=== PATIENT | male | born 1965 | race Caucasian/White ===

== ENCOUNTER 2024-03-17 06:05 | Inpatient (IN) | payer OTHER, SELFPAY ==
[2024-03-17] VITALS (24 sets, daily range): BP systolic 89–185; BP diastolic 49–150; BMI 44.8; BMI 43.5
[2024-03-17 02:48] LABS: % Basophils 0.4 % (0-2); % Eosinophils 0.8 % (0-6); % Immature Granulocytes 0.3 % (0-0.5); % Lymphocytes 10.6 % (20.5-51.1); % Monocytes 5.9 % (1.7-9.3); Absolute Basophils 0.1 10^3/uL (0-0.2); Absolute Eosinophils 0.1 10^3/uL (0-0.7); Absolute Lymphocytes 1.3 10^3/uL (1.2-3.4); Absolute Monocytes 0.7 10^3/uL (0.1-0.6); Absolute Neutrophils 10.3 10^3/uL (1.4-6.5); Hematocrit 42.1 % (39.0-52.0); Hemoglobin 14.1 g/dL (13.0-18.0); Mean Corp Hgb Conc. 33.5 g/dL (33.0-37.0); Mean Corpuscular Hgb 27.9 pg (27.0-31.0); Mean Corpuscular Volume 83.4 fL (80.0-94.0); Mean Platelet Volume 8.7 fL (7.4-10.4); Nucleated Red Blood Cells % 0 % (-); Platelet Count 322 10^3/uL (130-400); Red Blood Cell Count 5.05 10^6/uL (4.70-6.10); Red Cell Dist. Width 13.7 % (11.5-14.5); White Blood Cell Count 12.6 10^3/uL (4.8-10.8)
--- NOTE | 2024-03-17 02:48 | ED.GENMED ---
History of Present Illness
General
Chief Complaint: Breathing Problem
Source: patient and previous hospital records (Previous hospitalization July 2023 as well as March 2022 for very similar presentations. Treated for hypertensive urgency, CHF, rapid A-fib.)
Exam Limitations: none
Time Seen by Provider: 03/17/24 02:37
Nursing documentation reviewed up to this point in time: agreed with
Travel History
Have you had any contact with someone who has COVID-19?: No
Do you have any symptoms of coronavirus? Fever > 100 degrees, chills, cough, shortness of breath, sore throat, loss of taste or smell, muscle aches, or headache?: No
History of Present Illness
History of Present Illness:
This is a 59-year-old gentleman who has history of paroxysmal atrial fibrillation, CHF, hypertension, nonischemic cardiomyopathy previously hospitalized March 2022 and then again July 2023 for very similar presentations of progressive shortness
of breath over the past week with paroxysmal nocturnal dyspnea over the past 2-3 nights, progressive in nature and intermittent palpitations.
He admits to running out of his medications a few months ago as his insurance lapsed and he has been unable to afford them.
Similar medication noncompliance and financial constraints noted on previous hospitalizations.
He denies cough, denies fever nor chills. He does admit to some chest pressure, heaviness that began yesterday morning, persistent throughout the day, worse tonight.
He denies lower extremity edema nor pain.
Past History
Past History
ED Past Medical History: Arrthythmia (A-fib), CHF, HTN and Psychiatric (Anxiety, Depression, prior history of substance abuse)
Social History
Tobacco: Non-smoker
Alcohol: None
Drug: Former user
Personal: Single
Living: alone
Employment: Employed
Family History
Family History: Other (Noncontributory)
Phy Exam
Physical Exam
Physical Exam:
GENERAL: 59-year-old obese gentleman appears older than stated age. Awake and alert, appears in mild to moderate distress, mild to moderate tachypnea but able to speak in full sentences.
EYE: pupils equal and reactive
NECK: Supple, no significant adenopathy. Mild JVD.
ENT: o/p clr, mmm.
CARDIAC: Irregularly irregular, tachycardic
LUNGS: Mild to moderate acute respiratory distress, bilateral rales one third of the way up.
ABDOMEN: Obese, soft, without focal tenderness, no r/g, no cvat
NEUROLOGICAL: Alert and oriented, no focal neuro deficits
SKIN: Warm and dry, normal color, skin intact.
MUSCULOSKELETAL: Trace pretibial edema bilateral lower extremities, well perfused. Nontender.
PSYCH: Normal and appropriate interaction.
Scores
Heart Failure Risk
Heart Failure Risk Score: Yes
History of Stroke or TIA: No
History of intubation for respiratory distress: No
Heart rate on ED arrival >/= 110: Yes
SaO2 <90% on arrival on room air: No
HR >/=110 during 3min walk test (or too ill to perform test): Yes
ECG has acute ischemic changes: No
Urea >/=12mmol/L (BUN 33.6mg/dL): No
Serum CO2>/=35mmol/L: No
Troponin I or T elevated to OK Level (0.4mg/dL): No
NT-proBNP >/=5,000ng/L (5,000pg/ml): No
HF Risk Score: 2
Admission Status: MEDIUM RISK 9.2% Consider observation or discharge to home with homecare & f/u visit to PCP/[facility] Beveler, or SNF for treatment
Course
Orders/Labs/Results
Orders:
Orders
03/17/24 02:29
Electrocardiogram (*1) Urgent
Reason for Study: Shortness of Breath
03/17/24 02:30
EKG- Treatment ONCE
03/17/24 02:37
Complete Blood Count/With Diff Urgent
Comprehensive Metabolic Panel Urgent
NT-proBNP Urgent
Troponin I Urgent
03/17/24 02:45
Diltiazem 125 mg/125 ml Nss [Cardizem] 125 mg in 125 ml .ROUTE .STK-MED
Diltiazem HCl [Cardizem] 25 mg .ROUTE .STK-MED ONE
03/17/24 02:47
Diltiazem 125 mg/125 ml Nss [Cardizem] 125 mg in 125 ml IV NOW
Initial dose in mg/hr, then titrate:: 5
Titrate to keep:: Heart rate 80-100 bpm
Titrate by mg/hr:: 5 mg/hr
Frequency of titrations (minutes):: 15
Maximum dose in mg/hr:: 15
Diltiazem HCl [Cardizem] 25 mg IV NOW STA
Furosemide [Lasix] 80 mg IV NOW STA
CR Chest Portable - 1 View Urgent
Comment:
Reason For Exam: SOB
Reason Study Needs to be Portable: Patient Unstable
03/17/24 02:48
Furosemide [Lasix] 80 mg .ROUTE .STK-MED ONE
Abnormal Lab Results
03/17/24
02:37
WBC 12.6 H 10^3/uL
(4.8-10.8)
Absolute Neuts (auto) 10.3 H 10^3/uL
(1.4-6.5)
Absolute Monos (auto) 0.7 H 10^3/uL
(0.1-0.6)
Neutrophils % 82.0 H %
(42.2-75.2)
Lymphocytes % 10.6 L %
(20.5-51.1)
Sodium 134 L mmol/L
(135-145)
Glucose 123 H mg/dl
(70-99)
ALT 76 H U/L
(0-50)
Alkaline Phosphatase 155 H U/L
(38-126)
Troponin I 0.056 H* ng/ml
03/17/24 02:37
03/17/24 02:37
Vital Signs
Initial and Last Documented VS:
Initial Vital Signs
Temp Pulse Resp Pulse Ox
98.3 F 150 28 94
03/17/24 02:19 03/17/24 02:19 03/17/24 02:19 03/17/24 02:19
Last Documented Vital Signs
Temp Pulse Resp BP Pulse Ox
98.3 F 102 18 151/105 96
03/17/24 02:19 03/17/24 04:15 03/17/24 04:15 03/17/24 04:00 03/17/24 03:01
MDM/Problems Addressed
Differential Diagnosis Includes:
Patient presents with rapid A-fib, tachypnea quite concerning for acute CHF.
Chest pain concerning for ACS.
Similar presentations in July 2023 as well as March 2022.
He is noted to be significantly hypertensive with similar markedly elevated blood pressure readings noted upon initial presentation on previous occasions.
Labs are pending including BNP, troponin.
Will initiate IV Cardizem bolus and drip to assist with rate control and hopefully improve blood pressure. Will give an IV dose of Lasix.
Will consider IV nitroglycerin if blood pressure remains elevated.
Will check portable chest x-ray.
Pulse ox 92 to 93% on room air but moderate tachypnea/increased work of breathing which has improved with supplemental nasal cannula oxygen.
Unfortunately, patient continues to struggle with financial constraints, lack of healthcare coverage with again, inadvertent lapse in medications and follow-up with specialist.
Will plan to admit to hospitalist service.
Chronic conditions affecting care: HTN, Cardiomyopathy and Arrhythmia
Acute Exacerbation and/or Progression of Chronic Illness: HTN, Cardiomyopathy and Arrhythmia
*Radiology
Radiology exam reviewed: preliminary read by ED provider (Chest x-ray shows interstitial fullness bilaterally consistent with pulmonary edema. Moderate cardiomegaly.)
*Pulse Oximetry
Patient hypoxic: no
*EKG
Interpreted by ED Provider?: Yes
Interpretation: abnormal
Comparison EKG: changes noted (A-fib with rapid ventricular response has replaced normal sinus rhythm noted August 14, 2023)
Rate: tachycardiac
Rhythm: a-fib
[place]: normal axis
Interval: normal QT interval
QRS Pattern: normal QRS
Ischemia: non-specific ST changes
*Manufacturing Test Engineer Interpretation
Rate: tachycardiac
Interpretation: abnormal
Rhythm: a-fib
*Critical Care Note
Total Time (30-74mins, 75-104mins- exclusive of procedures): 30
comment:
Critical care statement: A total of 30 minutes of critical care time was provided for this patient. This includes management of unstable vital signs, evaluation of the patient at bedside, reviewing the patient's pertinent medical records, discussion
with consultants, review of old EKGs and review of pertinent medical records. This time with separate from time utilized to perform the aforementioned documented procedures
Update Note
Update Note:
03/17/2024 0457 AM
A-fib persists but marked improvement in heart rate with initiation of IV Cardizem.
Hypertension has markedly improved as well.
Patient is diuresing well after IV Lasix and moderate tachypnea has improved.
Troponin borderline elevated 0.056, similar borderline elevations noted in the past.
BNP elevated greater than 3000 and chest x-ray shows bilateral interstitial fullness/edema as well as moderate cardiomegaly, more pronounced compared to previous film in July.
Patient has been feeling poorly at least over the past week and it is unclear as to how long he has been in A-fib. This along with inadvertent discontinuation of Eliquis, this is why I have held off on electrical cardioversion.
Will admit to hospitalist service.
ED Attending Note
-
Portions of this chart may have been created with voice recognition software.� Occasional wrong word or��sound alike� substitutions may have occurred due to the inherent limitations of voice recognition software.
Discharge Plan
Departure
Patient Disposition: Admit
Date of Disposition: 03/17/24
Time of Disposition: 04:56
Admit to: Telemetry
Admit to doctor: Nikolay
Presentation/result/management discussed w/ accepting MD/DO: Hospitalist
Condition: Serious
Discharge Problem:
Atrial fibrillation with RVR, CHF (congestive heart failure), Hypertensive crisis
Prescriptions:
No Action
carvedilol 12.5 mg Tablet
12.5 mg PO BID Qty: 30 0RF
amlodipine 5 mg Tablet
5 mg PO DAILY Qty: 30 0RF
Eliquis 5 mg tablet
5 mg PO BID Qty: 60 0RF
Interventions
Interventions:
*Risk Screen - Suicide Last Done: 03/17/24 02:19
*Neglect/Abuse Screening Last Done: 03/17/24 02:19
*ED COVID-19 Vaccine History Last Done: 03/17/24 02:19
ED- Cardiac Assessment Last Done: 03/17/24 03:32
ED- Pulmonary Assessment Last Done: 03/17/24 03:32
Discharge Date and Time
Print Language: CAMEROONIAN
[2024-03-17] MEDS: CARDIZEM 125 IV ×3 (02:51→21:13)
[2024-03-17] MEDS: LASIX 80 MG IV (02:53)
[2024-03-17] MEDS: CARDIZEM 25 MG IV (02:53)
[2024-03-17 03:05] LABS: ALT (SGPT) 76 U/L (0-50); AST (SGOT) 55 U/L (17-59); Albumin 4.5 g/dl (3.5-5.0); Alkaline Phosphatase 155 U/L (38-126); Blood Urea Nitrogen 15 mg/dl (9-20); Calcium 9.2 mg/dl (8.4-10.2); Carbon Dioxide 22 mmol/L (22-30); Chloride 105 mmol/L (98-107); Estimated Creatinine Clearance 122 ml/min; Glucose 123 mg/dl (70-99); Potassium 4.2 mmol/L (3.5-5.1); Sodium 134 mmol/L (135-145); Total Protein 7.5 g/dl (6.3-8.2); eGFR > 60.00
[2024-03-17 03:34] LABS: NT-proBNP 3130 pg/ml; Troponin I 0.056 ng/ml
--- NOTE | 2024-03-17 05:13 | HPS.HSE ---
Family Physician
-
Family Physician: * NONE
Chief Complaint
-
shortness of breath
History of Present Illness
59-year-old male past medical history of paroxysmal atrial fibrillation, nonischemic cardiomyopathy, hypertension, anxiety/depression, presenting with progressive shortness of breath over the past few days particularly at night and when he lies down
flat and with exertion. He has chest pressure with exertion. Denies chest pain currently. Denies any dizziness or palpitations. He has increased lower extreme edema. He denies any cough or fevers or chills.
He ran out of his medications a few months ago because his insurance labs and he has been unable to afford them. He does not follow area attendant.
He denies smoking or alcohol use.
Medical History
Past Medical History
Past Medical History: Reports Other (paroxysmal atrial fibrillation, nonischemic cardiomyopathy, hypertension, anxiety/depression)
Past Surgical History: Reports None
Social History
Tobacco: Non-smoker
Alcohol: None
Drug: None
Family History
Family History: Not pertinent
Allergies / Home Medications
Allergies reflects when Allergies were last updated in [facility].
Home Medications with original date entered in [facility]
Allergy/Medication List:
Allergies
Allergy/AdvReac Type Severity Reaction Status Date / Time
No Known Allergies Allergy Verified 03/17/24 02:18
Home Medications
amlodipine 5 mg tablet 5 mg PO DAILY #30 tabs 08/16/23
carvedilol 12.5 mg tablet 12.5 mg PO BID #30 tabs 08/16/23
apixaban 5 mg tablet (Eliquis) 5 mg PO BID #60 tabs 08/18/23
Review of Systems
-
History Source: Patient
A 12 point ROS was completed and negative except as noted: Yes
Constitutional: Reports No Symptoms
EENT: Reports No Symptoms
Respiratory: Reports See HPI
Cardiac: Reports See HPI
Abdomen/GI: Reports No Symptoms
: Reports No Symptoms
Musculoskeletal: Reports No Symptoms
Skin: Reports No Symptoms
Neurological: Reports No Symptoms
Endocrine: Reports No Symptoms
Hematologic/Lymphatic: Reports No Symptoms
Psych: Reports No Symptoms
Physical Exam
Vital Signs
Vital Signs
Temp Pulse Resp BP Pulse Ox
98.3 F 102 18 151/105 96
03/17/24 02:19 03/17/24 04:15 03/17/24 04:15 03/17/24 04:00 03/17/24 03:01
Physical Exam
General: Well Developed, Well Nourished and No Apparent Distress
HEENT: NormoCephalic, Moist mucous membranes and Atraumatic
Respiratory: Clear
Cardiac: S1/S2, Tachycardia and Peripheral Edema; No Murmur or Rub
GI: Soft, Non Tender, Non Distended and Normal Bowel Sounds; No Organomegaly
Rectal: Deferred by Provider
Musculoskeletal: No Clubbing, No Cyanosis and No Edema
Skin: No Rash
Neuro: Nonfocal/grossly intact
Laboratory Results
-
03/17/24 02:37
03/17/24 02:37
Laboratory Results
Total Bilirubin 1.0 mg/dl (0.2-1.3) 03/17/24 02:37
AST 55 U/L (17-59) 03/17/24 02:37
ALT 76 U/L (0-50) H 03/17/24 02:37
Alkaline Phosphatase 155 U/L (38-126) H 03/17/24 02:37
Troponin I 0.056 ng/ml H* 03/17/24 02:37
Data Reviewed
-
Lab Data: Labs Reviewed by me
Old Records: Reviewed
Impression/Plan
-
IMPRESSION:
PLAN:
# Atrial fibrillation with RVR due to medication noncompliance
-Cardizem drip
-Continue Eliquis
-Cardiology consulted
# Acute on chronic HFrEF exacerbation
# History of nonischemic cardiomyopathy
-Chest x-ray shows pulmonary edema
-Cardiac BNP 3100
-Check I's and O's, daily weights
-80 IV Lasix given, continue 40 IV twice daily
-Check echo
# Nonischemic myocardial injury
-Troponin 0.056, continue to trend
Essential hypertension
-Continue Coreg, amlodipine
Anxiety/depression
Full code
DVT prophylaxis�Eliquis
Cardiac diet
--- NOTE | 2024-03-17 07:22 | PTCARENOTE ---
Pt admitted to IVU ~0600. Pt belongings w/ pt. Cardizem infusing at 15mg/hr. oriented pt to unit.
[2024-03-17 08:00] LABS: Troponin I 0.068 ng/ml
[2024-03-17] MEDS: COREG 12.5 MG PO ×2 (08:14→19:08)
[2024-03-17] MEDS: NORVASC 5 MG PO (08:14)
[2024-03-17] MEDS: LASIX 40 MG IV ×2 (08:15→16:06)
[2024-03-17] MEDS: ELIQUIS 5 MG PO ×2 (08:20→19:08)
--- NOTE | 2024-03-17 09:05 | CON.CAR ---
Addendum entered and electronically signed by Hugo Sullivan MD 03/17/24 10:09:
I saw and examined the patient.
The BREAKFAST MANAGER's note was reviewed and I agree with the note.
Comment: 59 y/o male with hypertension, anxiety, CM with most recent EF 45-50%, HFmEF, PAF, medical non-compliance due to financial/insurance issues. He is here for 2-3 days of SOB, which became severe. His symptoms are consistent with acute on
chronic HF exacerbation. Unfortunately, he is working on 2 days a week and medications and thus compliance will be an issue.
- IV lasix
- Dilt gtt for now likely transition tomorrow
- intermediate project manager AC concern given medication and financial instability
Original Note:
Consultation
Consultation Request
Date/Time Consultation Requested: 03/17/24612
Date/Time Consultation Performed: 03/17/24 0850
Requesting Provider: Dr. Link
Performing Provider: Violeta POTTER for Dr. Sullivan
Reason for Consultation: AFIB, CHF
Medical History
-
Chief Complaint: SOB
History of Present Illness:
59 y/o male with hypertension, anxiety, CM with most recent EF 45-50%, HFmEF, PAF, medical non-compliance due to financial/insurance issues. He is here for 2-3 days of SOB, which became severe. Worse with exertion and laying. He was seen to have
severely elevated BP on arrival, AFIB with RVR, and also [id number] HFMEF. He is admitted and was placed on IV lasix, IV diltiazem drip, and otherwise his previous medicines were resumed. He reports he has taken no medicines for about 5 months
due to insurance issues and has not followed up in the office for the same reason. He still appears SOB to my assessment, but reports that he feels SO much better than prior to coming in.
Past Medical History
Past Medical History: Arrhythmias, CHF, HTN and Other (as above)
Social History
Tobacco: Non-Smoker
Alcohol: Occasional
Family History
Family History: Reviewed & Not Pertinent
Allergies / Home Medications
Allergy/AdvReac Type Severity Reaction Status Date / Time
No Known Allergies Allergy Verified 03/17/24 02:18
These are previous medicines that he has no been taking as noted
�Medication �Instructions �Recorded �Confirmed �Type
amlodipine 5 mg tablet 5 mg PO DAILY #30 tabs 08/16/23 Rx
carvedilol 12.5 mg tablet 12.5 mg PO BID #30 tabs 08/16/23 Rx
apixaban 5 mg tablet (Eliquis) 5 mg PO BID #60 tabs 08/18/23 Rx
Review of Systems
-
History Source: Patient
All other systems: Negative unless noted
Respiratory: Trouble Breathing
Physical Exam
Vital Signs
Temp Pulse Resp BP Pulse Ox
98.5 F 99 20 153/86 96
03/17/24 07:54 03/17/24 08:00 03/17/24 07:54 03/17/24 07:55 03/17/24 07:54
Lab Results
03/17/24 02:37
03/17/24 02:37
Troponin I 0.068 ng/ml H* 03/17/24 06:47
Jcb-H-Iorklljcazg Pept 3130 pg/ml 03/17/24 02:37
Physical Exam
General: Well Developed, Well Nourished and No Apparent Distress
HEENT: Normocephalic and Anicteric
Respiratory: Other (diminished to b/l bases)
Cardiac: Irregular Rhythm
Skin: Warm and Dry
Neuro: AO x 3
Psych: Calm
Impression / Plan
-
Yvvhr-ht-aqqcxme HFmEF:
-BNP/CXR and symptoms consistent with CHF
-most recent echo with EF 45-50%
-agree with IV lasix, which requires intensive monitoring for toxicity
-CHF education
-limit sodium/fluid
HTN: improving
-severe on arrival. In setting of having stopped meds as OP.
-monitor with resumption of CCB/BB, as well as diuresis
AFIB with RVR:
-Coreg resumed
-remains on diltiazem drip- monitor telemetry
-Eliquis resumed for his [id number] score of 2 (HTN, CHF)- there are issues with cost for NOACs due to lack of insurance, and I do not think warfarin would be safe for him due to follow-up issues (frequent lab draws etc). He has not come to
follow-up office visits either. C/s case management to see if there are options for him for assistance.
-patient likely with sleep apnea- would benefit from OP assessment
Abnormal troponin:
-suspect acute non-ischemic myocardial injury in setting of HTN, tachycardia, and CHF exacerbation
-trend to peak, echo ordered by primary team
-cath 2021 with no CAD
NICM:
-EF 45-50% most recently
-updated echo ordered
-meds limited by compliance, cost, and
Will need CM consultation this admit to assess options to help with compliance (patient assistance, etc.)
Data Reviewed
-
EKG: Tracing Personally Visualized and interpreted (AFIB with RVR 168 BPM, NS ST abnormalities)
Radiology: Report Reviewed by me (CXR 03/17/24: Findings consistent with pulmonary edema. Haziness of each hemidiaphragm, suggestive of small bilateral pleural effusions.)
Medical Tests (Nuc Med, Echo etc): Report Reviewed by me (Echo 08/14/23: With the use of Lumason there is mid septal dyskinesis appreciated with mild LV dysfunction. Left ventricular ejection fraction estimated at 45-50%. Mild concentric left
ventricular hypertrophy. Mildly dilated aorta, aortic root 4 cm.)
Labs: Labs Reviewed by me
--- NOTE | 2024-03-17 09:59 | PTCARENOTE ---
Addendum entered by Isabela Garsia RN 03/17/24 18:04:
Cardizem drip running at 5 mg /hr not 15 mg.
Original Note:
Assumed care of pt from night RN. Pt received awake and alert, Ox3. CM shows AF 90-100's, Cardizem drip infusing at 15 mg /hr through RFA. Pt denies any pain or discomfort. Diuresing well after am Lasix.
--- NOTE | 2024-03-17 11:52 | CM ---
Reviewed chart. Met with Mr. Saenz to review discharge plans. He states prior to admission he rents a room from his landlord in a spilt level home with seven steps to enter. He states he has eight steps to get to bedroom/full bathroom. He states
prior to admission he was independent with ambulation and adls. He states he currently blake not have any health insurance. Reviewed with the patient assistance program for [place]. Gave him the application to complete. He states he already used
the one month free coupon. [facility] to check cost of Amlodipine 5 mg po would be $9.00 a month and Coreg 12.5 would be $4.00 a month. He feels he would be able to afford $13.00 a month. Medical work-up in progress. The
discharge plan is to return home when medically stable.
--- NOTE | 2024-03-17 12:19 | W.PN.HOSP.TC ---
Today's Communication/Plan
-
IV Cardizem
IV Lasix.
Assessment / Plan
Assessment / Plan
Impression:
Chronic atrial fibrillation with rapid ventricular response
Acute CHF reduced EF
Acute pulmonary edema secondary to CHF
Nonischemic myocardial injury
Essential hypertension.
Anxiety/depression
Obesity with BMI of 43
Medication noncompliance due to lack of insurance
Plan:*
Chronic atrial fibrillation with RVR.
Rate improved with initiation of Cardizem drip.
Continue for another 24 hours.
Continue anticoagulation with Eliquis
Acute CHF reduced EF at 35%. Nonischemic cardiomyopathy.
Update echocardiogram
Suspect decompensated in the settings of rapid ventricular rate.
Chest x-ray with pulmonary edema upon presentation
Improved and responding to IV diuresis.
Continue Lasix 40 mg IV twice daily
Monitor daily weight, renal function and hemodynamics
Updated echocardiogram pending.
Nonischemic myocardial injury with troponin at 0.05. Trend
Essential hypertension
Continue preadmission Coreg and amlodipine.
Case management consultation for discharge planning,
Anticipated Discharge: > 48 hours
Subjective/Interval History
-
Date of Service: March 17, 2024
Objective Data
-
Labs:
Laboratory Results
03/17/24
02:37
WBC 12.6 H
Hgb 14.1
Hct 42.1
Plt Count 322
Sodium 134 L
Potassium 4.2
Chloride 105
Carbon Dioxide 22
BUN 15
Creatinine 0.9
Glucose 123 H
Calcium 9.2
Total Bilirubin 1.0
AST 55
ALT 76 H
Alkaline Phosphatase 155 H
Vital Signs:
Vital Signs
Temp Pulse Resp BP Pulse Ox
99 F 78 20 116/85 94
03/17/24 11:21 03/17/24 11:45 03/17/24 11:21 03/17/24 11:00 03/17/24 11:21
I&O
03/16/24 03/17/24 03/18/24
06:59 06:59 06:59
Output Total 1849
Balance -1849 / -1849
Physical Exam
-
General: Well Developed and No Apparent Distress
HEENT: Normocephalic, Atraumatic and Moist Mucous Membranes
Respiratory: Clear to Auscultation
Cardiac: Regular Rhythm and S1/S2; Negative Murmur, Rub or Gallop
GI: Soft, Nontender, Nondistended and Normal Bowel Sounds; Negative Organomegaly
Rectal: Deferred by Provider
Musculoskeletal: No Clubbing, No Cyanosis and No Edema
Skin: Negative Rash
Neuro: Awake, Alert, Oriented, AO x 3 and Nonfocal/Grossly Intact
[2024-03-17 13:20] LABS: Troponin I 0.085 ng/ml
--- NOTE | 2024-03-17 13:25 | CARDSERVLU ---
Echocardiogram with Lumason completed after protocol screening completed. Allergies verified.
Patent IV site: _L AC____
IV site flushed with 0.9% NaCl pre and post administration.
Diluted bolus method utilized to enhance visualization of ventricular gates.
Total volume given: __4.5__ mL
Patient tolerated all procedures well without complications.
[2024-03-17 19:21] LABS: Troponin I 0.064 ng/ml
--- NOTE | 2024-03-17 21:14 | PTCARENOTE ---
Pt received start of shift, HR Afib 70s-100s. Cardizem infusing at 5mg/hr. Educated pt on plan of care, pt states no questions at this time. Pt denies any CP, worsening SOB, or any lightheadedness/dizziness. Pt informed to notify RN if any changes,
call cedeño within reach.
[2024-03-18 03:08] VITALS: BP 140/83
[2024-03-18 03:51] LABS: % Basophils 0.5 % (0-2); % Eosinophils 0.9 % (0-6); % Immature Granulocytes 0.3 % (0-0.5); % Lymphocytes 15.8 % (20.5-51.1); % Monocytes 7.9 % (1.7-9.3); % Neutrophils 74.6 % (42.2-75.2); Absolute Eosinophils 0.1 10^3/uL (0-0.7); Absolute Lymphocytes 1.4 10^3/uL (1.2-3.4); Absolute Monocytes 0.7 10^3/uL (0.1-0.6); Absolute Neutrophils 6.5 10^3/uL (1.4-6.5); Hematocrit 37.1 % (39.0-52.0); Hemoglobin 12.6 g/dL (13.0-18.0); Mean Corpuscular Hgb 28.5 pg (27.0-31.0); Mean Corpuscular Volume 83.9 fL (80.0-94.0); Mean Platelet Volume 9.1 fL (7.4-10.4); Nucleated Red Blood Cells % 0 % (-); Platelet Count 251 10^3/uL (130-400); Red Blood Cell Count 4.42 10^6/uL (4.70-6.10); Red Cell Dist. Width 13.8 % (11.5-14.5); White Blood Cell Count 8.7 10^3/uL (4.8-10.8)
[2024-03-18 04:28] LABS: ALT (SGPT) 51 U/L (0-50); AST (SGOT) 35 U/L (17-59); Alkaline Phosphatase 128 U/L (38-126); Blood Urea Nitrogen 29 mg/dl (9-20); Calcium 9.5 mg/dl (8.4-10.2); Carbon Dioxide 27 mmol/L (22-30); Chloride 99 mmol/L (98-107); Estimated Creatinine Clearance 77 ml/min; Glucose 114 mg/dl (70-99); Potassium 3.9 mmol/L (3.5-5.1); Sodium 134 mmol/L (135-145); Total Bilirubin 0.9 mg/dl (0.2-1.3); Total Protein 6.6 g/dl (6.3-8.2); eGFR 57.18
[2024-03-18 07:02] VITALS: BP 138/99
[2024-03-18] MEDS: ELIQUIS 5 MG PO ×2 (08:49→19:40)
[2024-03-18] MEDS: NORVASC 5 MG PO (08:49)
[2024-03-18] MEDS: LASIX 40 MG IV (08:50)
[2024-03-18] MEDS: COREG 12.5 MG PO (08:50)
[2024-03-18] MEDS: FLUSH (NSS) 1 FLUSH IV (08:51)
--- NOTE | 2024-03-18 09:20 | PTCARENOTE ---
very pleasant patient, monitor shows Afib, VSS. IV Cardizem drip remains at 5ml/hr via right ac without difficulties.
[2024-03-18 10:00] VITALS: BMI 43.2
--- NOTE | 2024-03-18 10:13 | W.PN.CD ---
Addendum entered and electronically signed by Tucker Oconnor MD 03/18/24 10:43:
-
-
Given mild bump in creatinine we will hold off on initiation of lisinopril until creatinine falls.
-
-
Original Note:
Today's Communication / Plan
-
Stop amlodipine
Stop IV dilt
Increase Coreg (BP and HR control). Move to Toprol if HR needs more control
Begin ADRIENNE-I
No Lasix today
Continue Eliquis
Follow BMP
Impression / Plan
-
Dlite-op-qlkljiu HFrEF with a nonischemic cardiomyopathy (no cad cath 2021)
-BNP(3130) when compensated pBNP 716 /CXR and symptoms consistent with CHF
-prior EF 45-50%
-Echo 03/17/2024: LVEF 40%, LA normal, mild TR, nml est PASP/RA
-agree with IV lasix, which requires intensive monitoring for toxicity
-HF education. Na+/Fluid restriciton
-rate control AFib
HTN, better
AFIB with RVR
-Unknown duration, unknown pattern, he has had prior cardioversion
-Rate better, moving to PO rate control
-Eliquis resumed for his [id number] score of 2 (HTN, HF)
-there are issues with cost for NOACs due to lack of insurance
-warfarin may not be safe with poor followup
-Reviewed modifiable risk factors: ETOH, BMI, Exercise, Sleep apnea (if present)
-Reasonable to consider ablation if he follows up with us. I reviewed this with patient
Abnormal troponin, peak 0.068 => most c/w acute non-ischemic myocardial injury from HTN, tachycardia, and HF exacerbation
-cath 2021 with no CAD
Subjective:
Feels better
Physical Exam
Vital Signs/Labs
Vital Signs
Temp Pulse Resp BP Pulse Ox
98.5 F 79 20 138/99 94
03/18/24 07:00 03/18/24 09:45 03/18/24 07:00 03/18/24 08:50 03/18/24 08:30
03/17/24 03/18/24 03/19/24
06:59 06:59 06:59
Actual Weight 141.7 kg 137.4 kg
03/18/24 03:16
03/18/24 03:16
03/17/24
02:37
Dpq-V-Sfoyowepoff Pept 3130
LAB Results
03/17/24 03/17/24 03/17/24
02:37 06:47 12:23
Troponin I 0.056 H* 0.068 H* 0.085 H*
03/17/24
18:37
Troponin I 0.064 H*
Physical Exam
Constitutional: No acute distress
Cardiovascular: Rhythm/rate is irregular
Respiratory: Respiratory effort normal and Lungs clear to auscul.
GI: Soft and Distention absent
Neuro/Psych: AO x 3
Data Reviewed
-
Date of Service: March 18, 2024
[2024-03-18 12:26] VITALS: BP 135/91
--- NOTE | 2024-03-18 13:51 | W.PN.HOSP.TC ---
Today's Communication/Plan
-
Improved with diuresis
Hold further Lasix with bump of creatinine
Attempt to introduce ADRIENNE patient over the next 24 hours depends on renal function
Outpatient diuretic regimen to be determined
A-fib rate controlled off IV Cardizem back to Coreg at increased dose.
Increase activity
Assessment / Plan
Assessment / Plan
Impression:
Chronic atrial fibrillation with rapid ventricular response
Acute CHF reduced EF
Acute pulmonary edema secondary to CHF
Nonischemic myocardial injury
MIRACLE secondary to diuresis
Essential hypertension.
Anxiety/depression
Obesity with BMI of 43
Medication noncompliance due to lack of insurance
Plan:*
Chronic atrial fibrillation with RVR.
Transition off Cardizem drip to higher dose of Cardizem
Continue anticoagulation with Eliquis
Acute CHF reduced EF at 35%. Nonischemic cardiomyopathy.
Updated echo 03/17: LVEF 40% with no significant change from prior study
Suspect decompensated in the settings of rapid ventricular rate.
Chest x-ray with pulmonary edema upon presentation
Improved and responding to IV diuresis. Weight reduction 141-137 kg. Improved hypoxia
Noted bump in creatinine 1.4
Hold further Lasix following BMP
GDMT for CHF reduced EF with attempted introduction of ADRIENNE inhibitor likely over the next 24 hours once stabilized creatinine
Outpatient diuretic regimen to be determined.
Nonischemic myocardial injury with troponin at 0.05.
Essential hypertension
Continue preadmission Coreg.
Amlodipine discontinued
Attempt to introduce ADRIENNE inhibition
Case management consultation for discharge planning,
Anticipated Discharge: 24 - 48 hours
Subjective/Interval History
-
Date of Service: March 18, 2024
Objective Data
-
Labs:
Laboratory Results
03/18/24
03:16
WBC 8.7
Hgb 12.6 L
Hct 37.1 L
Plt Count 251 D
Sodium 134 L
Potassium 3.9
Chloride 99
Carbon Dioxide 27
BUN 29 H
Creatinine 1.4 H
Glucose 114 H
Calcium 9.5
Total Bilirubin 0.9
AST 35
ALT 51 H
Alkaline Phosphatase 128 H
Vital Signs:
Vital Signs
Temp Pulse Resp BP Pulse Ox
97.8 F 79 20 138/99 97
03/18/24 12:24 03/18/24 09:45 03/18/24 12:24 03/18/24 08:50 03/18/24 12:24
I&O
03/17/24 03/18/24 03/19/24
06:59 06:59 06:59
Intake Total 480 / 480
Output Total 2100 / 2100 1500 / 1500
Balance -1620 / -1620 -1500 / -1500
Physical Exam
-
General: Well Developed and No Apparent Distress
HEENT: Normocephalic, Atraumatic and Moist Mucous Membranes
Respiratory: Clear to Auscultation
Cardiac: Regular Rhythm and S1/S2; Negative Murmur, Rub or Gallop
GI: Soft, Nontender, Nondistended and Normal Bowel Sounds; Negative Organomegaly
Rectal: Deferred by Provider
Musculoskeletal: No Clubbing, No Cyanosis and No Edema
Skin: Negative Rash
Neuro: Nonfocal/Grossly Intact
--- NOTE | 2024-03-18 15:38 | CM ---
priced eliquis with pts perscripton plan- cost is $1/month- this is a [place] policy the cost any meds would be is $3/month. Martha Garibay NP aware
[2024-03-18 15:55] VITALS: BP 106/67
[2024-03-18 19:22] VITALS: BP 120/67
[2024-03-18] MEDS: COREG 25 MG PO (19:40)
--- NOTE | 2024-03-18 21:59 | PTCARENOTE ---
Pt ambulating the room as self. sister at bedside at change of shift. POC discussed- pt verbalized understanding. VSS AFIB on the monitor. 70s- 100s. afib and HF education provided.
[2024-03-18 22:10] VITALS: BP 104/77
[2024-03-19 04:26] VITALS: BP 125/81
[2024-03-19 05:01] VITALS: BMI 43.2
[2024-03-19 05:39] LABS: Blood Urea Nitrogen 35 mg/dl (9-20); Calcium 9.9 mg/dl (8.4-10.2); Carbon Dioxide 27 mmol/L (22-30); Chloride 100 mmol/L (98-107); Estimated Creatinine Clearance 90 ml/min; Glucose 102 mg/dl (70-99); Potassium 4.2 mmol/L (3.5-5.1); Sodium 133 mmol/L (135-145); eGFR > 60.00
--- NOTE | 2024-03-19 08:12 | W.PN.CD ---
Today's Communication / Plan
-
-Continue diuresis with IV Lasix
Impression / Plan
-
Cjesg-cx-fckmhki HFrEF with a nonischemic cardiomyopathy (no cad cath 2021)
-Echo 03/17/2024: LVEF 40% -possible tachycardia induced cardiomyopathy
-BNP(3130) when compensated pBNP 716 /CXR and symptoms consistent with CHF
-prior EF 45-50%
-Echo 03/17/2024: LVEF 40%, LA normal, mild TR, nml est PASP/RA
-Continue IV lasix, which requires intensive monitoring for toxicity
-HF education. Na+/Fluid restriciton
-rate control AFib
HTN, better
AFIB with RVR
-Unknown duration, unknown pattern, he has had prior cardioversion
-Rate better, moving to PO rate control
-Eliquis resumed for his [id number] score of 2 (HTN, HF)
-there are issues with cost for NOACs due to lack of insurance
-warfarin may not be safe with poor followup
-Reviewed modifiable risk factors: ETOH, BMI, Exercise, Sleep apnea (if present)
-Reasonable to consider ablation if he follows up with us.
Abnormal troponin, peak 0.068 => most c/w acute non-ischemic myocardial injury from HTN, tachycardia, and HF exacerbation
-cath 2021 with no CAD
Subjective:
Feels better
Physical Exam
Vital Signs/Labs
Vital Signs
Temp Pulse Resp BP Pulse Ox
98.1 F 92 20 125/81 96
03/19/24 05:21 03/19/24 07:00 03/19/24 05:21 03/19/24 04:26 03/19/24 05:21
03/18/24 03/19/24 03/20/24
06:59 06:59 06:59
Actual Weight 137.4 kg 136.5 kg
03/18/24 03:16
03/19/24 07:00
03/17/24
02:37
Bpy-B-Fwkgmgdvmei Pept 3130
LAB Results
03/17/24 03/17/24 03/17/24
02:37 06:47 12:23
Troponin I 0.056 H* 0.068 H* 0.085 H*
03/17/24
18:37
Troponin I 0.064 H*
Physical Exam
Constitutional: No acute distress and Comfortable
EENT: Anicteric and Moist mucous membranes
Cardiovascular: Rhythm/rate is irregular, JVD present and Systolic murmur present
Respiratory: Respiratory effort normal and Crackles Present
GI: Distention absent and Non tender
Neuro/Psych: Alert, Oriented and AO x 3
Data Reviewed
-
Date of Service: March 19, 2024
Medical Decision Making: Reviewed Test Results, Independent Historian Assessment, Test Interpretation and Review of Case with other Provider
EKG: Tracing Personally Visualized and interpreted
Echo: Report Reviewed by me
Labs: Labs Reviewed by me
Old Records: Reviewed
--- NOTE | 2024-03-19 08:14 | W.PN.HOSP.TC ---
Today's Communication/Plan
-
Restart Lasix
Assessment / Plan
Assessment / Plan
CVS: S1-S2 irregular
Chest: CTA B/L
Abdomen: Soft, NT / Bowel sounds present
Extremities: mild pedal edema, normal pulses
FRONT DESK SUPERVISOR: Non focal exam
#Chronic atrial fibrillation with rapid ventricular response
Rates are controlled with Coreg 25 twice daily
Off Cardizem drip
Anticoagulation with Eliquis
#Acute CHF reduced EF
Acute pulmonary edema secondary to CHF
Nonischemic cardiomyopathy.
Echo 03/17: LVEF 40% with no significant change from prior study
Suspect decompensated in the settings of rapid ventricular rate.
Chest x-ray with pulmonary edema upon presentation
Improved and responding to IV diuresis. Weight reduction 141-136.5 kg.
Improved hypoxia
ADRIENNE inhibitor eventually
#Nonischemic myocardial injury
# Mild hyponatremia secondary to fluid overload-follow
#MIRACLE secondary to diuresis
Creat better
resume Lasix
#Essential hypertension-Coreg
Amlodipine stopped
# Elevated transaminases-getting better likely secondary to hepatic congestion
# Suspected sleep apnea-I shared with the patient about getting sleep study done as outpatient
#Anxiety/depression
#Obesity with BMI of 43
#Medication noncompliance due to lack of insurance
#DVT Prophylaxis-Eliquis
Discussed with nursing
Anticipated Discharge: 24 - 48 hours
Subjective/Interval History
-
Date of Service: March 19, 2024
Objective Data
-
Labs:
Laboratory Results
03/19/24 03/19/24
04:56 07:00
Sodium 133 L Cancelled
Potassium 4.2 Cancelled
Chloride 100 Cancelled
Carbon Dioxide 27 Cancelled
BUN 35 H Cancelled
Creatinine 1.2 Cancelled
Glucose 102 H Cancelled
Calcium 9.9 Cancelled
Vital Signs:
Vital Signs
Temp Pulse Resp BP Pulse Ox
98.1 F 92 20 125/81 96
03/19/24 05:21 03/19/24 07:00 03/19/24 05:21 03/19/24 04:26 03/19/24 05:21
I&O
03/18/24 03/19/24 03/20/24
06:59 06:59 06:59
Intake Total 480 / 480 255 / 255
Output Total 2099 / 2099 2150 / 2150
Balance -1620 / -1620 -1895 / -1895
[2024-03-19 08:36] VITALS: BP 136/94
[2024-03-19 09:11] LABS: Magnesium 1.7 mg/dl (1.6-2.3)
[2024-03-19] MEDS: COREG 25 MG PO ×2 (09:15→20:35)
[2024-03-19] MEDS: FLUSH (NSS) 2 FLUSH IV (09:16)
[2024-03-19] MEDS: LASIX 40 MG IV ×2 (09:16→16:35)
[2024-03-19] MEDS: ELIQUIS 5 MG PO ×2 (09:16→20:35)
--- NOTE | 2024-03-19 09:45 | PTCARENOTE ---
Received patient this morning oob ambulating in his room. Patient is GAVIN, seen by Dr. Vázquez and will restart IV lasix now that creatinine has returned to normal.
[2024-03-19 11:46] VITALS: BP 123/79
--- NOTE | 2024-03-19 12:00 | PTCARENOTE ---
Confirming medication list with the patient and his sisters. Patient states he has not taken any medications for the past 5 months thinking that his insurance was no longer covering them. Primary pharmacy changed to [facility] as recommended by case
facility manager histology since they deliver and the patient does not drive. The sisters are arranging to be available for the patients's follow up cardiology appointment and inquiring about when an ablasion might take place. Cardiology notified and will further
discuss with the patient.
[2024-03-19 15:33] VITALS: BP 117/76
[2024-03-19 20:27] VITALS: BP 110/79
--- NOTE | 2024-03-19 21:13 | PTCARENOTE ---
pt without complaints- resting in bed- POC discussed- AFIB on the monitor in the 80s- 90s. ambulating as a self. Call cedeño within reach.
[2024-03-19 23:03] VITALS: BP 94/73
[2024-03-20] VITALS (9 sets, daily range): BP systolic 114–142; BP diastolic 72–113; BMI 42.7
[2024-03-20] MEDS: TYLENOL 1000 MG PO (04:56)
[2024-03-20] MEDS: MYLICON 80 MG PO (04:56)
[2024-03-20] MEDS: SENOKOT 8.59999999999999964 MG PO (04:56)
--- NOTE | 2024-03-20 05:02 | PTCARENOTE ---
when gathering pts morning labs and vitals- he stated that he was having LLQ abdominal pain intermittent in nature but sharp- 06/01. + BS x4 quadrants- Bladder scan was 27- pt states he a BM the past 2 days- does not note difficultly passing stool.
reports passing gas- without improvement in pain. 131/86 HR 80s-90s. afebrile. TIANA Cook provided orders for Tylenol, Senokot and simethicone- given per JAN. encouraged to reach out if nothing seems better within the next hours or so.
[2024-03-20 05:55] LABS: Blood Urea Nitrogen 34 mg/dl (9-20); Calcium 9.8 mg/dl (8.4-10.2); Carbon Dioxide 27 mmol/L (22-30); Chloride 96 mmol/L (98-107); Estimated Creatinine Clearance 83 ml/min; Glucose 107 mg/dl (70-99); Potassium 4.3 mmol/L (3.5-5.1); Sodium 132 mmol/L (135-145); eGFR > 60.00
[2024-03-20 08:56] LABS: Glucose - Point of Care 121 mg/dl (70-99)
[2024-03-20] MEDS: NSS 250 IV (09:00)
[2024-03-20] MEDS: ELIQUIS 5 MG PO ×2 (09:08→19:51)
[2024-03-20] MEDS: FLUSH (NSS) 1 FLUSH IV (09:08)
--- NOTE | 2024-03-20 09:11 | PTCARENOTE ---
Patient called nurse into the room, he was lying in bed stating he felt dizzy. Was lying in bed when he said he broke out in a cold sweat, felt dizzy, lightheaded and his vision was 'spinning'. Had lower abdominal discomfort earlier but stated that
pain was a 0/10 at rest. BP initially 136/113- AF on the monitor with HR in the 90's, pulse ox 92% on RA patient pale and extremely diaphoretic. EKG done, placed on 2L NC, accu check 121. Dr. Vázquez notified and in to see the patient. Patient
states symptoms are less but still feels dizzy. Will given fluid bolus as ordered, send labs and CT as ordered. Patient instructed he needs to remain in bed, call cedeño in reach.
--- NOTE | 2024-03-20 09:23 | W.PN.HOSP.TC ---
Today's Communication/Plan
-
EKG ordered and reviewed atrial fibrillation no ST-T changes noted in terms of ischemia
Head CT as the patient is on Eliquis
Hold Coreg and Lasix this morning as his blood pressure is really borderline
250 mL of IV fluids
CT scan of the abdomen and pelvis with p.o. and IV contrast given pain
Bedrest for the next 4 hours
Troponin to rule out MO
Assessment / Plan
Assessment / Plan
Saw pt twice today. First time he had mild suprapubic area tenderness and pain. I was called back in the room as patient suddenly felt dizzy and sweaty. He did not have any chest pain.
CVS: S1-S2 irregular
Chest: CTA B/L
Abdomen: Soft, NT / Bowel sounds present
Extremities: mild pedal edema, normal pulses
GENDER STUDIES PROFESSOR: No nystagmus, no facial droop, good strength bilateral upper extremity lower extremity
# Sudden onset of dizziness, sweaty
EKG ordered and reviewed atrial fibrillation no ST-T changes noted in terms of ischemia
Head CT as the patient is on Eliquis
Hold Coreg and Lasix this morning as his blood pressure is really borderline
250 mL of IV fluids
CT scan of the abdomen and pelvis with p.o. and IV contrast given pain
Bedrest for the next 4 hours
Troponin to rule out MO
#Chronic atrial fibrillation with rapid ventricular response
Rates are controlled with Coreg 25 twice daily-hold now as above
Anticoagulation with Eliquis
#Acute CHF reduced EF
Acute pulmonary edema secondary to CHF
Nonischemic cardiomyopathy.
Echo 03/17: LVEF 40% with no significant change from prior study
Suspect decompensated in the settings of rapid ventricular rate.
Chest x-ray with pulmonary edema upon presentation
Improved and responding to IV diuresis. Weight reduction 141-135.1 kg.
Improved hypoxia
ADRIENNE inhibitor eventually
#Nonischemic myocardial injury
# Mild hyponatremia secondary to fluid overload-follow
#MIRACLE secondary to diuresis
Creat better
Hold Lasix as above
#Essential fjfcyplhllpy-Drjvu-cjst as above
Amlodipine stopped
# Elevated transaminases-getting better likely secondary to hepatic congestion
# Suspected sleep apnea-I shared with the patient about getting sleep study done as outpatient
#Anxiety/depression
#Obesity with BMI of 43
#Medication noncompliance due to lack of insurance
#DVT Prophylaxis-Eliquis
Discussed with nursing at bedside
Spoke to patient's sister and updated regarding events this morning
total time spent with both visits 56 min
Anticipated Discharge: > 48 hours
Subjective/Interval History
-
Date of Service: March 20, 2024
Objective Data
-
Labs:
Laboratory Results
03/20/24
04:33
Sodium 132 L
Potassium 4.3
Chloride 96 L
Carbon Dioxide 27
BUN 34 H
Creatinine 1.3
Glucose 107 H
Calcium 9.8
Vital Signs:
Vital Signs
Temp Pulse Resp BP Pulse Ox
98.9 F 101 20 120/87 97
03/20/24 08:26 03/20/24 08:26 03/20/24 08:26 03/20/24 08:26 03/20/24 08:26
I&O
03/19/24 03/20/24 03/21/24
06:59 06:59 06:59
Intake Total 255 / 255 1140 / 1140
Output Total 2150 / 2150 1850 / 1850 700 / 700
Balance -1895 / -1895 -710 / -710 -700 / -700
--- NOTE | 2024-03-20 09:41 | W.PN.CD ---
Today's Communication / Plan
-
-Edema much improved but still fluid overloaded continue diuresis.
Impression / Plan
-
Zlzcz-jr-qqlhvhu HFrEF with a nonischemic cardiomyopathy (no cad cath 2021)
-Echo 03/17/2024: LVEF 40% -possible tachycardia induced cardiomyopathy
-BNP(3130) when compensated pBNP 716 /CXR and symptoms consistent with CHF
-prior EF 45-50%
-Echo 03/17/2024: LVEF 40%, LA normal, mild TR, nml est PASP/RA
-Continue IV lasix, which requires intensive monitoring for toxicity
-HF education. Na+/Fluid restriciton
-rate control AFib
HTN, better
AFIB with RVR
-Unknown duration, unknown pattern, he has had prior cardioversion
-Rate better, moving to PO rate control
-Eliquis resumed for his [id number] score of 2 (HTN, HF)
-there are issues with cost for NOACs due to lack of insurance
-warfarin may not be safe with poor followup
-Reviewed modifiable risk factors: ETOH, BMI, Exercise, Sleep apnea (if present)
-Reasonable to consider ablation if he follows up with us.
Abnormal troponin, peak 0.068 => most c/w acute non-ischemic myocardial injury from HTN, tachycardia, and HF exacerbation
-cath 2021 with no CAD
Subjective:
Feels better
Physical Exam
Vital Signs/Labs
Vital Signs
Temp Pulse Resp BP Pulse Ox
98.9 F 101 20 120/87 97
03/20/24 08:26 03/20/24 08:26 03/20/24 08:26 03/20/24 08:26 03/20/24 08:26
03/19/24 03/20/24 03/21/24
06:59 06:59 06:59
Actual Weight 136.5 kg 135.1 kg
03/18/24 03:16
03/20/24 04:33
Magnesium 1.7 mg/dl (1.6-2.3) 03/19/24 04:56
03/17/24
02:37
Wci-T-Gedflbulzcl Pept 3130
LAB Results
03/17/24 03/17/24
12:23 18:37
Troponin I 0.085 H* 0.064 H*
Physical Exam
Constitutional: No acute distress and Comfortable
EENT: Anicteric
Cardiovascular: Rhythm/rate is irregular, Pedal edema present, JVD present and Systolic murmur present
Respiratory: Respiratory effort normal and Lungs clear to auscul.
GI: Soft, Non tender and Normal bowel sounds
Neuro/Psych: Alert, Oriented and AO x 3
Data Reviewed
-
Date of Service: March 20, 2024
Medical Decision Making: Reviewed Test Results and Independent Historian Assessment
EKG: Tracing Personally Visualized and interpreted
Echo: Report Reviewed by me
Labs: Labs Reviewed by me
Old Records: Reviewed
[2024-03-20] MEDS: LASIX IV (09:53)
[2024-03-20] MEDS: COREG PO (09:53)
[2024-03-20 10:05] LABS: Troponin I 0.017 ng/ml
[2024-03-20] MEDS: OMNIPAQUE 50 ML PO (10:13)
[2024-03-20 12:32] LABS: Urine Albumin Trace (Neg - Trace); Urine Bilirubin 1+ (Negative); Urine Character Clear (Clear); Urine Color Yellow; Urine Glucose Negative (Negative); Urine Ketone Negative (Negative); Urine Leukocyte Negative (Negative); Urine Nitrite Negative (Negative); Urine Occult Blood Negative (Negative); Urine Urobilinogen Negative (Neg - 1+)
--- NOTE | 2024-03-20 13:35 | W.PN.UPDATE ---
Update Note
Progress Note Update
CT Scan of A/P-moderate acute diverticulitis of the proximal sigmoid colon. Moderate-sized bowel containing supraumbilical wound and clinical hernia with fluid can be seen developing incarceration or strangulation. Hepatic fatty infiltration
prostatomegaly.
Surgery evaluation
Keep n.p.o.
IV fluids 40 mill per hour while n.p.o.
Antibiotics IV
RN updated
Sister updated.
Pt updated.
--- NOTE | 2024-03-20 13:40 | CON.CRS ---
Consultation
-
Date/Time Consultation Requested: 03/20/24 [id number]
Requesting Provider: Kathie
Performing Provider: Kailey Snow
Reason for Consultation: Diverticulitis, Impending strangulation
Medical History
-
Chief Complaint: suprapubic pain
History of Present Illness:
Mr Saenz is a 59 yo male who presented through the ED 3 days ago with SOB and edema after being off standing cardiac meds for several months due to issues with insurance. He was admitted to the CVICU for management of HFrEF with exacerbation and
arrhythmia management. Since presentation, he developed suprapubic pain and tenderness and is seen today in evaluation for abnormal CT imaging. He denies nausea or vomiting. He has has mild lower abdominal pain currently.
Past Medical History
Past Medical History: Arrhythmias (Afib), CHF (HFrEF), HTN, Psychiatric (anxiety/depression) and Other (nonischemic CM)
Social History
Tobacco: Non-Smoker
Alcohol: None
Family History
Family History: Reviewed & Not Pertinent
Allergies / Home Medications
Allergy/AdvReac Type Severity Reaction Status Date / Time
No Known Allergies Allergy Verified 03/17/24 02:18
�Medication �Instructions �Recorded �Confirmed �Type
No Meds [No Current Medications] 03/19/24 03/19/24 History
Review of Systems
-
History Source: Patient
All other systems: Negative unless noted
A 10 point review of systems was completed, and was negative except as per HPI.
Physical Exam
Vital Signs
Temp 98.7 F 03/20/24 10:50
Pulse 94 03/20/24 11:00
Resp Rate 20 03/20/24 10:50
Blood pressure 122/88 03/20/24 10:51
SaO2 97 03/20/24 10:50
03/19/24 03/20/24 03/21/24
06:59 06:59 06:59
Actual Weight 136.5 kg 135.1 kg
Body Mass Index (BMI) 42.7
Lab Results / Allergies
03/18/24 03:16
03/20/24 04:33
WBC 8.7 10^3/uL (4.8-10.8) 03/18/24 03:16
Hgb 12.6 g/dL (13.0-18.0) L 03/18/24 03:16
Hct 37.1 % (39.0-52.0) L 03/18/24 03:16
Plt Count 251 10^3/uL (130-400) D 03/18/24 03:16
Abs Immat Gran (auto) 0.0 10^3/uL (0-0.05) 03/18/24 03:16
Neutrophils % 74.6 % (42.2-75.2) 03/18/24 03:16
Allergy/AdvReac Type Severity Reaction Status Date / Time
No Known Allergies Allergy Verified 03/17/24 02:18
Physical Exam
General: Well Developed, Well Nourished and No Apparent Distress
Respiratory: Non Labored Respirations
GI: Soft, Tender (mild tenderness suprapubically) and Other (Supraumbilical hernia soft, non-tender, reducible)
Skin: Warm and Dry
Neuro: Awake, Alert and AO x 3
Psych: Calm
Data Reviewed
-
CT Scan: Image Personally Visualized and interpreted, Report Reviewed by me, Discussed with Physician and Discussed with Patient
Labs: Labs Reviewed by me, Discussed with Physician and Discussed with Patient
Old Records: Reviewed
Assessment / Plan
-
Assessment:
59 yo male admitted for AFib/RVR (on Eliquis) with CHF exacerbation who developed abdominal pain today to the lower abdomen near midline.
CT imaging reviewed. Acute sigmoid diverticulitis noted without evidence of perforation or abscess. There is a supraumbilical ventral hernia containing small bowel with associated fluid. PO contrast is seen within the bowel before and after the
hernia. The hernia itself is not strangulated as it is soft/reducible and non tender. Last CBC was on 03/18 with normal WBC count present. He is afebrile, VSS.
Plan:
No emergent surgery planned at this time, manage with supportive measures (bowel rest, abx, analgesics, etc) at this time. Will plan future colonoscopy as an outpatient.
--Continue IV zosyn
--NPO for today
--Analgesics prn
--Trend labs/exams
[2024-03-20] MEDS: D5/0.9% SODIUM CHLORIDE 1000 IV (14:02)
[2024-03-20] MEDS: ZOSYN 50 IV ×2 (14:03→19:51)
--- NOTE | 2024-03-20 14:20 | PTCARENOTE ---
Returned from CT abd/pelvis and head. Assisted to the bathroom, gait steady and feeling better. Dr. Vázquez telephoned the patient in his room and notified him of CT results. Patient is aware of need to stay NPO x meds/ice chips. IV D5NS infusing at
40ml/hr, started on IV zosyn as ordered. Patient seen by colorectal surgery. Sitting oob in the chair now, denies any dizziness at present, call cedeño within reach.
[2024-03-20 16:52] LABS: Hematocrit 38.3 % (39.0-52.0); Hemoglobin 12.8 g/dL (13.0-18.0); Mean Corp Hgb Conc. 33.4 g/dL (33.0-37.0); Mean Corpuscular Hgb 28.3 pg (27.0-31.0); Mean Corpuscular Volume 84.5 fL (80.0-94.0); Platelet Count 250 10^3/uL (130-400); Red Blood Cell Count 4.53 10^6/uL (4.70-6.10)
[2024-03-20] MEDS: FLUSH (NSS) 2 FLUSH IV (19:51)
--- NOTE | 2024-03-20 20:45 | PTCARENOTE ---
Rec'd pt AAOx3 from prev nsg shift. Pt w/no c/o CP. Pt is GAVIN & does c/o 'mild' 3-4/10 bilat lower abd pain. Pt declined anything for pain at this time. Pt's VS stable w/HR in the 90'-100's on RA. Pt in Afib on telemetry monitoring. Pt w/IVF
infusing through patent IV line as ordered. Pt w/no addtl needs at this time & with call cedeño within reach. Plan of care ongoing.
[2024-03-21] VITALS (9 sets, daily range): BP systolic 92–159; BP diastolic 56–133; BMI 42.4
[2024-03-21] MEDS: DILAUDID 0.25 MG IV (02:22)
[2024-03-21] MEDS: ZOSYN 50 IV ×4 (02:23→20:17)
[2024-03-21] MEDS: FLUSH (NSS) 2 FLUSH IV (02:23)
--- NOTE | 2024-03-21 03:17 | PTCARENOTE ---
Pt c/o 7-07/02 lower abd pain w/cramping and worse after having a BM. Spoke w/family practice nurse practitioner hospitalist CLOTHING AND TEXTILES TEACHER & order received for a one time Stat dose of IV Dilaudid. Medication administered as ordered. Shortly after pt's IV line was noted to be leaking IVF.
IV line D/C'd and this RN attempted to place new IV line. Unsuccessful at placing line, so IV team called for pt. Awaiting new IV line placement. Plan of care ongoing.
[2024-03-21 04:57] LABS: Hemoglobin 12.8 g/dL (13.0-18.0); Mean Corp Hgb Conc. 33.7 g/dL (33.0-37.0); Mean Corpuscular Hgb 28.4 pg (27.0-31.0); Mean Corpuscular Volume 84.3 fL (80.0-94.0); Mean Platelet Volume 9.3 fL (7.4-10.4); Platelet Count 275 10^3/uL (130-400); Red Blood Cell Count 4.51 10^6/uL (4.70-6.10); Red Cell Dist. Width 14.2 % (11.5-14.5); White Blood Cell Count 12.8 10^3/uL (4.8-10.8)
[2024-03-21 05:28] LABS: Blood Urea Nitrogen 23 mg/dl (9-20); Calcium 8.9 mg/dl (8.4-10.2); Carbon Dioxide 25 mmol/L (22-30); Chloride 101 mmol/L (98-107); Estimated Creatinine Clearance 89 ml/min; Glucose 108 mg/dl (70-99); Potassium 4.2 mmol/L (3.5-5.1); Sodium 132 mmol/L (135-145); eGFR > 60.00
[2024-03-21] MEDS: DILAUDID 0.5 MG IV ×2 (08:02→20:24)
[2024-03-21] MEDS: ELIQUIS 5 MG PO ×2 (08:03→20:16)
[2024-03-21] MEDS: FLUSH (NSS) 1 FLUSH IV (08:03)
--- NOTE | 2024-03-21 08:29 | W.PN.CD ---
Today's Communication / Plan
-
Stop IV Lasix, move to PO
Next few days add GDMT for HFrEF
May need metorpolol ER for more HR control vs coreg
Impression / Plan
-
Acute diverticulitis
- On IV ATBs, surgery involved
Jdyex-hm-atglief HFrEF with a nonischemic cardiomyopathy
- Improved
- Move to PO Lasix
- Add GDMT, cost good [place] => may wait for acute diverticulitis to improve (HF BB, ARNI (or other RAAS), MRA, SGLT-inhibitor)
- HF education. Na+/Fluid restriction
- rate control AFib
HTN, better
AFIB with RVR, unknown duration, unknown pattern, he has had prior cardioversion
-Rate faster with med hold and diverticulitis
-Eliquis resumed for his [id number] score of 2 (HTN, HF)
-Reviewed modifiable risk factors: ETOH, BMI, Exercise, Sleep apnea (if present)
-Reasonable to consider ablation if he follows up with us.
Abnormal troponin, peak 0.068 => most c/w acute non-ischemic myocardial injury from HTN, tachycardia, and HF exacerbation
Subjective:
Has abdominal pain
Data:
-Echo 03/17/2024: LVEF 40% -possible tachycardia induced cardiomyopathy
-BNP(3130) when compensated pBNP 716 /CXR and symptoms consistent with CHF
-prior EF 45-50%
-Echo 03/17/2024: LVEF 40%, LA normal, mild TR, nml est PASP/RA
-No cad cath 2021)
Physical Exam
Vital Signs/Labs
Vital Signs
Temp Pulse Resp BP Pulse Ox
98.3 F 100 20 130/94 98
03/21/24 07:54 03/21/24 07:34 03/21/24 07:54 03/21/24 07:34 03/21/24 07:54
03/20/24 03/21/24 03/22/24
06:59 06:59 06:59
Actual Weight 135.1 kg 134.1 kg
03/21/24 04:31
03/21/24 04:31
Magnesium 1.7 mg/dl (1.6-2.3) 03/19/24 04:56
03/17/24
02:37
Kky-V-Vtyghgwxnsz Pept 3130
LAB Results
03/20/24 03/20/24
09:30 15:30
Troponin I 0.017 Cancelled
Physical Exam
Constitutional: No acute distress
EENT: Anicteric
Cardiovascular: Rhythm/rate is irregular
GI: Soft
Neuro/Psych: AO x 3
Data Reviewed
-
Date of Service: March 21, 2024
--- NOTE | 2024-03-21 09:27 | W.PN.CRS1 ---
Today's Communication / Plan
-
no plans for surgery at this time
advance to clears later today if nausea resolves
Assessment/Plan
-
Assessment:
59 yo male admitted for AFib/RVR (on Eliquis) with CHF exacerbation who developed abdominal pain today to the lower abdomen near midline.
Plan:
1. Afebrile, tachy 92-112, monitor.
2. WBC trending down, 12.8 from 13.0. Continue to trend.
3. Continue IV Zosyn.
4. No plans for surgery regarding the supraumbilical ventral hernia.
5. On Eliquis per primary team.
6. Will need an eventual colonoscopy as an outpatient.
7. Advance to clear liquid diet later today if nausea resolves.
8. No plans for surgery at this time. If he worsens, if will require a colectomy with possible colostomy creation. If signs of worsening, please hold Eliquis.
Subjective Data
Subjective Data
Date of Service: March 21, 2024
Patient states he feels 'better than last night'. He has crampy abdominal pain. He is having loose bowel movements. He feels a little naseous this morning.
Objective Data
-
Vital Signs
Temp Pulse Resp BP Pulse Ox
98.3 F 100 20 130/94 98
03/21/24 07:54 03/21/24 07:34 03/21/24 07:54 03/21/24 07:34 03/21/24 07:54
Intake & Output
03/20/24 03/21/24 03/22/24
06:59 06:59 06:59
Intake Total 1140 / 1140 2059
Output Total 1850 / 1850 900 / 900
Balance -710 / -710 1160 / 1160
Intake:
Oral fluids 1140 / 1140 1080 / 1080
IV fluids (Total) 930 / 930
D5/0.9% Sodium Chloride 1,000 680 / 680
ml @ 40 mls/hr IV .Q24H [facility] Rx#
:[id number]
NSS 250 / 250
IV piggybacks 50 / 50
Output:
Urine, Voided 1850 / 1850 900 / 900
Other:
Number of approximated MODERATE 2
amounts of urine
Number of approximated LARGE 3
amounts of urine
Lab Results
03/21/24 04:31
03/21/24 04:31
Physical Exam
-
General: No Acute Distress and AOx3
Abdomen: Soft, Non Distended and Tender (LLQ- mild, hernia soft/non-tender and reducible)
Skin: Warm and Dry
--- NOTE | 2024-03-21 09:34 | PTCARENOTE ---
Received patient this morning resting in bed. Complaining of 7/10 lower abdominal pain/cramps. Remains NPO x meds/ice chips. Medicated with IV dilaudid for severe pain as ordered with relief.
[2024-03-21] MEDS: COREG 25 MG PO ×2 (10:13→20:17)
[2024-03-21 12:01] LABS: NT-proBNP 1870 pg/ml
--- NOTE | 2024-03-21 12:17 | CM ---
Chart reviewed. Patient is independent of ADLS, rents a room in a split level , 7 ROSALIA, 0 DME. Patient currently with no discharge needs. CM to follow
--- NOTE | 2024-03-21 13:35 | W.PN.HOSP.TC ---
Addendum entered and electronically signed by Abelino Velasco MD 03/21/24 16:07:
Patient seen and examined
Discussed with resident.
Impression/plan:
Acute CHF reduced EF, likely exacerbated with A-fib rate.
Responding to diuresis
Lasix transition to oral.
Monitor volume status closely
Monitor renal function.
Paroxysmal atrial fibrillation with RVR on admission.
Rate controlled transition back to Coreg.
Continue anticoagulation with Eliquis.
Sigmoid diverticulitis, not complicated. First episode. Patient with no prior history of colonoscopy.
IV antibiotics.
Diet has been advanced to clears
Currently no indication for surgical intervention. Colorectal surgery input appreciated.
Physical therapy assessment
Discharge planning.
Original Note:
Today's Communication/Plan
-
Continue IV zosyn
advance to full liquids if continued improvement tomorrow
Continue PO lasix, coreg
Assessment / Plan
Assessment / Plan
IMPRESSION: This is a 59-year-old male past medical history of paroxysmal atrial fibrillation, nonischemic cardiomyopathy, hypertension, anxiety/depression, presenting with progressive shortness of breath over the past few days particularly at night
and when he lies down flat and with exertion.
PLAN:
#Chronic atrial fibrillation with rapid ventricular response
-Rates are controlled with Coreg 25 twice daily
-Anticoagulation with Eliquis
#Acute CHF reduced EF
-Acute pulmonary edema secondary to CHF
-Nonischemic cardiomyopathy.
-Echo 03/17: LVEF 40% with no significant change from prior study
-Suspect decompensated in the settings of rapid ventricular rate.
-Chest x-ray with pulmonary edema upon presentation
-Improved and responding to diuresis. Weight reduced to 134kg (on admission was 141kg)
-Improved hypoxia
-Transitioned to PO lasix
-ADRIENNE inhibitor eventually
# Sigmoid Diverticulosis
-patient had felt dizzy with lower abdominal pain
-EKG ordered and reviewed atrial fibrillation no ST-T changes noted in terms of ischemia, Troponin normal
-Head CT as the patient is on Eliquis
-250 mL of IV fluids given
-CT abdomen/pelvis: moderate acute diverticulitis of the proximal sigmoid colon, Hepatic fatty infiltration
-colorectal surgery consulted
-patient on clear liquids, IVF
-if continuing to improve, advance to full liquids tomorrow
-WBC trending down
-continue IV zosyn
-Troponin normal
-monitor CBC
# Mild hyponatremia secondary to fluid overload
-monitor bmp
#MIRALCE secondary to diuresis
-Creatatinine stable, 1.2 today
-continue lasix PO
#Essential hypertension
-Continue Coreg
# Elevated transaminases
-getting better likely secondary to hepatic congestion
DVT: Eliquis
Code: Full
Anticipated Discharge: 24 - 48 hours
Subjective/Interval History
-
Date of Service: March 21, 2024
Objective Data
-
Labs:
Laboratory Results
03/21/24
04:31
WBC 12.8 H
Hgb 12.8 L
Hct 38.0 L
Plt Count 275
Sodium 132 L
Potassium 4.2
Chloride 101
Carbon Dioxide 25
BUN 23 H
Creatinine 1.2
Glucose 108 H
Calcium 8.9
Vital Signs:
Vital Signs
Temp Pulse Resp BP Pulse Ox
98.8 F 83 20 114/83 95
03/21/24 10:56 03/21/24 12:00 03/21/24 10:56 03/21/24 10:54 03/21/24 10:56
I&O
03/20/24 03/21/24 03/22/24
06:59 06:59 06:59
Intake Total 1140 / 1140 2059 2059 250 / 250
Output Total 1849 900 / 900 100 / 100
Balance -710 / -710 1160 / 1160 150 / 150
Review of Systems
-
History Source: Patient
All other systems: Reviewed and negative
Physical Exam
-
General: Well Developed and No Apparent Distress
HEENT: Normocephalic, Atraumatic and Moist Mucous Membranes
Respiratory: Clear to Auscultation
Cardiac: Regular Rhythm and S1/S2; Negative Murmur, Rub or Gallop
GI: Soft, Nondistended, Normal Bowel Sounds and Tender (mild lower abdomen tenderness); Negative Organomegaly
Rectal: Deferred by Provider
Musculoskeletal: No Clubbing, No Cyanosis and No Edema
Skin: Negative Rash
Neuro: Nonfocal/Grossly Intact
--- NOTE | 2024-03-21 15:12 | PTCARENOTE ---
Patient denies any nausea, advanced to clears but taking minimal. Tolerated some water ice and small amount of ice tea. Having hyperactive bowel sounds and in the bathroom several times passing loose stool.
--- NOTE | 2024-03-21 17:22 | PTCARENOTE ---
Patient downgraded to telemetry level of care. Report called to Kely, for transfer to room 416-2.
--- NOTE | 2024-03-21 17:29 | PTCARENOTE ---
Patient transferred via stretcher to room 416-2 with his belongings.
--- NOTE | 2024-03-21 17:47 | PTCARENOTE ---
Received patient to 415-2 at 1745 awake alert and oriented. Oriented to unit. Able to make his needs known. Calling family to let them know of his room change. Call cedeño in reach.
--- NOTE | 2024-03-22 01:36 | PTCARENOTE ---
23:08 VS: BP 92/56, HR 83, Temp 98.1, Resp Rate 18, O2 95 on RA. AAXO3. Pt denies lightheadedness, dizziness, SOB, difficulty breathing, and chest pain. Pt stated 'I feel fine.' Pt instructed to use urinal. Urinal at bedside. Notified ABBEY Pealr
Marya. No new orders at this time. Plan of care ongoing.
[2024-03-22] MEDS: ZOSYN 50 IV ×2 (02:08→08:36)
[2024-03-22 02:20] VITALS: BP 125/85
[2024-03-22 06:00] VITALS: BMI 42.2
[2024-03-22 07:00] VITALS: BP 124/88
[2024-03-22 07:23] LABS: % Basophils 0.5 % (0-2); % Eosinophils 1.7 % (0-6); % Immature Granulocytes 0.4 % (0-0.5); % Lymphocytes 14.2 % (20.5-51.1); % Monocytes 7.8 % (1.7-9.3); % Neutrophils 75.4 % (42.2-75.2); Absolute Eosinophils 0.1 10^3/uL (0-0.7); Absolute Lymphocytes 1.1 10^3/uL (1.2-3.4); Absolute Monocytes 0.6 10^3/uL (0.1-0.6); Absolute Neutrophils 5.7 10^3/uL (1.4-6.5); Hematocrit 37.7 % (39.0-52.0); Hemoglobin 12.4 g/dL (13.0-18.0); Mean Corp Hgb Conc. 32.9 g/dL (33.0-37.0); Mean Corpuscular Hgb 28.4 pg (27.0-31.0); Mean Corpuscular Volume 86.3 fL (80.0-94.0); Mean Platelet Volume 9.5 fL (7.4-10.4); Nucleated Red Blood Cells % 0 % (-); Platelet Count 250 10^3/uL (130-400); Red Blood Cell Count 4.37 10^6/uL (4.70-6.10); Red Cell Dist. Width 14.1 % (11.5-14.5); White Blood Cell Count 7.6 10^3/uL (4.8-10.8)
[2024-03-22 08:15] LABS: Blood Urea Nitrogen 20 mg/dl (9-20); Calcium 8.8 mg/dl (8.4-10.2); Carbon Dioxide 22 mmol/L (22-30); Chloride 101 mmol/L (98-107); Estimated Creatinine Clearance 76 ml/min; Glucose 124 mg/dl (70-99); Potassium 3.9 mmol/L (3.5-5.1); Sodium 133 mmol/L (135-145); eGFR 57.18
[2024-03-22] MEDS: LASIX 40 MG PO (08:36)
[2024-03-22] MEDS: ELIQUIS 5 MG PO ×2 (08:36→20:00)
[2024-03-22] MEDS: COREG 25 MG PO (08:36)
--- NOTE | 2024-03-22 08:39 | W.PN.HOSP.TC ---
Addendum entered and electronically signed by Abelino Velasco MD 03/22/24 14:44:
Patient seen and examined.
Discussed with resident and cardiology.
Impression/plan:
Chronic atrial fibrillation with rapid ventricular response
Rate control remains suboptimal.
Transition from Coreg to Toprol.
Continue anticoagulation with Eliquis
Acute CHF reduced EF.
Likely decompensated in the settings of rapid ventricular rate and noncompliance with diuretics.
Transition to oral Lasix.
Stable respiratory status.
Consult case management for insurance coverage.
Acute sigmoid diverticulitis with no complications.
First episode.
Abdominal pain and tenderness improving
Diet has been advanced to full liquids to low residue likely today.
Narrow antibiotics to Unasyn with plan to transition to Augmentin to complete 10-day course of treatment.
Outpatient colorectal surgery follow-up and colonoscopy required.
Original Note:
Today's Communication/Plan
-
Farxiga added, discontinued Coreg and transition to Toprol-XL as per cardiology
Diet advanced to low residue
Monitor BMP, CBC
Assessment / Plan
Assessment / Plan
IMPRESSION: This is a 59-year-old male past medical history of paroxysmal atrial fibrillation, nonischemic cardiomyopathy, hypertension, anxiety/depression, presenting with progressive shortness of breath over the past few days particularly at night
and when he lies down flat and with exertion.
PLAN:
#Chronic atrial fibrillation with rapid ventricular response
-Rates uncontrolled on Coreg, changed to Toprol 75 Mg as per cardiology
-Anticoagulation with Eliquis
#Acute CHF reduced EF
-Acute pulmonary edema secondary to CHF
-Nonischemic cardiomyopathy.
-Echo 03/17: LVEF 40% with no significant change from prior study
-Suspect decompensated in the settings of rapid ventricular rate.
-Chest x-ray with pulmonary edema upon presentation
-Improved and responding to diuresis. Weight reduced to 133kg (on admission was 141kg)
-Improved hypoxia
-Continue PO lasix
-Farxiga started as per cardiology
# Sigmoid Diverticulosis
-patient had felt dizzy with lower abdominal pain
-EKG ordered and reviewed atrial fibrillation no ST-T changes noted in terms of ischemia, Troponin normal
-CT abdomen/pelvis: moderate acute diverticulitis of the proximal sigmoid colon, Hepatic fatty infiltration
-colorectal surgery consulted
-WBC trending down
-continue IV zosyn, transition to Augmentin upon discharge
-Troponin normal
-Diet advanced to low residue
-monitor CBC, bmp in AM
# Mild hyponatremia secondary to fluid overload
-Sodium 133 today
-monitor bmp
#MIRACLE secondary to diuresis
-Creatinine stable, 1.4 today
-continue lasix PO
#Essential hypertension
-Started metoprolol xl
DVT: Eliquis
Code: Full
Anticipated Discharge: 24 - 48 hours
Subjective/Interval History
-
Date of Service: March 22, 2024
Objective Data
-
Labs:
Laboratory Results
03/22/24 03/22/24
06:30 07:00
WBC 7.6
Hgb 12.4 L
Hct 37.7 L
Plt Count 250
Sodium 133 L Cancelled
Potassium 3.9 Cancelled
Chloride 101 Cancelled
Carbon Dioxide 22 Cancelled
BUN 20 Cancelled
Creatinine 1.4 H Cancelled
Glucose 124 H Cancelled
Calcium 8.8 Cancelled
Vital Signs:
Vital Signs
Temp Pulse Resp BP Pulse Ox
98.1 F 90 18 125/85 95
03/21/24 23:08 03/22/24 02:20 03/21/24 23:08 03/22/24 02:20 03/22/24 02:20
I&O
03/21/24 03/22/24 03/23/24
06:59 06:59 06:59
Intake Total 2059 1050 / 1050
Output Total 900 / 900 100 / 100
Balance 1160 / 1160 950 / 950
Review of Systems
-
History Source: Patient
All other systems: Reviewed and negative
Physical Exam
-
General: Well Developed and No Apparent Distress
HEENT: Normocephalic, Atraumatic and Moist Mucous Membranes
Respiratory: Clear to Auscultation
Cardiac: Regular Rhythm and S1/S2; Negative Murmur, Rub or Gallop
GI: Soft, Nondistended, Normal Bowel Sounds and Tender (mild lower abdomen tenderness); Negative Organomegaly
Rectal: Deferred by Provider
Musculoskeletal: No Clubbing, No Cyanosis and No Edema
Skin: Negative Rash
Neuro: Nonfocal/Grossly Intact
--- NOTE | 2024-03-22 09:24 | W.PN.CRS1 ---
Addendum entered and electronically signed by Lucas Ortega MD 03/22/24 12:57:
I saw and examined the patient.
The PA's note was reviewed and I agree with the note.
Comment:
Patient seen in a.m. with PA.
Minimal discomfort. Tolerating clears.
Vitals reasonable. White count 7.6.
Abdominal exam reveals only mild left lower quadrant tenderness.
Advance diet as tolerated to goal diet of low residue.
Original Note:
Today's Communication / Plan
-
full liquids, okay to advance to low residue if tolerates
Assessment/Plan
-
Assessment:
59 yo male admitted for AFib/RVR (on Eliquis) with CHF exacerbation who developed abdominal pain today to the lower abdomen near midline.
Plan:
1. Afebrile, tachycardia resolved.
2. WBC now normalized, 7.6,
3. Continue IV Zosyn.
4. No plans for surgery regarding the supraumbilical ventral hernia.
5. On Eliquis per primary team.
6. Will need an eventual colonoscopy as an outpatient.
7. Advance to full liquids. Okay for low residue later today if tolerates fulls.
8. No plans for surgery at this time. If he worsens, if will require a colectomy with possible colostomy creation. If signs of worsening, please hold Eliquis.
Subjective Data
Subjective Data
Date of Service: March 22, 2024
Patient states he has less pain today. He is overall feeling much better. He denies nausea or vomiting. He tolerated clears.
Objective Data
-
Vital Signs
Temp Pulse Resp BP Pulse Ox
98.0 F 92 18 124/88 97
03/22/24 07:00 03/22/24 07:00 03/22/24 07:00 03/22/24 07:00 03/22/24 07:00
Intake & Output
03/21/24 03/22/24 03/23/24
06:59 06:59 06:59
Intake Total 2060 / 2060 1050 / 1050
Output Total 900 / 900 100 / 100
Balance 1160 / 1160 950 / 950
Intake:
Oral fluids 1080 / 1080 600 / 600
IV fluids (Total) 930 / 930 250 / 250
D5/0.9% Sodium Chloride 1,000 680 / 680 200 / 200
ml @ 40 mls/hr IV .Q24H [facility] Rx#
:[id number]
NSS 250 / 250
IV piggybacks 50 / 50 200 / 200
Output:
Urine, Voided 900 / 900 100 / 100
Other:
Number of approximated MODERATE 2 3
amounts of urine
Lab Results
03/22/24 06:30
03/22/24 07:00
Physical Exam
-
General: No Acute Distress and AOx3
Abdomen: Soft, Non Distended and Tender (mild LLQ)
Skin: Warm and Dry
--- NOTE | 2024-03-22 10:00 | W.PN.CD ---
Today's Communication / Plan
-
Add Farxiga
Move to Toprol 75 bid
Outpt add ARNI and MRA
Continue PO Lasix one time daily and Eliquis 5 bid
Impression / Plan
-
Acute diverticulitis
- On IV ATBs, surgery involved
Bffbf-pd-shiuklm HFrEF with a nonischemic cardiomyopathy
- Improved
- PO Lasix, BB, will add SGLT inhibiot
- As outpatient will plan to add ARNI and aldactone
- HF education. Na+/Fluid restriction
- rate control AFib
HTN, better
AFIB with RVR, unknown duration, unknown pattern, he has had prior cardioversion
-Rate: not good enough on coreg 25 bid, will move to Toprol 75 bid (not could go to Coreg 50 bid given his weight)
-Eliquis resumed for his [id number] score of 2 (HTN, HF)
-Reviewed modifiable risk factors: ETOH, BMI, Exercise, Sleep apnea (if present)
-Reasonable to consider ablation if he follows up with us.
Abnormal troponin, peak 0.068 => most c/w acute non-ischemic myocardial injury from HTN, tachycardia, and HF exacerbation
Subjective:
Feeling better
Data:
-Echo 03/17/2024: LVEF 40% -possible tachycardia induced cardiomyopathy
-BNP(3130) when compensated pBNP 716 /CXR and symptoms consistent with CHF
-prior EF 45-50%
-Echo 03/17/2024: LVEF 40%, LA normal, mild TR, nml est PASP/RA
-No cad cath 2021)
Physical Exam
Vital Signs/Labs
Vital Signs
Temp Pulse Resp BP Pulse Ox
98.0 F 92 18 124/88 97
03/22/24 07:00 03/22/24 07:00 03/22/24 07:00 03/22/24 07:00 03/22/24 07:00
03/21/24 03/22/24 03/23/24
06:59 06:59 06:59
Actual Weight 134.1 kg
03/22/24 06:30
03/22/24 07:00
Magnesium 1.7 mg/dl (1.6-2.3) 03/19/24 04:56
03/17/24 03/21/24
02:37 04:31
Pkf-O-Qablqnmykjq Pept 3340 1150
LAB Results
03/20/24 03/20/24
09:30 15:30
Troponin I 0.017 Cancelled
Physical Exam
Constitutional: No acute distress
Cardiovascular: Rhythm/rate is irregular
Respiratory: Respiratory effort normal and Lungs clear to auscul.
GI: Soft
Data Reviewed
-
Date of Service: March 22, 2024
--- NOTE | 2024-03-22 10:29 | W.DCSUMMARY ---
Documented by User: Crystal Carrasquillo, Resident, 03/23/24 11:47
Discharge Summary
Discharge Data
Date of Admission: 03/17/24
Date of Discharge: 03/23/24
-
Pending Results: No
Hospital Course
This is a 59-year-old male with past medical history of paroxysmal atrial fibrillation, nonischemic cardiomyopathy, hypertension, anxiety/depression, presenting with progressive shortness of breath over the past few days particularly at night and
when he lies down flat and with exertion. He was admitted, chest x-ray showed pulmonary edema cardiology was consulted. IV Cardizem started and continued prior to admission Eliquis.Cardiac BNP 3100, IV Lasix initiated. Continue to his prior to
admission Coreg and amlodipine for his hypertension.There was nonischemic myocardial injury with troponin at 0.05. His echo on 03/17 showed LVEF 40% with no significant change from prior study. Patient was improving and responding to IV diuresis and
had weight reduction. Coreg and IV Lasix held when patient's blood pressure was borderline. He then complained of lower abdominal pain and CT abdomen showed moderate acute diverticulitis of the proximal sigmoid colon. Patient was kept n.p.o. and
IV fluids were started along with initiating IV Zosyn. Surgery was consulted and no acute surgical intervention needed at the time. As patient improved his diet was advanced to clear liquids. He was transitioned to p.o. Lasix. Due to his A-fib
rate control being suboptimal he was transitioned from Coreg to Toprol-XL, he was also started on Farxiga. Patient is to be discharged home with antibiotic course of Augmentin to be continued for 5 more days along with new meds of Toprol XL,
Farxiga, Eliquis, and Lasix. He is to follow-up in outpatient with colorectal surgery for colonoscopy and cardiology.
Discharge Plan
-
Patient Disposition: Home (Routine Discharge)
Discharge Diagnosis/Procedures: CHFrEF/Paroxysmal Atrial Fibrillation/Sigmoid Diverticulitis
Diet: Low Sodium and Low Residue
Activity: As tolerated
Blood Work: BMP in one 1 week
Activity Restrictions/Additional Instructions:
We recommend that you get a sleep study as outpatient. Follow-up with lung doctor for that
Instructions: *PCP/Other Supervisor Records Change Heart Failure Instructions
Referrals:
Jeffy Mohamud MD [Active] - in one week
Michael Singh MD [Active] -
NONE,* [Family Provider] -
Mark Snow MD [Active] - in four to six weeks (You will need an eventual colonoscopy. )
Prescriptions:
New
dapagliflozin propanediol 10 mg Tablet
10 mg PO DAILY Qty: 30 0RF
Eliquis 5 mg Tablet
5 mg PO BID 30 Days Qty: 60 0RF
furosemide 40 mg Tablet
40 mg PO DAILY 30 Days Qty: 30 0RF
metoprolol succinate 50 mg Tablet Extended Release 24 Hr
75 mg PO BID 30 Days Qty: 90 0RF
amoxicillin-pot clavulanate 875-125 mg tablet
1 tab PO Q12H 5 Days Qty: 10 0RF
Discharge Orders:
Discharge Patient (As Directed); Ordered 03/23/24
Ordered By: Crystal Carrasquillo
Care Plan Goals
Care Plan Goals:
Problem: Readiness for enhanced knowledge related to diagnosis and treatment plan
Goal: Understand your diagnosis and treatment plan needs, including medications if applicable.
Instructions: Know your diagnosis, underlying causes and treatment plan options, including medications if applicable. Consult with your health care team to learn about your diagnosis and treatment plan, including medications if applicable.
Discharge Date and Time
Discharge Date/Time: 03/23/24 12:56
Print Language: CROATIAN

Documented by User: Abelino Velasco MD 03/23/24 13:40
Discharge Summary
Discharge Data
Date of Admission: 03/17/24
Date of Discharge: 03/23/24
Discharge Plan
-
Patient Disposition: Home (Routine Discharge)
Discharge Diagnosis/Procedures: CHFrEF/Paroxysmal Atrial Fibrillation/Sigmoid Diverticulitis
Diet: Low Sodium and Low Residue
Activity: As tolerated
Blood Work: BMP in one 1 week
Activity Restrictions/Additional Instructions:
We recommend that you get a sleep study as outpatient. Follow-up with lung doctor for that
Instructions: *PCP/Other Supervisor Records Change Heart Failure Instructions
Referrals:
Jeffy Mohamud MD [Active] - in one week
Michael Singh MD [Active] -
NONE,* [Family Provider] -
Mark Snow MD [Active] - in four to six weeks (You will need an eventual colonoscopy. )
Prescriptions:
New
dapagliflozin propanediol 10 mg Tablet
10 mg PO DAILY Qty: 30 0RF
Eliquis 5 mg Tablet
5 mg PO BID 30 Days Qty: 60 0RF
furosemide 40 mg Tablet
40 mg PO DAILY 30 Days Qty: 30 0RF
metoprolol succinate 50 mg Tablet Extended Release 24 Hr
75 mg PO BID 30 Days Qty: 90 0RF
amoxicillin-pot clavulanate 875-125 mg tablet
1 tab PO Q12H 5 Days Qty: 10 0RF
Discharge Orders:
Discharge Patient (As Directed); Ordered 03/23/24
Ordered By: Crystal Carrasquillo
Care Plan Goals
Care Plan Goals:
Problem: Readiness for enhanced knowledge related to diagnosis and treatment plan
Goal: Understand your diagnosis and treatment plan needs, including medications if applicable.
Instructions: Know your diagnosis, underlying causes and treatment plan options, including medications if applicable. Consult with your health care team to learn about your diagnosis and treatment plan, including medications if applicable.
Discharge Date and Time
Discharge Date/Time: 03/23/24 12:56
Print Language: CROATIAN
[2024-03-22 11:00] VITALS: BP 121/90
[2024-03-22] MEDS: FARXIGA 10 MG PO (12:13)
[2024-03-22] MEDS: UNASYN IV ×3 (12:27→23:05)
--- NOTE | 2024-03-22 14:27 | CM ---
Patient seen bedside, reports no needs to CM at this time. CM checked cost of Eliquis, no copay, Farxiga showing as non reimbursed. CM called patients pharmacy to check cost of Farxiga, per pharmacist, unable to provide cost unless script sent to
pharmacy. TT sent to Hospitalist with update. CM will continue to follow for discharge planning needs.
Plan; home no needs when stable.
[2024-03-22 15:00] VITALS: BP 150/90
[2024-03-22] MEDS: TOPROL XL 75 MG PO (20:00)
[2024-03-22 20:10] VITALS: BP 124/58
[2024-03-22 23:34] VITALS: BP 122/88
[2024-03-23 03:32] VITALS: BP 148/93
[2024-03-23] MEDS: UNASYN IV ×2 (05:13→11:20)
[2024-03-23 05:31] VITALS: BMI 42.5
[2024-03-23 07:39] VITALS: BP 138/99
[2024-03-23] MEDS: LASIX 40 MG PO (08:20)
[2024-03-23] MEDS: FARXIGA 10 MG PO (08:21)
[2024-03-23] MEDS: ELIQUIS 5 MG PO (08:21)
[2024-03-23] MEDS: TOPROL XL 75 MG PO (08:22)
--- NOTE | 2024-03-23 08:22 | W.PN.HOSP.TC ---
Addendum entered and electronically signed by Abelino Velasco MD 03/23/24 13:44:
Patient seen and examined.
Discussed with resident, cardiology
Impression/plan:
Acute CHF reduced EF.
Paroxysmal atrial fibrillation with rapid ventricular response.
Improved with diuresis and rate control.
Regimen changed from Coreg to Toprol.
Continue oral Lasix.
Addition of Farxiga.
Follow-up with cardiology within 1 week
Follow-up with BMP
Adjust cardiovascular/CHF regimen accordingly as outpatient
Left-sided uncomplicated diverticulitis.
Pain improved.
Diet has been advanced
Complete total of 10-day course of therapy of antibiotics as outpatient
Follow-up with colorectal surgery pain
Discharge planing.
Original Note:
Today's Communication/Plan
-
Discharge pending for today with antibiotic course of Augmentin
Continue Lasix p.o., Farxiga, Toprol-XL
Assessment / Plan
Assessment / Plan
IMPRESSION: This is a 59-year-old male past medical history of paroxysmal atrial fibrillation, nonischemic cardiomyopathy, hypertension, anxiety/depression, presenting with progressive shortness of breath over the past few days particularly at night
and when he lies down flat and with exertion.
PLAN:
#Chronic atrial fibrillation with rapid ventricular response
-Rates uncontrolled on Coreg, changed to Toprol 75 Mg as per cardiology
-Anticoagulation with Eliquis
#Acute CHF reduced EF
-Acute pulmonary edema secondary to CHF
-Nonischemic cardiomyopathy.
-Echo 03/17: LVEF 40% with no significant change from prior study
-Suspect decompensated in the settings of rapid ventricular rate.
-Chest x-ray with pulmonary edema upon presentation
-Improved and responding to diuresis. Weight reduced to 134kg (on admission was 141kg)
-Improved hypoxia
-Continue PO lasix
-Continue Faxiga
-Discharge pending for today
# Sigmoid Diverticulosis
-patient had felt dizzy with lower abdominal pain initially
-EKG ordered and reviewed atrial fibrillation no ST-T changes noted in terms of ischemia, Troponin normal
-CT abdomen/pelvis: moderate acute diverticulitis of the proximal sigmoid colon, Hepatic fatty infiltration
-colorectal surgery consulted
-WBC trending down
-continue IV zosyn, transition to Augmentin upon discharge
-Troponin normal
-Diet advanced to low residue
�Has been improving
-Discharge pending for today with Augmentin course
-monitor CBC, bmp in AM
# Mild hyponatremia secondary to fluid overload
-Sodium 134 today
-monitor bmp
#MIRACLE secondary to diuresis
-Creatinine stable, 1.2 today
-continue lasix PO
#Essential hypertension
-Continue metoprolol xl
DVT: Eliquis
Code: Full
Anticipated Discharge: Within 24 hours
Subjective/Interval History
-
Date of Service: March 23, 2024
Patient states he feels much better.
Objective Data
-
Labs:
Laboratory Results
03/23/24 03/23/24
07:00 07:45
WBC Pending
Hgb Pending
Hct Pending
Plt Count Pending
Sodium Cancelled Pending
Potassium Cancelled Pending
Chloride Cancelled Pending
Carbon Dioxide Cancelled Pending
BUN Cancelled Pending
Creatinine Cancelled Pending
Glucose Cancelled Pending
Calcium Cancelled Pending
Vital Signs:
Vital Signs
Temp Pulse Resp BP Pulse Ox
98.4 F 74 16 138/99 97
03/23/24 07:39 03/23/24 07:39 03/23/24 07:39 03/23/24 07:39 03/23/24 07:39
I&O
03/22/24 03/23/24 03/24/24
06:59 06:59 06:59
Intake Total 1050 / 1050 1570 / 1570
Output Total 100 / 100 700 / 700
Balance 950 / 950 870 / 870
Review of Systems
-
History Source: Patient
All other systems: Reviewed and negative
Physical Exam
-
General: Well Developed and No Apparent Distress
HEENT: Normocephalic, Atraumatic and Moist Mucous Membranes
Respiratory: Clear to Auscultation
Cardiac: Regular Rhythm and S1/S2; Negative Murmur, Rub or Gallop
GI: Soft, Nondistended and Normal Bowel Sounds
Rectal: Deferred by Provider
Musculoskeletal: No Clubbing, No Cyanosis and No Edema
Skin: Negative Rash
Neuro: Nonfocal/Grossly Intact
Psych: Calm
[2024-03-23 08:32] LABS: % Basophils 0.9 % (0-2); % Immature Granulocytes 0.3 % (0-0.5); % Lymphocytes 21.4 % (20.5-51.1); % Monocytes 8.7 % (1.7-9.3); % Neutrophils 66.7 % (42.2-75.2); Absolute Basophils 0.1 10^3/uL (0-0.2); Absolute Eosinophils 0.1 10^3/uL (0-0.7); Absolute Lymphocytes 1.5 10^3/uL (1.2-3.4); Absolute Monocytes 0.6 10^3/uL (0.1-0.6); Absolute Neutrophils 4.6 10^3/uL (1.4-6.5); Hematocrit 40.4 % (39.0-52.0); Mean Corp Hgb Conc. 32.2 g/dL (33.0-37.0); Mean Corpuscular Hgb 28.1 pg (27.0-31.0); Mean Corpuscular Volume 87.3 fL (80.0-94.0); Mean Platelet Volume 9.6 fL (7.4-10.4); Nucleated Red Blood Cells % 0 % (-); Platelet Count 298 10^3/uL (130-400); Red Blood Cell Count 4.63 10^6/uL (4.70-6.10); Red Cell Dist. Width 13.8 % (11.5-14.5); White Blood Cell Count 6.9 10^3/uL (4.8-10.8)
[2024-03-23 09:10] LABS: Blood Urea Nitrogen 18 mg/dl (9-20); Calcium 9.2 mg/dl (8.4-10.2); Carbon Dioxide 19 mmol/L (22-30); Chloride 105 mmol/L (98-107); Estimated Creatinine Clearance 89 ml/min; Glucose 99 mg/dl (70-99); Potassium 4.6 mmol/L (3.5-5.1); Sodium 134 mmol/L (135-145); eGFR > 60.00
--- NOTE | 2024-03-23 09:38 | W.PN.CD ---
Today's Communication / Plan
-
Continue current cardiac meds at discharge:
Farxiga 10 a day
Metoprolol ER (succinate) 75 bid
Eliquis 5 bid
Furosemide 40 one time daily
As an outpatient anticipate adding ARNI (Entresto or other RAAS) and MRA (spironolactone or eplerenone)
Followup with us in 1 week (office will reach out)
Consideration for AFib ablation but unknown duration of AFib may make permanent afib likely... at his age worth trying 1-2 ablations
Cardiology will sign off. Please call with questions
Impression / Plan
-
Acute diverticulitis
- On IV ATBs, surgery involved
Ssyhj-ym-lsrhxuo HFrEF with a nonischemic cardiomyopathy
- Improved
- PO Lasix, BB, will add SGLT inhibiot
- As outpatient will plan to add ARNI and aldactone
- HF education. Na+/Fluid restriction
- rate control AFib
HTN, better
AFIB with RVR, unknown duration, unknown pattern, he has had prior cardioversion
-Rate: not good enough on coreg 25 bid, now on Toprol 75 bid (note could go to Coreg 50 bid given his weight)
-Eliquis resumed for his [id number] score of 2 (HTN, HF)
-Reviewed modifiable risk factors: ETOH, BMI, Exercise, Sleep apnea (if present)
-Reasonable to consider ablation if he follows up with us.
Abnormal troponin, peak 0.068 => most c/w acute non-ischemic myocardial injury from HTN, tachycardia, and HF exacerbation
Subjective:
Feeling better
Data:
-Echo 03/17/2024: LVEF 40% -possible tachycardia induced cardiomyopathy
-BNP(3130) when compensated pBNP 716 /CXR and symptoms consistent with CHF
-prior EF 45-50%
-Echo 03/17/2024: LVEF 40%, LA normal, mild TR, nml est PASP/RA
-No cad cath 2021)
Physical Exam
Vital Signs/Labs
Vital Signs
Temp Pulse Resp BP Pulse Ox
98.4 F 74 16 138/99 97
03/23/24 07:39 03/23/24 07:39 03/23/24 07:39 03/23/24 07:39 03/23/24 07:39
03/22/24 03/23/24 03/24/24
06:59 06:59 06:59
Actual Weight 133.47 kg 134.49 kg
03/23/24 07:45
03/23/24 07:45
Magnesium 1.7 mg/dl (1.6-2.3) 03/19/24 04:56
03/17/24 03/21/24
02:37 04:31
Jia-S-Qwzthttbivu Pept 3130 1870
LAB Results
03/20/24 03/20/24
09:30 15:30
Troponin I 0.017 Cancelled
Physical Exam
Constitutional: No acute distress
EENT: Anicteric
Cardiovascular: Pedal edema is absent, Rhythm/rate is irregular and S1S2 is normal
Respiratory: Respiratory effort normal and Lungs clear to auscul.
GI: Soft and Distention absent
Data Reviewed
-
Date of Service: March 23, 2024
--- NOTE | 2024-03-23 09:55 | W.PN.CRS1 ---
Today's Communication / Plan
-
Okay for discharge from our perspective
Finish course of p.o. antibiotics
Continue a low residue diet
Follow-up in the office in a few weeks with Dr. Snow, eventual colonoscopy
Assessment/Plan
-
Assessment:
59 yo male admitted for AFib/RVR (on Eliquis) with CHF exacerbation who developed abdominal pain today to the lower abdomen near midline.
Plan:
1. Afebrile, tachycardia resolved.
2. WBC now normalized.
3. Continue IV Zosyn. Convert to p.o. and outpatient.
4. No plans for surgery regarding the supraumbilical ventral hernia.
5. On Eliquis per primary team.
6. Will need an eventual colonoscopy as an outpatient.
7. Tolerating a low residue diet.
8. No plans for surgery at this time. Okay for discharge from our perspective. Follow-up in the office in a few weeks with Dr. Snow. Will need eventual colonoscopy. Discussed with patient. Continue on a low residue diet for a few weeks. Will
need to finish course of p.o. antibiotics as an outpatient.
Subjective Data
Subjective Data
Date of Service: March 23, 2024
Patient states he feels much improved today. He denies nausea or vomiting. He is tolerating a diet. He has no abdominal pain.
Objective Data
-
Vital Signs
Temp Pulse Resp BP Pulse Ox
98.4 F 74 16 138/99 97
03/23/24 07:39 03/23/24 07:39 03/23/24 07:39 03/23/24 07:39 03/23/24 07:39
Intake & Output
03/22/24 03/23/24 03/24/24
06:59 06:59 06:59
Intake Total 1050 / 1050 1570 / 1570
Output Total 100 / 100 700 / 700
Balance 950 / 950 870 / 870
Intake:
Oral fluids 600 / 600 1570 / 1570
IV fluids (Total) 250 / 250
D5/0.9% Sodium Chloride 1,000 200 / 200
ml @ 40 mls/hr IV .Q24H MAGDY Rx#
:[id number]
IV piggybacks 200 / 200
Output:
Urine, Voided 100 / 100 700 / 700
Other:
Number of approximated MODERATE 3 4
amounts of urine
Lab Results
03/23/24 07:45
03/23/24 07:45
Physical Exam
-
General: No Acute Distress and AOx3
Abdomen: Soft, Non Distended and Tender (Mild left lower quadrant)
Skin: Warm and Dry
--- NOTE | 2024-03-23 11:19 | CM ---
CM spoke with [facility], per Pharmacist, no cost for [facility]. Patient for discharge today, patient will call sister Talia for transportation home. Patients cell phone is , CM provided patient with sisters contact number to use
hospital phone. CM will continue to follow for discharge planning needs.
Plan; home no needs.
[2024-03-23 11:35] VITALS: BP 130/80
[2024-03-23 12:35] VITALS: BP 159/103
== END 2024-03-23 12:56 | disposition home or self-care (01) | DRG 291 ==
LOC: 4 WEST ACU 06:05
PROVIDERS: Hospitalist; Internal Medicine Cardiovascular Disease; Registered Nurse; Student in an Organized Health Care Education/Training Program; ADMITTING PHYSICIAN Hospitalist; ATTENDING PHYSICIAN Internal Medicine; CONSULT PHYSICIAN Internal Medicine; CONSULT PHYSICIAN Surgery; EMERGENCY PHYSICIAN Emergency Medicine
DX: I11.0 Hypertensive heart disease with heart failure (principal); I50.23 Acute on chronic systolic (congestive) heart failure; K57.32 Diverticulitis of large intestine without perforation or abscess without bleeding; N17.9 Acute kidney failure, unspecified; Z68.41 Body mass index [BMI] 40.0-44.9, adult; E87.1 Hypo-osmolality and hyponatremia; I48.0 Paroxysmal atrial fibrillation; I5A Non-ischemic myocardial injury (non-traumatic); I16.0 Hypertensive urgency; E66.9 Obesity, unspecified; I42.8 Other cardiomyopathies; F41.9 Anxiety disorder, unspecified; F32.A Depression, unspecified
CPT/HCPCS: 70450; 71045; 74177; 80048; 80053; 81003; 82962; 83735; 83880; 84484; 85025; 85027; 93005; 93306; 96374; 96375; 99291; Q9950; Q9967

== ENCOUNTER 2024-05-23 14:45 | Inpatient (IN) | payer OTHER, SELFPAY ==
[2024-05-23] VITALS (29 sets, daily range): BP systolic 115–242; BP diastolic 73–213; BMI 43.5
--- NOTE | 2024-05-23 12:01 | PHANOTE ---
05/23/2024, med rec tech, spoke to pt. to obtain their med. history; per pt., they ran out of all their meds. about 1-2 weeks ago; all of pt.'s meds. were last filled on 03/23/2024 and 03/24/2024 for 30-day supplies.
[2024-05-23 12:27] LABS: % Basophils 0.6 % (0-2); % Eosinophils 1.3 % (0-6); % Immature Granulocytes 0.2 % (0-0.5); % Lymphocytes 19.5 % (20.5-51.1); % Monocytes 4.6 % (1.7-9.3); % Neutrophils 73.8 % (42.2-75.2); Absolute Basophils 0.1 10^3/uL (0-0.2); Absolute Eosinophils 0.1 10^3/uL (0-0.7); Absolute Lymphocytes 1.6 10^3/uL (1.2-3.4); Absolute Monocytes 0.4 10^3/uL (0.1-0.6); Absolute Neutrophils 6.1 10^3/uL (1.4-6.5); Hematocrit 47.9 % (39.0-52.0); Hemoglobin 15.5 g/dL (13.0-18.0); Mean Corp Hgb Conc. 32.4 g/dL (33.0-37.0); Mean Corpuscular Hgb 28.1 pg (27.0-31.0); Mean Corpuscular Volume 86.9 fL (80.0-94.0); Mean Platelet Volume 9.1 fL (7.4-10.4); Nucleated Red Blood Cells % 0 % (-); Platelet Count 238 10^3/uL (130-400); Red Blood Cell Count 5.51 10^6/uL (4.70-6.10); Red Cell Dist. Width 15.9 % (11.5-14.5); White Blood Cell Count 8.3 10^3/uL (4.8-10.8)
[2024-05-23 12:33] LABS: ALT (SGPT) 33 U/L (0-50); AST (SGOT) 45 U/L (17-59); Albumin 4.6 g/dl (3.5-5.0); Alkaline Phosphatase 147 U/L (38-126); Blood Urea Nitrogen 16 mg/dl (9-20); Calcium 9.3 mg/dl (8.4-10.2); Carbon Dioxide 21 mmol/L (22-30); Chloride 105 mmol/L (98-107); Estimated Creatinine Clearance 98 ml/min; Glucose 162 mg/dl (70-99); Potassium 4.1 mmol/L (3.5-5.1); Sodium 138 mmol/L (135-145); Total Protein 7.6 g/dl (6.3-8.2); eGFR > 60.00
[2024-05-23 12:35] LABS: INR 1.16; PT 14.6 Sec (11.4-14.6)
[2024-05-23] MEDS: ZOFRAN 4 MG IV (12:37)
[2024-05-23] MEDS: CARDIZEM 20 MG IV (12:37)
[2024-05-23] MEDS: CARDIZEM 125 IV ×2 (12:37→21:53)
[2024-05-23] MEDS: DILAUDID 1 MG IV (12:37)
[2024-05-23 12:44] LABS: NT-proBNP 2240 pg/ml; Troponin I 0.013 ng/ml
[2024-05-23] MEDS: OMNIPAQUE 50 ML PO (12:45)
--- NOTE | 2024-05-23 13:13 | ED.GENMED ---
History of Present Illness
General
Chief Complaint: Abdominal Pain
Source: patient and ambulance crew
Exam Limitations: none
Time Seen by Provider: 05/23/24 12:17
Nursing documentation reviewed up to this point in time: agreed with except (Patient appears to be hypertensive not hypotensive)
History of Present Illness
History of Present Illness:
59-year-old male multiple chronic medical conditions heart failure hypertension A-fib umbilical hernia based on prior CAT scan presents with acute onset of abdominal pain at his hernia about 2 hours prior to arrival EMS was called, patient was
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
Past History
Past History
ED Past Medical History: Arrthythmia (A-fib), CHF, HTN and Psychiatric (Anxiety, Depression, prior history of substance abuse)
ED Past Surgical History: None
Social History
Tobacco: Non-smoker
Alcohol: Occasional
Drug: Former user
Personal: Single
Living: alone
Employment: Employed
Family History
Family History: Other (Noncontributory)
Review of Systems
Review of Systems
All Other Systems: Not applicable
Constitutional: Denies fever or fatigue
Respiratory: Reports cough and trouble breathing
Cardiac: Reports palpitations
ABD/GI: Reports abdominal pain and nausea
: Reports no symptoms
Musculoskeletal: Reports no symptoms
Neurological: Reports weakness
Endocrine: Reports no symptoms
Hematologic/Lymphatic: Reports no symptoms
Phy Exam
Physical Exam
Physical Exam:
Physical Exam
General: Tachypneic tachycardic hypertensive hypoxic 59 male
Neck: Positive JVD
Heart: Tachycardic and irregular
Lungs: Bibasilar crackle
Abdomen: Tender bulge midline just above the umbilicus
Neuro: alert and oriented. no focal neurological deficits
Skin: no rash
Psychiatric: Appears anxious but cooperative
Extremities: Edema
Course
Orders/Labs/Results
Orders:
Orders
05/23/24 11:44
Electrocardiogram (*1) Urgent
Reason for Study: Tachycardia
EKG- Treatment ONCE
05/23/24 11:47
Complete Blood Count/With Diff Urgent
Comprehensive Metabolic Panel Urgent
Glycohemoglobin (HgbA1c) Urgent
PT/INR [Prothrombin Time] Urgent
Pro-BNP [NT-proBNP] Urgent
Troponin I Urgent
05/23/24 12:26
Iohexol [Omnipaque] See Protocol PO NOW STA
05/23/24 12:27
CT Abd/pel W Iv And Oral Contr Urgent
Comment:
Reason For Exam: vomiting hernia
HYDROmorphone [Dilaudid] 1 mg IV NOW STA
Ondansetron Injectable [Zofran] 4 mg IV NOW STA
CR Chest Portable - 1 View Urgent
Comment:
Reason For Exam: sob
Reason Study Needs to be Portable: Patient Unstable
05/23/24 12:28
Diltiazem 125 mg/125 ml Nss [Cardizem] 125 mg in 125 ml IV NOW
Initial dose in mg/hr, then titrate:: 5
Titrate to keep:: Heart rate 80-100 bpm
Titrate by mg/hr:: 5 mg/hr
Frequency of titrations (minutes):: 15
Maximum dose in mg/hr:: 15
Diltiazem HCl [Cardizem] 20 mg IV NOW STA
05/23/24 12:57
Furosemide [Lasix] 40 mg IV NOW STA
05/23/24 13:43
Case Management Consult ONCE
Case Management Consult: Discharge Planning
05/23/24 14:00
Admit/Transfer Patient As Directed
Co-Sign Provider:
Level of Care: Inpatient admission
Assign to:: IMU- Intermediate Care
Physician / Group: lucy thakur
Diagnosis: afib rvr, htn emergency noncomplia meds, etoh abuse, abd hernia
Reason for Hospitalization: afib rvr, htn emergency noncomplia meds, etoh abuse, abd hernia
Expected length of stay greater than two midnights?: Yes
ELOS- Estimated Length of Stay in days: 5
I certify the patient meets the requirements for IP care: Yes
05/23/24 14:01
Code Status As Directed
Resuscitation Status: Full Code
05/23/24 14:17
CARDIOLOGY CONSULT Routine
Consulting Provider: Tucker Oconnor
Was physician already notified: Yes
Reason for consult: afib rvr
Complete Blood Count/No Diff Urgent
Comment: Obtain baseline before beginning heparin infusion if not already collected
PTT Urgent
Comment: Obtain baseline before beginning heparin infusion if not already collected
Heparin 4,000 units IV NOW STA
Heparin Protocol- PTT Orders As Directed
PTT per Heparin protocol: -Obtain CBC and baseline PTT - if not already collected.
-Obtain PTT 6 hours from start of infusion. Then, every 6 hours until 2 consecutive
PTT's are therapeutic. Then, PTT Daily.
-With each rate change, obtain PTT every 6 hours until 2 consecutive PTT's are
therapeutic. Then, PTT Daily.
Notify MD As Directed
Notify physician if: PTT is greater than or equal to 200.
05/23/24 14:23
Metoprolol Xl [Toprol Xl] 75 mg PO NOW STA
05/23/24 14:30
Heparin 65001 Units/250 ml 25,000 units in 250 ml IV PER PROTOCOL
Weight to be used for heparin protocol in kilograms (kg):: 135.6
Protocol:: Cardiac Tx/Acute Coronary
PTT Goal Range to be used:: PTT 73 to 111 seconds
Order type:: Initial
INITIAL Infusion Dose (UNITS/KG/hr) & then follow protocol:: 12 units/kg/hr
Infusion Dose in UNITS/hr & then follow protocol (UNITS/hr):: 1,000
INFUSION RATE in mL/hr & then follow protocol (mL/hr):: 10
PTT less than or equal to 64 seconds:: Increase rate by 200 units/hr (+ 2 mL/hr)
PTT 64.1 to 72.9 seconds:: Increase rate by 100 units/hr (+ 1 mL/hr)
PTT 73 to 111 seconds:: Target Range. No change in rate.
PTT 111.1 to 130.9 seconds:: Decrease rate by 100 units/hr (- 1 mL/hr)
PTT 131 to 199.9 seconds:: HOLD for 1 hr. Then decrease rate by 200 units/hr (- 2 mL/hr)
PTT greater than or equal to 200 seconds:: HOLD for 2 hrs & Notify Provider. Then decrease by 200 units/hr (-
2 mL/hr)
Lab follow-up:: Each change, PTT q6h until 2 consecutive are therapeutic. Then PTT
daily.
05/23/24 14:39
Add On- LAB Routine
Tests Added?: [id number]
05/25/24 06:00
Complete Blood Count/No Diff Q2D
Comment: Notify MD if platelet count is <130,000 or decreases by 50% from baseline
05/27/24 06:00
Complete Blood Count/No Diff Q2D
Comment: Notify MD if platelet count is <130,000 or decreases by 50% from baseline
05/29/24 06:00
Complete Blood Count/No Diff Q2D
Comment: Notify MD if platelet count is <130,000 or decreases by 50% from baseline
05/31/24 06:00
Complete Blood Count/No Diff Q2D
Comment: Notify MD if platelet count is <130,000 or decreases by 50% from baseline
06/02/24 06:00
Complete Blood Count/No Diff Q2D
Comment: Notify MD if platelet count is <130,000 or decreases by 50% from baseline
06/04/24 06:00
Complete Blood Count/No Diff Q2D
Comment: Notify MD if platelet count is <130,000 or decreases by 50% from baseline
06/06/24 06:00
Complete Blood Count/No Diff Q2D
Comment: Notify MD if platelet count is <130,000 or decreases by 50% from baseline
06/08/24 06:00
Complete Blood Count/No Diff Q2D
Comment: Notify MD if platelet count is <130,000 or decreases by 50% from baseline
Abnormal Lab Results
05/23/24
11:47
MCHC 32.4 L g/dL
(33.0-37.0)
RDW 15.9 H %
(11.5-14.5)
Lymphocytes % 19.5 L %
(20.5-51.1)
Carbon Dioxide 21 L mmol/L
(22-30)
Glucose 162 H mg/dl
(70-99)
Alkaline Phosphatase 147 H U/L
(38-126)
05/23/24 11:47
Vital Signs
Initial and Last Documented VS:
Initial Vital Signs
Temp Pulse Resp BP Pulse Ox
97.5 F 138 20 209/162 96
05/23/24 11:44 05/23/24 11:44 05/23/24 11:44 05/23/24 11:44 05/23/24 11:44
Last Documented Vital Signs
Temp Pulse Resp BP Pulse Ox
97.5 F 125 15 170/115 95
05/23/24 11:44 05/23/24 14:00 05/23/24 14:00 05/23/24 14:00 05/23/24 14:00
Procedures
Other
Indication for procedure:: Symptomatic hernia
Procedure completed by: Margret
Consent form signed: No
If no, reason: Emergency procedure
Additional Procedure:
Reverse Trendelenburg direct pressure hernia reduced
MDM/Problems Addressed
Differential Diagnosis Includes:
Strangulated hernia incarcerated symptomatic hernia medication noncompliance rapid A-fib heart failure
MDM/Problems Addressed:
Abdominal pain tachycardic tachypnea hypoxia
Chronic conditions affecting care: HTN and Arrhythmia
Acute Exacerbation and/or Progression of Chronic Illness:
Hernia
Acute Exacerbation and/or Progression of Chronic Illness: HTN and Arrhythmia
*Radiology
Radiology exam reviewed: preliminary read by ED provider
*Pulse Oximetry
Patient hypoxic: yes
*EKG
Interpreted by ED Provider?: Yes
Interpretation: abnormal
Comparison EKG: no comparison EKG present
Heart Rate: 140
Rate: tachycardiac
Rhythm: a-fib
Ischemia: non-specific ST changes
*Seismic Observer Interpretation
Rate: tachycardiac
Interpretation: abnormal
Heart Rate: 140
Rhythm: a-fib
*Critical Care Note
Total Time (30-74mins, 75-104mins- exclusive of procedures): 31
Update Note
Update Note:
Update multiple complaints medication noncompliance prior CAT scan briefly reviewed did have a hernia, suspect that was showing some signs incarceration was reduced with direct pressure still tachycardic tachypneic, in A-fib will start on rate
control analgesics hold on anticoagulation in case he needs any intervention meantime CT with IV p.o. contrast has been ordered
ED Attending Note
-
Portions of this chart may have been created with voice recognition software.� Occasional wrong word or��sound alike� substitutions may have occurred due to the inherent limitations of voice recognition software.
Discharge Plan
Departure
Patient Disposition: Admit
Date of Disposition: 05/23/24
Time of Disposition: 13:43
Admit to: Telemetry
Presentation/result/management discussed w/ accepting MD/DO: Hospitalist
Patient with high blood pressure during this ER visit?: Yes
Condition: Fair
Covid-19: Not Applicable
Discharge Problem:
Atrial fibrillation with RVR, Hypertensive urgency, malignant, Abdominal hernia
Prescriptions:
No Action
Eliquis 5 mg Tablet
5 mg PO BID 30 Days Qty: 60 0RF
furosemide 40 mg Tablet
40 mg PO DAILY 30 Days Qty: 30 0RF
metoprolol succinate 50 mg Tablet Extended Release 24 Hr
75 mg PO BID 30 Days Qty: 90 0RF
dapagliflozin propanediol [Farxiga] 10 mg Tablet
10 mg PO DAILY
Referrals:
Lebron Noel DO [Family Provider] -
Interventions
Interventions:
*Risk Screen - Suicide Last Done: 05/23/24 11:45
*General Assessment Last Done: 05/23/24 11:45
*Neglect/Abuse Screening Last Done: 05/23/24 11:45
ED- Fall Risk Assessment Last Done: 05/23/24 11:49
*ED COVID-19 Vaccine History Last Done: 05/23/24 11:45
SR-Dhaypv-Mxcikngjfu Assessment Last Done: 05/23/24 11:48
Discharge Date and Time
Print Language: SAMMARINESE
[2024-05-23] MEDS: LASIX 40 MG IV (13:17)
--- NOTE | 2024-05-23 13:34 | HPS.HSE ---
Addendum entered and electronically signed by Geovany Manuel MD 05/23/24 15:30:
I agree with the above that the APC has documented and plan of care as this was discussed
59M hx of HFrEF, umbilical hernia presenting with acute onset abd pain associated with buldging/pain at area of hernia that did not improve. Per the ED was able to reduce. CTAP ordered and pedning. With saying that he was incidently found to be in
AFib with RVR and started on cardizem gtt.
AFib rvr likely secondary to medication noncomplaince and alcoholism/pain.
-Check 2d echo, tsh
-Consult cardiology
-Resume home bb
-Titrate cardizem gtt, monitor BP
-If become unstable may need cardioversion.
-Start Hep gtt
Abdomianl pain ddx from hernia vs ischemic bowel from uncontolled afib
-CTAP with con pending
-Hernia reducible, soft on my exam
-NPO
-Depedning on CTAP findings may need surgical, IR eval
-IVF
HTN emerecy secondary to medication nocomplaince
-On cardizem gtt for Afib RVR. SBP at bedside 170's.
-COntinue to monitor for now
REsume home PO meds
HFrEF, euvolemic, EF 40%, NYHA class 2-3
-Resume GDMT
-Consider starting ARB or ACEi
-Follow HF diet
Morbid obesisty
-Outpatient bariatric follow up
-COnsider outpt eval for GLP-1antag
-Dietary and lifestyle modification
-Outpatient sleep study, Stop bang is high
Alcohol use disroder
-CIWA score/MIND score per Hospital policy
-Benzo use unless if showing signs of DT's then phenobarb taper
-Lenght y discussion of alcohol cessation
-Thiamine and folate
Original Note:
Family Physician
-
Family Physician: Lebron Noel
Chief Complaint
-
Abdominal pain, ran out of medications
History of Present Illness
59-year-old male complaining of abdominal pain around his periumbilical hernia site 2 hours prior to arrival. He was noted to be tachycardic and hypertensive on arrival to the ER. He reported he ran out of his medications 1 week ago. He reports
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 He reports he drinks approximately 10 ounces of vodka at least 5 days a week. He has past medical history of
A-fib with acute on chronic RVR, CHF with reduced EF, HTN, anxiety, depression, prior history of substance abuse, obesity, alcohol abuse
Medical History
Past Medical History
Past Medical History: Reports Other
Additional Past Medical History:
f A-fib with acute on chronic RVR
CHF with reduced E
, HTN
anxiety/depression
prior history of substance abuse
obesity,
alcohol abuse
Chronic umbilical hernia
Past Surgical History: Reports Other (Cardiac cath 2021 no intervention)
Additional Past Surgical History:
Cardiac cath 2023 no intervention
Social History
Tobacco: Non-smoker
Alcohol: Daily (10 ounces of vodka 5 to 7 days a week)
Drug: None
Personal: Single
Living: Alone
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
Family History
Family History: Not pertinent
Allergies / Home Medications
Allergies reflects when Allergies were last updated in [facility].
Home Medications with original date entered in [facility]
Allergy/Medication List:
Allergies
Allergy/AdvReac Type Severity Reaction Status Date / Time
No Known Allergies Allergy Verified 03/17/24 02:18
Home Medications
apixaban 5 mg tablet (Eliquis) 5 mg PO BID 30 days #60 tabs 03/23/24
furosemide 40 mg tablet 40 mg PO DAILY 30 days #30 tabs 03/23/24
metoprolol succinate 50 mg tablet,extended release 24 hr 75 mg (1.5 x 50 mg) PO BID 30 days #90 tabs 03/23/24
dapagliflozin propanediol 10 mg tablet (Farxiga) 10 mg PO DAILY 05/23/24
Review of Systems
-
History Source: Patient
A 12 point ROS was completed and negative except as noted: Yes
Constitutional: Denies Fever or Chills
EENT: Denies Sore Throat or Runny Nose
Respiratory: Denies Cough or Trouble Breathing
Cardiac: Denies Chest Pain, Diaphoresis, Palpitations or Syncope
Abdomen/GI: Reports Abdominal Pain; Denies Nausea, Vomiting, Diarrhea, Constipated, Bloody Stools or Black Stools
: Denies Dysuria, Frequency, Flank Pain, Incontinence or Difficulty Voiding
Musculoskeletal: Denies Joint Pain or Edema
Skin: Denies Itching or Rash
Neurological: Denies Dizzy, Headache or Weakness
Endocrine: Reports No Symptoms
Hematologic/Lymphatic: Reports No Symptoms
Psych: Reports Calm
Physical Exam
Vital Signs
Vital Signs
Temp Pulse Resp BP Pulse Ox
97.5 F 112 15 171/118 92
05/23/24 11:44 05/23/24 13:15 05/23/24 13:15 05/23/24 13:15 05/23/24 13:15
Physical Exam
General: Morbidly Obese; No Pain or Fever
HEENT: NormoCephalic, Anicteric, Moist mucous membranes, PERRLA, [place] Conjunctivae and No Ptosis
Respiratory: Clear; No Wheezes, Rales or Rhonchi
Cardiac: S1/S2 and Irregular Rhythm (A-fib with RVR 130 bpm on monitor); No Murmur, Rub, Gallop, Peripheral Edema or JVD
GI: Soft, Non Tender, Non Distended, Normal Bowel Sounds and Other (Soft right-sided periumbilical hernia present currently nontender was reduced in ER by ER provider)
Rectal: Deferred by Provider
Genito-urinary: Deferred by me
Musculoskeletal: No Clubbing, No Cyanosis and No Edema
Skin: Warm and Dry; No Rash or Jaundice
Neuro: AO x 3, No Motor Deficits, Nonfocal/grossly intact, Cranial Nerves Intact and No Sensory Deficits; No Slurred Speech, Facial Droop or Tremors
Psych: Calm
Laboratory Results
-
05/23/24 11:47
05/23/24 11:47
Laboratory Results
PT 14.6 Sec (11.4-14.6) 05/23/24 11:47
INR 1.16 05/23/24 11:47
Total Bilirubin 1.0 mg/dl (0.2-1.3) 05/23/24 11:47
AST 45 U/L (17-59) 05/23/24 11:47
ALT 33 U/L (0-50) 05/23/24 11:47
Alkaline Phosphatase 147 U/L (38-126) H 05/23/24 11:47
Troponin I 0.013 ng/ml 05/23/24 11:47
Impression/Plan
-
Impression/plan:
Admit to IMU
#A-fib with RVR acute on chronic
-Noncompliant with home medications
-Coreg was changed to Toprol 75 mg daily March 2024
-Has not taken Eliquis in 1 week
-Will start IV heparin with bolus drip until CT abdomen pelvis resulted
-Consult cardiology
#Hypertensive urgency 2/2 -noncompliance with meds
History noncompliance with meds
226/136 > 158/118
-Continue IVF diltiazem drip for above A-fib RVR/HTN
-IV Lasix 40 mg once given in ER
-Will give dose of metoprolol succinate 75 mg now
CXR: Mild interstitial pulmonary edema no effusions
#Alcohol abuse
Last drink was 05/21/2024
Drinks 10 ounces of vodka 5 to 7 days a week
-MSAs screen with protocol, IV thiamine, IV folate
#Acute on chronic periumbilical hernia concern for incarceration/ischemia
Was reduced in ER
-Will check CT abdomen pelvis with IV and oral contrast
#Chronic CHF with reduced EF
I/O, daily weight, BMP 20-40
Continue Lasix, Farxiga
IV Lasix 40 mg given in ER
2D echo 03/17: LVEF 40% no change from prior study
#Hx sigmoid diverticulitis March 2024 treated with Zosyn/Augmentin
#Suspected sleep apnea
Reportedly sleeps with 2-3 pillows side lying states finds himself waking up as he stops breathing
-Recommend outpatient sleep study evaluation
#Obesity due to excess calorie consumption�BMI 42.9 kg
Low-fat diet recommended
Weight loss recommended
DVT prophylaxis
Current IV heparin drip
Full code
--- NOTE | 2024-05-23 14:30 | CON.CAR ---
Addendum entered and electronically signed by Tucker Oconnor MD 05/23/24 18:02:
I saw and examined the patient.
The EMBOSSING UNIT OPERATOR's note was reviewed and I agree with the note.
Comment: Large component of social determinants of health as he says he is virtually a shut-in. We will need to see him in the office periodically. But frequent blood work is mandatory with the institution of GDMT with the RAAS and MRA
medications. Will ask case management if home VNA with blood drawing is possible / affordable option.
Original Note:
Consultation
Consultation Request
Date/Time Consultation Requested: 05/23/2024 14:17
Date/Time Consultation Performed: 05/23/2024 14:30
Requesting Provider: ABBEY Deluca
Performing Provider: ABBEY Laughlin for Dr. Oconnor
Reason for Consultation: Atrial fibrillation with rapid ventricular response
Medical History
-
Chief Complaint: Abdominal pain
History of Present Illness:
Mark Saenz is a 59-year-old male (initially seen by Dr. Salmon in 2021), with paroxysmal now persistent atrial fibrillation, nonischemic cardiomyopathy, HFrEF, hypertension, anxiety, and daily EtOH consumption who presented to the emergency
department with severe abdominal pain. He had acute onset abdominal pain prompting him to call 911. He was tachycardic and hypertensive. He had not taken any of his prescriptive medications in at least 1 week. He ran out. He has not been able
to make follow-up office visits. This is multifactorial as he does not want to come to the office due to social anxiety and he does not have a vehicle. Chest x-ray consistent with mild interstitial pulmonary edema. He was given furosemide 40 mg
IV x 1. Given his umbilical hernia with abdominal pain, and abdomen pelvis CT is pending. He was also found to be in atrial fibrillation with rapid ventricular response. He was given his home dose of metoprolol succinate and a diltiazem drip was
started. He is currently on a heparin drip for oral anticoagulation.
Past Medical History
Past Medical History: Arrhythmias (Paroxysmal atrial fibrillation), CHF (HFrEF), HTN and Psychiatric (Anxiety)
Past Surgical History: None
Social History
Alcohol: Daily
Drug: None
Personal: Single
Living: With Roomate (Renting a room)
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
Family History
Family History: Reviewed & Not Pertinent (Denies early CAD and SCD.)
Allergies / Home Medications
Allergy/AdvReac Type Severity Reaction Status Date / Time
No Known Allergies Allergy Verified 03/17/24 02:18
�Medication �Instructions �Recorded �Confirmed �Type
apixaban 5 mg tablet (Eliquis) 5 mg PO BID 30 days #60 tabs 03/23/24 05/23/24 Rx
furosemide 40 mg tablet 40 mg PO DAILY 30 days #30 tabs 03/23/24 05/23/24 Rx
metoprolol succinate 50 mg 75 mg (1.5 x 50 mg) PO BID 30 days 03/23/24 05/23/24 Rx
tablet,extended release 24 hr #90 tabs
dapagliflozin propanediol 10 mg 10 mg PO DAILY 05/23/24 05/23/24 History
tablet (Farxiga)
Review of Systems
-
History Source: Patient
All other systems: Negative unless noted
Constitutional: Fatigue
EENT: No Symptoms
Respiratory: Trouble Breathing
Cardiac: Palpitations
Abdomen/GI: Abdominal Pain
Musculoskeletal: No Symptoms
Physical Exam
Vital Signs
Temp Pulse Resp BP Pulse Ox
97.5 F 125 15 170/115 95
05/23/24 11:44 05/23/24 14:00 05/23/24 14:00 05/23/24 14:00 05/23/24 14:00
Lab Results
05/23/24 11:47
Troponin I 0.013 ng/ml 05/23/24 11:47
Kog-W-Xxcnxdzqkuk Pept 2240 pg/ml 05/23/24 11:47
Physical Exam
General: Well Developed, Well Nourished, No Apparent Distress and Comfortable
HEENT: Normocephalic, Anicteric and Moist Mucous Membranes
Respiratory: Crackles and Non Labored Respirations
Cardiac: S1/S2, Irregular Rhythm and Peripheral Edema (+1 bilateral ankle edema)
Breast: Deferred by me
GI: Soft, Non Tender, Non Distended and Normal Bowel Sounds
Rectal: Deferred by Provider
Genito-urinary: No Costovertebral Tender
Musculoskeletal: No Clubbing and No Cyanosis
Skin: Warm and Dry
Neuro: AO x 3
Hematologic/Lymphatic: No Lymphadenopathy
Psych: Calm
Impression / Plan
-
BACKGROUND: 59M Mark Saenz is a 59-year-old male (initially seen by Dr. Salmon in 2021), with paroxysmal now persistent atrial fibrillation, nonischemic cardiomyopathy, HFrEF, hypertension, anxiety, and daily EtOH consumption who presented to
the emergency department with severe abdominal pain. He was found to be in acute on chronic heart failure and have atrial fibrillation for ventricular response.
HFrEF (EF 40%), acute on chronic
Nonischemic cardiomyopathy
-Diuresis with furosemide 40 mg IV twice daily
-GDMT as tolerated
-Beta-eliane: Metoprolol succinate 75 mg daily, resume
-ACEi/ARB: Can consider
-SGLT2i: Farxiga 10 mg daily, resume
-Sacubitril/valsartan: He would like to limit the amount of outpatient labs ordered, may not be the most medication for him
-MRA: He is not interested in standing outpatient monitoring
-No significant coronary artery disease 03/2022 by cardiac catheterization
-Trend daily weight, I/O, and BMP with diuresis
-Heart failure education, he does not have a scale at home
Persistent atrial fibrillation, now with RVR
-Plan for rate control, no DCCV given noncompliance
-Resume metoprolol succinate 75 mg daily, continue diltiazem drip
-Oral Anticoagulation: Apixaban 5 mg twice daily, multiple missed doses, denies abnormal bleeding
-[id number]: score 2 (Heart failure, HTN)
Hypertension, follow-up with diuresis
Abdominal pain, per primary service
Prediabetes, update HgbA1c
Daily EtOH consumption
Anxiety, he reports this limits his outpatient follow-up
Obesity, BMI 42
Data Reviewed
-
EKG: Report Reviewed by me (Atrial fibrillation with right ventricular response, rate 137)
Radiology: Report Reviewed by me (Interstitial pulmonary edema, mild.)
Medical Tests (Nuc Med, Echo etc): Report Reviewed by me (Prior echocardiogram and cardiac catheterization as above)
Labs: Labs Reviewed by me
Old Records: Reviewed
[2024-05-23 16:06] LABS: APTT 29.9 Sec (23.4-35.0)
[2024-05-23] MEDS: TOPROL XL 75 MG PO ×2 (17:12→18:32)
[2024-05-23] MEDS: HEPARIN 4000 UNITS IV (17:13)
[2024-05-23] MEDS: HEPARIN 25000 UNITS/250 ML IV (17:18)
[2024-05-23] MEDS: THIAMINE INJECTION 200 MG IV ×2 (18:23→23:33)
[2024-05-23 18:53] LABS: Urine Albumin Negative (Neg - Trace); Urine Bilirubin Negative (Negative); Urine Character Clear (Clear); Urine Color Yellow; Urine Glucose Negative (Negative); Urine Ketone Negative (Negative); Urine Leukocyte Negative (Negative); Urine Nitrite Negative (Negative); Urine Occult Blood Negative (Negative); Urine Urobilinogen Negative (Neg - 1+)
[2024-05-23 18:57] LABS: Hematocrit 44.8 % (39.0-52.0); Hemoglobin 14.9 g/dL (13.0-18.0); Mean Corp Hgb Conc. 33.3 g/dL (33.0-37.0); Mean Corpuscular Hgb 28.7 pg (27.0-31.0); Mean Corpuscular Volume 86.3 fL (80.0-94.0); Mean Platelet Volume 9.1 fL (7.4-10.4); Platelet Count 252 10^3/uL (130-400); Red Blood Cell Count 5.19 10^6/uL (4.70-6.10); Red Cell Dist. Width 16.1 % (11.5-14.5); White Blood Cell Count 11.3 10^3/uL (4.8-10.8)
[2024-05-23 19:05] LABS: GGTP 99 U/L (15-73); Magnesium 1.6 mg/dl (1.6-2.3); Phosphorus 3.7 mg/dl (2.5-4.5)
[2024-05-23 19:06] LABS: Amphetamines Negative (Negative); Barbiturates Negative (Negative); Benzodiazepines Negative (Negative); Buprenorphine Negative (Negative); Cocaine Negative (Negative); Marijuana Negative (Negative); Methadone Negative (Negative); Methamphetamines Negative (Negative); Opiates Positive (Negative); Phencyclidine Negative (Negative); Tricyclic Antidepressants Negative (Negative)
[2024-05-23 19:11] LABS: B-Hydroxybutyrate 0.21 mmol/L (0.02-0.27)
[2024-05-23 19:23] LABS: Alcohol None Detected
[2024-05-23 20:48] LABS: Fentanyl, Urine Negative (Negative)
[2024-05-23 23:24] LABS: APTT 35.3 Sec (23.4-35.0)
[2024-05-24] VITALS (17 sets, daily range): BP systolic 111–154; BP diastolic 69–105; PULSE 76–88; O2SAT 94–95; BMI 43.4
--- NOTE | 2024-05-24 01:08 | PTCARENOTE ---
Patient's HR sustaining 60-70s in Afib rhythm. ABBEY Pearl made aware, verbal ok to decrease Cardizem gtt to 2.5mg/hr. BP 111/69 (80). Pt offers no complaints. Heparin gtt continues and titrated per protocol.
--- NOTE | 2024-05-24 04:35 | PTCARENOTE ---
Cardizem gtt stopped d/t HR sustaining in the 50s while pt asleep. ABBEY Pearl made aware.
MSAS has been zero; pt reports last drink was Thursday.
Pt reports abd pain has subsided since hernia was reduced in ER. Abd remains round/obese.
Pt able to ambulate to BR with SBA, HR up to 80-90s. Tolerated well. Denies SOB/GAVIN. Small BM.
Call cedeño and tray table within reach. Pt educated network controller cedeño use and fall precautions.
Heparin gtt continues per protocol.
[2024-05-24 06:06] LABS: % Basophils 0.7 % (0-2); % Eosinophils 1.4 % (0-6); % Immature Granulocytes 0.1 % (0-0.5); % Lymphocytes 24.3 % (20.5-51.1); % Monocytes 8.6 % (1.7-9.3); % Neutrophils 64.9 % (42.2-75.2); Absolute Basophils 0.1 10^3/uL (0-0.2); Absolute Eosinophils 0.1 10^3/uL (0-0.7); Absolute Lymphocytes 1.7 10^3/uL (1.2-3.4); Absolute Monocytes 0.6 10^3/uL (0.1-0.6); Absolute Neutrophils 4.6 10^3/uL (1.4-6.5); Hematocrit 39.1 % (39.0-52.0); Hemoglobin 13.3 g/dL (13.0-18.0); Mean Corpuscular Hgb 28.6 pg (27.0-31.0); Mean Corpuscular Volume 84.1 fL (80.0-94.0); Nucleated Red Blood Cells % 0 % (-); Platelet Count 240 10^3/uL (130-400); Red Blood Cell Count 4.65 10^6/uL (4.70-6.10); Red Cell Dist. Width 16.3 % (11.5-14.5); White Blood Cell Count 7.1 10^3/uL (4.8-10.8)
[2024-05-24 06:18] LABS: APTT 40.6 Sec (23.4-35.0)
[2024-05-24 06:44] LABS: Calcium 8.9 mg/dl (8.4-10.2); Carbon Dioxide 24 mmol/L (22-30); Estimated Creatinine Clearance 98 ml/min; Potassium 4.2 mmol/L (3.5-5.1); eGFR > 60.00
[2024-05-24 07:47] LABS: Blood Urea Nitrogen 22 mg/dl (9-20); Chloride 103 mmol/L (98-107); Glucose 112 mg/dl (70-99); Sodium 135 mmol/L (135-145)
[2024-05-24] MEDS: THIAMINE INJECTION 200 MG IV ×2 (08:33→15:44)
[2024-05-24] MEDS: FLUSH (NSS) 2 FLUSH IV (08:33)
[2024-05-24] MEDS: LASIX 40 MG PO (08:34)
[2024-05-24] MEDS: ELIQUIS 5 MG PO ×2 (08:34→20:52)
[2024-05-24] MEDS: FOLVITE 1 MG PO (08:34)
[2024-05-24] MEDS: FARXIGA 10 MG PO (08:34)
[2024-05-24] MEDS: TOPROL XL 75 MG PO ×2 (08:34→20:52)
--- NOTE | 2024-05-24 08:45 | PTCARENOTE ---
No events reported overnight. MSAS score of 1. Heparin drip discontinued as ordered. Eliquis given this morning. Patient denies any pain or discomfort. Denies shortness of breath. Patient using call cedeño appropriately. Afib on monitor with HR
70's. Last BP 135/94.
[2024-05-24 08:46] LABS: Glycohemoglobin (HgbA1c) 5.8 % (4.0-5.6)
--- NOTE | 2024-05-24 09:22 | W.PN.CD ---
Today's Communication / Plan
-
-Continue Lasix 40 mg PO daily.
-Continue Toprol-XL 75 mg twice daily.
-Continue Farxiga 10 mg daily (patient was taking that at home).
-GDMT (and even regular medications) will likely be limited due to affordability, as patient has not followed up with Cardiology as an outpatient due to social situation (social anxiety and does not drive).
-Plan is for rate control, no DCCV given noncompliance.
-Continue Eliquis 5 mg twice daily for now; patient has admitted to missed doses, which he was told is not appropriate.
-Outpatient follow-up with Cardiology; no further recommendations at this time.
Impression / Plan
-
BACKGROUND: 59M Mark Saenz is a 59-year-old male (initially seen by Dr. Salmon in the hospital in 2021; has followed up in the outpatient Cardiology office), with persistent atrial fibrillation, nonischemic chronic cardiomyopathy/HFmrEF (40%),
hypertension, anxiety, and daily EtOH consumption who presented to the emergency department with severe abdominal pain. He was found to be in acute on chronic heart failure and have atrial fibrillation for ventricular response.
Nonischemic cardiomyopathy/HFrEF (EF 40%), chronic
-Patient ran out of medications 1 to 2 weeks ago.
-Continue Lasix 40 mg PO daily.
-Continue Toprol-XL 75 mg twice daily.
-Continue Farxiga 10 mg daily (patient was taking that at home).
-GDMT (and even regular medications) will likely be limited due to affordability, as patient has not followed up with Cardiology as an outpatient due to social situation (social anxiety and does not drive).
-No ACEi/ARB secondary to previous MIRACLE.
-Sacubitril/valsartan: He would like to limit the amount of outpatient medications/labs ordered, and will not be able to afford.
-MRA: He is not interested in standing outpatient monitoring.
-No significant coronary artery disease 03/2022 by cardiac catheterization
-Heart failure education, he does not have a scale at home.
Persistent atrial fibrillation, now with RVR
-Plan is for rate control, no DCCV given noncompliance.
-Continue Toprol-XL 75 mg twice daily.
-Continue Eliquis 5 mg twice daily for now; patient has admitted to missed doses, which he was told is not appropriate.
-[id number]: score 2 (Heart failure, HTN)
Hypertension, improved
Abdominal pain, per primary service
Prediabetes, hemoglobin A1c 5.8%
Daily EtOH consumption
Anxiety, he reports this limits his outpatient follow-up
Obesity, BMI 42
Physical Exam
Vital Signs/Labs
Vital Signs
Temp Pulse Resp BP Pulse Ox
98.1 F 90 22 135/94 94
05/24/24 07:00 05/24/24 08:15 05/24/24 08:15 05/24/24 08:00 05/24/24 08:18
05/23/24 05/24/24 05/25/24
06:59 06:59 06:59
Actual Weight 137.1 kg
05/24/24 05:32
05/24/24 05:32
PT 15.0 Sec (11.4-14.6) H 05/23/24 23:07
PT Cancelled 05/23/24 23:07
INR 1.20 05/23/24 23:07
INR Cancelled 05/23/24 23:07
APTT 40.6 Sec (23.4-35.0) H 05/24/24 05:32
Magnesium 1.6 mg/dl (1.6-2.3) 05/23/24 18:38
05/23/24
11:47
Gie-X-Lybclktufzz Pept 2240
LAB Results
05/23/24
11:47
Troponin I 0.013
Physical Exam
Constitutional: No acute distress and Comfortable
EENT: Anicteric
Cardiovascular: Systolic murmur absent, Rhythm/rate is irregular, Pedal edema present (Trace bilateral lower extremity edema) and S1S2 is normal
Respiratory: Respiratory effort normal and Lungs clear to auscul.
GI: Soft
Neuro/Psych: AO x 3
Other: Skin (Warm, dry, intact)
Data Reviewed
-
Date of Service: May 24, 2024
EKG: Tracing Personally Visualized and interpreted (Telemetry: A-fib (rate-controlled))
Medical Tests (PFT, Pathology etc): Discussed with Physician (Primary Hospitalist)
Labs: Labs Reviewed by me
--- NOTE | 2024-05-24 13:12 | W.PN.HOSP.TC ---
Today's Communication/Plan
-
Transfer to tele
Monitor rhythm and BP
May need to add low dose ACEi/ARB
Will need outpt pulm/sleep medicine follow up
Will need outpatient general surgery for hernia repair
Will need outpatient cardiology follow up
Assessment / Plan
Assessment / Plan
Physical exam
Morbidly obese gentleman who is lying in bed comfortably. While off oxygen sleeping had a SpO2 of 88%. As soon as I woke him up O2 saturations popped up to 90 to 94%.
No acute distress
Scleral anicteric
Moist mucous membranes
No JVD
CTA bilateral without wheezing crackles rhonchi
S1-S2 present, irregularly irregular
Soft nontender nondistended protuberant abdomen with a reducible umbilical hernia that is located on the right side
No lower extremity edema noted
AAOx3, moving upper and lower extremities spontaneously, without focal neurological deficits on exam
Normal affect
Assessment and Plan
AFib rvr likely secondary to medication noncomplaince and alcoholism/pain.
-2d echo as above from 03/17/24, discussed with cardiology new one not indicated at this time
-Cards following
-BB BID - long acting
-Resume AC
Umbilical hernia - reduced
-CT showing ileus
-Outpatient general surgery follow up
-Awaiting BM
HTN emergency secondary to medication noncompliance
-BP improved
-Continue diuretics and BB
-If uncontrolled can start low dose ARB/ACEi
HFrEF, euvolemic, EF 40%, NYHA class 2-3
-Resume GDMT (BB, SGLT2i,Lasix)
-Consider starting ARB or ACEi
-Follow HF diet
Morbid obesisty
-Outpatient bariatric follow up
-Consider outpt eval for GLP-1antag
-Dietary and lifestyle modification
-Outpatient sleep study, Stop bang is high
Nocturnal hypoxemia
-High stop bang
-Need sleep study
- - On DC will need to follow up with Kimmy Platt DO for sleep medicine
Alcohol use disorder
-CIWA score/MIND score per Hospital policy
-Benzo use unless if showing signs of DT's then phenobarb taper
-Lenght y discussion of alcohol cessation
-Thiamine and folate
Anticipated Discharge: 24 - 48 hours
Subjective/Interval History
-
Date of Service: May 24, 2024
Patient seen and examined. No new complaints. No acute overnight events.
In rate controlled atrial fibrillation.
No further shortness of breath no abdominal pain.
Has a bowel movement daily. Has not had 1 since being in the hospital the end barely passing gas.
CT showing potential ileus
Discussed case at bedside with cardiology attending. Continue rate control with beta-blockade. No longer needs heparin drip nor Cardizem drip. Resume Eliquis.
Objective Data
-
Labs:
Laboratory Results
05/24/24 05/24/24
05:32 12:25
WBC 7.1
Hgb 13.3
Hct 39.1
Plt Count 240
APTT 40.6 H Pending
Sodium 135
Potassium 4.2
Chloride 103
Carbon Dioxide 24
BUN 22 H
Creatinine 1.1
Glucose 112 H
Calcium 8.9
Vital Signs:
Vital Signs
Temp Pulse Resp BP Pulse Ox
98.0 F 90 22 135/94 94
05/24/24 11:00 05/24/24 08:15 05/24/24 08:15 05/24/24 08:00 05/24/24 08:18
I&O
05/23/24 05/24/24 05/25/24
06:59 06:59 06:59
Intake Total 120 / 120
Output Total 700 / 700
Balance -580 / -580
2d echo 03/17/24
CONCLUSIONS
Normal LV size with mild to moderately reduced systolic function.
LVEF is approximately 40% by Westfall's method of discs.
Global diffuse hypokinesis.
Normal right ventricular size and function.
Mild tricuspid regurgitation.
Estimated pulmonary artery pressure of 20-25 mmHg assuming a right atrial
pressure of 3 mmHg.
Compared to prior from August 14, 2023, on [id number] comparison overall
LVEF is now mild to moderately reduced and is approximately 40% on today's
study. Additionally, patient is in atrial fibrillation today.
--- NOTE | 2024-05-24 14:48 | CM ---
CM met with pt bedside
Pt rents a room with a landlord in a split level home with 7STE
8 steps to full bed and bath
Pt notes independence with his ADLs
Denies use of DMEs
Has limited endurance and can walk to drive way and back only
Not on home O2 at baseline
PCP- Lebron Noel
Rx- [facility]
CM consult for med pricing
Call with [facility] Rx- Entresto, Farxiga and Eliquis all covered 100%, $0 copays
CM also consulted for home visiting lab work
Pt notes he is a near shut-in
He does not have a car or license and cannot afford transportation
Also noted food insecurities
[employer] info printed out and placed in dc packet for food coverage and pantries
Application for [facility] transport placed in dc folder as well
Mobile lab/PTI form placed on chart for cardio to complete
Update to Joan/cardio regarding med pricing and PTI
Per [facility], mobile lab to process at [facility] or [facility]
CM to follow for VN and home O2 needs
Discharge Disposition- home, follow for needs
[2024-05-24] MEDS: FLUSH (NSS) 1 FLUSH IV (15:45)
--- NOTE | 2024-05-24 16:00 | PTCARENOTE ---
05/24- Patient transferred to unit without issue. AAOX3. Telemetry #43- currently AFib with HR=78. Skin CDI. Patient denies any current needs or complaints.
[2024-05-25] MEDS: THIAMINE INJECTION 200 MG IV ×3 (00:28→16:08)
[2024-05-25] MEDS: FLUSH (NSS) 2 FLUSH IV (00:28)
[2024-05-25 03:22] VITALS: BP 130/83
[2024-05-25 06:00] VITALS: BMI 43.0
[2024-05-25 08:00] VITALS: BP 132/86
[2024-05-25 08:50] LABS: % Basophils 0.7 % (0-2); % Eosinophils 1.9 % (0-6); % Immature Granulocytes 0.3 % (0-0.5); % Lymphocytes 21.3 % (20.5-51.1); % Monocytes 7.5 % (1.7-9.3); % Neutrophils 68.3 % (42.2-75.2); Absolute Basophils 0.1 10^3/uL (0-0.2); Absolute Eosinophils 0.1 10^3/uL (0-0.7); Absolute Lymphocytes 1.5 10^3/uL (1.2-3.4); Absolute Monocytes 0.5 10^3/uL (0.1-0.6); Absolute Neutrophils 4.8 10^3/uL (1.4-6.5); Hematocrit 44.7 % (39.0-52.0); Hemoglobin 14.7 g/dL (13.0-18.0); Mean Corp Hgb Conc. 32.9 g/dL (33.0-37.0); Mean Corpuscular Hgb 28.9 pg (27.0-31.0); Mean Corpuscular Volume 87.8 fL (80.0-94.0); Mean Platelet Volume 8.9 fL (7.4-10.4); Nucleated Red Blood Cells % 0 % (-); Platelet Count 244 10^3/uL (130-400); Red Blood Cell Count 5.09 10^6/uL (4.70-6.10)
[2024-05-25 09:55] LABS: Blood Urea Nitrogen 23 mg/dl (9-20); Calcium 9.4 mg/dl (8.4-10.2); Carbon Dioxide 27 mmol/L (22-30); Chloride 99 mmol/L (98-107); Estimated Creatinine Clearance 83 ml/min; Glucose 151 mg/dl (70-99); Potassium 4.6 mmol/L (3.5-5.1); Sodium 136 mmol/L (135-145); eGFR > 60.00
[2024-05-25] MEDS: FOLVITE 1 MG PO (09:55)
[2024-05-25] MEDS: LASIX 40 MG PO (09:55)
[2024-05-25] MEDS: ELIQUIS 5 MG PO (09:55)
[2024-05-25] MEDS: FARXIGA 10 MG PO (09:55)
[2024-05-25] MEDS: TOPROL XL 75 MG PO (09:56)
[2024-05-25 10:31] VITALS: BP 138/93
--- NOTE | 2024-05-25 12:28 | CM ---
Addendum entered by Tonja Werner 05/25/24 16:12:
Patient's physician ordered visiting nurses options reviewed and patient has selected VN, VN liaison contacted. Patient did have home evaluation for testing with activity and patient does not qualify for home oxygen.
Plan; Home with [facility].
Original Note:
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 Patient states that the days he works at the restaurant they provide his
meals. Patient has information on other resources for food and utilities that were given by the other counter caser, patient reports that he has his own transportation to to home.
Plan; Home when stable, no needs.
[2024-05-25 15:00] VITALS: BP 156/93
--- NOTE | 2024-05-25 16:07 | W.PN.HOSP.TC ---
Today's Communication/Plan
-
dc home
medication sent to the pharmacy
Assessment / Plan
Assessment / Plan
Physical exam
Morbidly obese gentleman who is lying in bed comfortably. While off oxygen sleeping had a SpO2 of 88%. As soon as I woke him up O2 saturations popped up to 90 to 94%.
No acute distress
Scleral anicteric
Moist mucous membranes
No JVD
CTA bilateral without wheezing crackles rhonchi
S1-S2 present, irregularly irregular
Soft nontender nondistended protuberant abdomen with a reducible umbilical hernia that is located on the right side
No lower extremity edema noted
AAOx3, moving upper and lower extremities spontaneously, without focal neurological deficits on exam
Normal affect
Assessment and Plan
AFib rvr likely secondary to medication noncomplaince and alcoholism/pain.
-2d echo as above from 03/17/24, discussed with cardiology new one not indicated at this time
-Cards following
-BB BID - long acting
-Conitnue AC
Umbilical hernia - reduced
-CT showing ileus
-Outpatient general surgery follow up
-Awaiting BM
HTN emergency secondary to medication noncompliance
-BP improved
-Continue diuretics and BB
-If uncontrolled can start low dose ARB/ACEi
HFrEF, euvolemic, EF 40%, NYHA class 2-3
-Resume GDMT (BB, SGLT2i,Lasix)
-Consider starting ARB or ACEi
-Follow HF diet
Morbid obesisty
-Outpatient bariatric follow up
-Consider outpt eval for GLP-1antag
-Dietary and lifestyle modification
-Outpatient sleep study, Stop bang is high
Nocturnal hypoxemia
-High stop bang
-Need sleep study
- - On DC will need to follow up with Kimmy Platt DO for sleep medicine
Alcohol use disorder
-CIWA score/MIND score per Hospital policy
-Benzo use unless if showing signs of DT's then phenobarb taper
-Lenght y discussion of alcohol cessation
-Thiamine and folate
Did not meet home need for o2 per respiratory.
Will need sleep study.
Needs to stop drinking/abusing alcohol
Anticipated Discharge: Today
Subjective/Interval History
-
Date of Service: May 25, 2024
seen and examined
no new compalints.
no acute overniggt events
Objective Data
-
Labs:
Laboratory Results
05/25/24
08:20
WBC 7.0
Hgb 14.7
Hct 44.7
Plt Count 244
Sodium 136
Potassium 4.6
Chloride 99
Carbon Dioxide 27
BUN 23 H
Creatinine 1.3
Glucose 151 H
Calcium 9.4
Vital Signs:
Vital Signs
Temp Pulse Resp BP Pulse Ox
97.6 F 96 19 156/93 95
05/25/24 15:00 05/25/24 15:00 05/25/24 15:00 05/25/24 15:00 05/25/24 15:00
I&O
05/24/24 05/25/24 05/26/24
06:59 06:59 06:59
Intake Total 120 / 120 960 / 960
Output Total 700 / 700 1415 / 1415
Balance -580 / -580 -455 / -455
--- NOTE | 2024-05-25 16:10 | W.DCSUMMARY ---
Discharge Summary
Discharge Data
Date of Admission: 05/23/24
Date of Discharge: 05/25/24
Total time spent discharging patient (in min): 40
-
Pending Results: No
Hospital Course
Presented with abdominal pain from umbilical hernia site described as bulging. Was reduced in the ER however and denies found to be in atrial fibrillation with RVR. Required to be started on a rate controlling drip with Cardizem. Likely in atrial
fibrillation with RVR secondary to noncompliance as he ran out of home meds. Additionally, potential trigger of this atrial fibrillation episode could be alcohol. Had lengthy discussion about abstaining from alcohol.
Should be noted that his oxygen does drop overnight. Has been recommended that he has a sleep study as an outpatient to assess for obstructive sleep apnea as he would likely benefit from CPAP as this would help with blood pressure atrial
fibrillation and heart failure. Assessed needs for home o2 but did not meet qualifications.
At this time cleared for discharge with outpatient follow-up with cardiology for atrial fibrillation RVR, heart failure. Follow-up with outpatient sleep medicine/pulmonary medicine for sleep study. Will also need outpatient follow-up with general
surgery for elective hernia repair. Outpatient follow-up with PCP.
Discharge Plan
-
Patient Disposition: Home with Home Care
Discharge Diagnosis/Procedures: HFrEF, umbilical hernia, A-fib, Morbid obesity, alcohol use disorder
Condition: Fair
Diet: Low Fat, Low Cholesterol, 2 Gram Sodium and No added salt
Activity: As tolerated
Driving Restrictions: As prior to admission
Bathing Restrictions: None
Activity Restrictions/Additional Instructions:
Presented with abdominal pain from umbilical hernia site described as bulging. Was reduced in the ER however and denies found to be in atrial fibrillation with RVR. Required to be started on a rate controlling drip with Cardizem. Likely in atrial
fibrillation with RVR secondary to noncompliance as he ran out of home meds. Additionally, potential trigger of this atrial fibrillation episode could be alcohol. Had lengthy discussion about abstaining from alcohol.
Should be noted that his oxygen does drop overnight. Has been recommended that he has a sleep study as an outpatient to assess for obstructive sleep apnea as he would likely benefit from CPAP as this would help with blood pressure atrial
fibrillation and heart failure. Assess needs for home o2 but did not meet qualifications.
At this time cleared for discharge with outpatient follow-up with cardiology for atrial fibrillation RVR, heart failure. Follow-up with outpatient sleep medicine/pulmonary medicine for sleep study. Will also need outpatient follow-up with general
surgery for elective hernia repair. Outpatient follow-up with PCP.
Please stop drinking alcohol
Please get sleep study
Please take medication as prescribed and not miss a dose
CT AP
IMPRESSION:
1. Interval increase in size of a LARGE 14.6 cm SUPRAUMBILICAL MIDLINE ANTERIOR ABDOMINAL WALL HERNIA containing nonobstructed small bowel loops and fluid.
2. Mild small bowel distention both proximal and distal to the hernia which could be secondary to an infectious enteritis or ileus.
3. Moderate to severe diffuse hepatic steatosis.
4. Severe colonic diverticulosis.
5. Moderately enlarged prostate gland.
6. Mild cardiomegaly.
7. Severe discogenic degenerative disease at L5/S1.
Referrals:
Lebron Noel DO [Family Provider] -
Kimmy Platt DO [Active] - in less than 1 week
Bronson Coates MD [Active] - in one week
Tucker Oconnor MD [Active] - in two to three weeks
Prescriptions:
New
Eliquis 5 mg Tablet
5 mg PO BID 30 Days Qty: 60 0RF
dapagliflozin propanediol 10 mg Tablet
10 mg PO DAILY 30 Days Qty: 30 0RF
furosemide 40 mg Tablet
40 mg PO DAILY 30 Days Qty: 30 0RF
metoprolol succinate 50 mg Tablet Extended Release 24 Hr
75 mg PO BID 30 Days Qty: 60 0RF
thiamine HCl (vitamin B1) 100 mg Tablet
100 mg PO DAILY 30 Days Qty: 30 0RF
folic acid 1 mg Tablet
1 mg PO DAILY 30 Days Qty: 30 0RF
Continued
Eliquis 5 mg Tablet
5 mg PO BID 30 Days Qty: 60 0RF
furosemide 40 mg Tablet
40 mg PO DAILY 30 Days Qty: 30 0RF
metoprolol succinate 50 mg Tablet Extended Release 24 Hr
75 mg PO BID 30 Days Qty: 90 0RF
dapagliflozin propanediol [Farxiga] 10 mg Tablet
10 mg PO DAILY
Discharge Orders:
Discharge Patient (As Directed); Ordered 05/25/24
Ordered By: Geovany Manuel
Discharge Date and Time
Print Language: COMORAN
--- NOTE | 2024-05-25 16:23 | VNURNOTE ---
Home Health Liaison spoke with patient at 1615 to discuss [facility] nurse/therapy, visits, schedule and homebound status. Patient is agreeable and understands that visits at home will be 2-3 x per week to assess and teach medical management. Patient has
a scale and is able to log a daily weight but has not done so in past.
Patient is aware that [facility] will contact him for start of care in 1-2 days after discharge from .
[facility] referral completed in [facility].
--- NOTE | 2024-05-25 17:41 | PTCARENOTE ---
Rn flow lpn private duty- Patient left floor in wheelchair with to dc lounge.
== END 2024-05-25 18:03 | disposition home health service (06) | DRG 309 ==
LOC: 4 WEST ACU 14:45
PROVIDERS: Clinical Nurse Specialist Family Health; ADMITTING PHYSICIAN Hospitalist; CONSULT PHYSICIAN Internal Medicine Cardiovascular Disease; EMERGENCY PHYSICIAN Emergency Medicine; FAMILY PHYSICIAN Family Medicine
DX: I48.91 Unspecified atrial fibrillation (principal); I16.1 Hypertensive emergency; I50.20 Unspecified systolic (congestive) heart failure; Z68.41 Body mass index [BMI] 40.0-44.9, adult; I10 Essential (primary) hypertension; Z91.148 Patient's other noncompliance with medication regimen for other reason; I16.0 Hypertensive urgency; E66.01 Morbid (severe) obesity due to excess calories; I42.8 Other cardiomyopathies; I48.19 Other persistent atrial fibrillation; K42.9 Umbilical hernia without obstruction or gangrene; F10.10 Alcohol abuse, uncomplicated
CPT/HCPCS: 71045; 74177; 80048; 80053; 80306; 80307; 81003; 82010; 82077; 82977; 83036; 83735; 83880; 84100; 84484; 85025; 85027; 85610; 85730; 87070; 93005; 96374; 96375; 97161; 97166; 99291; Q9967

== ENCOUNTER 2025-08-21 10:13 | Inpatient (IN) | payer OTHER, SELFPAY ==
[2025-08-21] VITALS (25 sets, daily range): BP systolic 107–185; BP diastolic 75–171; BMI 42.6
[2025-08-21 06:50] LABS: Glucose - Point of Care 169 mg/dl (70-99)
--- NOTE | 2025-08-21 06:57 | ED.GENMED ---
History of Present Illness
General
Chief Complaint: Abdominal Pain
Source: patient and records
Exam Limitations: none
Time Seen by Provider: 08/21/25 06:53
Nursing documentation reviewed up to this point in time: agreed with
History of Present Illness
History of Present Illness:
60-year-old male with a past medical history of hypertension, CHF, atrial fibrillation on Eliquis who presents to the emergency department for evaluation of abdominal pain and nausea. Patient reports that he has been feeling unwell for the past 2
or 3 days. He says he has been feeling very weak very poor appetite. He says he has had diffuse abdominal pain and nausea. Has not been able to take any food�says that he vomits when he eats. He says symptoms were worsening over the weekend
rather than improving which prompted him to finally come to the ER this morning. He was noted to be markedly tachycardic on arrival�he says that he has a history of A-fib and he believes permanent A-fib, is on metoprolol and Eliquis reports
compliance but says that he vomited his medication this morning.
Past History
Past History
ED Past Medical History: Arrthythmia (A-fib), CHF, HTN and Psychiatric (Anxiety, Depression, prior history of substance abuse)
ED Past Surgical History: None
Social History
Tobacco: Non-smoker
Alcohol: Occasional
Drug: Former user
Personal: Single
Living: alone
Employment: Employed
Family History
Family History: Other (Noncontributory)
Review of Systems
Review of Systems
All Other Systems: ROS reviewed and negative except as documented in HPI and ROS
Constitutional: Reports fatigue; Denies fever
EENT: Denies sore throat or runny nose
Respiratory: Denies cough or trouble breathing
Cardiac: Reports palpitations; Denies chest pain
ABD/GI: Reports abdominal pain, nausea, vomiting and anorexia
: Denies flank pain
Musculoskeletal: Denies neck pain or back pain
Neurological: Denies headache
Phy Exam
Physical Exam
Physical Exam:
General: Awake, alert, appears uncomfortable
Head: Normocephalic, atraumatic
Eyes: Conjunctiva normal, sclera anicteric
Throat: Airway intact, dry mucous membranes
Neck: Trachea midline, supple without meningismus
Lungs: Clear to auscultation bilaterally, no wheezing, rales, rhonchi
Heart: Tachycardia with irregularly irregular rhythm, no murmurs, gallops, or rubs
Abd: Soft, mildly distended, diffusely tender; large umbilical hernia somewhat firm but was reducible, no overlying skin changes
Neuro: Grossly intact
Skin: No rash in area of concern
Extremities: Warm and well-perfused, trace edema in the legs
Scores
Heart Failure Risk
Heart Failure Risk Score: Not Applicable
Heart Score for Chest Pain Patients
STEMI patient?: Not applicable
Withdrawal Assessment of Alcohol
Withdrawal Assessment Completed?: Not applicable
Course
Orders/Labs/Results
Orders:
Orders
08/21/25 06:53
CR Abdomen, Portable - 1 View Urgent
Reason For Exam: abd pain
08/21/25 06:54
Electrocardiogram (*1) Urgent
Reason for Study: Abdominal Pain
CT Abd/pelvis W Iv Cont Urgent
Comment:
Reason For Exam: abd pain, N/V
EKG- Treatment ONCE
CR Chest Portable - 1 View Urgent
Comment:
Reason For Exam: abd pain, r/o free air
Reason Study Needs to be Portable: Unable to Transport
08/21/25 06:55
Urinalysis Reflex To Culture Urgent
0.9% Sodium Chloride 500 ml [Nss] 500 ml IV BOLUS
Metoprolol [Lopressor] 5 mg IV NOW STA
08/21/25 06:56
HYDROmorphone [Dilaudid] 0.5 mg IV NOW STA
Ondansetron Injectable [Zofran] 4 mg IV NOW STA
08/21/25 07:06
COVID-19 Antigen Urgent
Source: Nasal Swab
Complete Blood Count/With Diff Urgent
Comprehensive Metabolic Panel Urgent
Lactate Level [Lactic Acid] Urgent
Lipase Urgent
Magnesium Urgent
NT-proBNP Urgent
Troponin I Urgent
Influenza A+B Rapid Molecular Urgent
EZEKIEL Source: Nasal Swab
Specimen Description:
08/21/25 07:44
Blood Culture Q30M
EZEKIEL Source: Blood/Venous
Specimen Description:
Blood Culture Q30M
EZEKIEL Source: Blood/Venous
Specimen Description:
08/21/25 08:35
NG Tube [GI tube insertion- Treatment] ONCE
08/21/25 08:37
SURGICAL CONSULT Urgent
Consulting Provider: Balta Bustamante
Was physician already notified: Yes
0.9% Sodium Chloride 1000 ml [Nss] 1,000 ml IV BOLUS
HYDROmorphone [Dilaudid] 0.5 mg IV NOW STA
08/21/25 08:38
Diltiazem HCl [Cardizem] 10 mg IV NOW STA
08/21/25 09:24
CR Chest Portable - 1 View Urgent
Comment:
Reason For Exam: NG tube placement
Reason Study Needs to be Portable: Unable to Transport
08/21/25 09:30
Diltiazem 125 mg/125 ml Nss [Cardizem] 125 mg in 125 ml IV PER PROTOCOL
Initial dose in mg/hr, then titrate:: 5
Titrate to keep:: Heart rate 80-100 bpm
Titrate by mg/hr:: 5 mg/hr
Frequency of titrations (minutes):: 15
Maximum dose in mg/hr:: 15
08/21/25 09:33
Admit/Transfer Patient As Directed
Co-Sign Provider:
Level of Care: Inpatient admission
Assign to:: IMU- Intermediate Care
Physician / Group: Amanda Barrett
Diagnosis: SBO 2/2 ventral hernia, afib with RVR
Reason for Hospitalization: SBO 2/2 ventral hernia, afib with RVR
Expected length of stay greater than two midnights?: Yes
ELOS- Estimated Length of Stay in days: 4
I certify the patient meets the requirements for IP care: Yes
PRN Pain Medication Management As Directed
May give lesser potent ordered pain med per pt: Yes
preference::
Protocol:: Medication orders for pain may be administered in a
manner that supports deferring to patient preference
when the pt is:
- Requesting an ordered lesser potent pain medication.
Least to most potent pain medications are defined
as: acetaminophen < NSAID < tramadol < opioids
(morphine, oxycodone, hydromorphone).
- Requesting a lesser dose of the same medication IF
ORDERED.
- Requesting a less intrusive route of administration
if both routes are prescribed by the provider (PO <
IV).
08/21/25 09:34
Code Status As Directed
Resuscitation Status: Full Code
08/21/25 09:40
EKG [Electrocardiogram (*1)] Routine
Reason for Study: Atrial Fibrillation
Nursing to Place Non Medication Order As Directed
Physician Order: please repeat EKG when HR is better controlled
08/21/25 14:04
Type+Screen Urgent
BBK Wristband Number:
Lactate Level [Lactic Acid] Q6H
Abnormal Lab Results
08/21/25 08/21/25
06:49 07:06
WBC 15.3 H 10^3/uL
(4.8-10.8)
Hgb 19.7 H g/dL
(13.0-18.0)
Hct 55.0 H %
(39.0-52.0)
MCH 33.1 H pg
(27.0-31.0)
Abs Immat Gran (auto) 0.1 H 10^3/uL
(0-0.05)
Absolute Neuts (auto) 12.5 H 10^3/uL
(1.4-6.5)
Absolute Monos (auto) 1.0 H 10^3/uL
(0.1-0.6)
Neutrophils % 82.1 H %
(42.2-75.2)
Lymphocytes % 10.7 L %
(20.5-51.1)
BUN 30 H mg/dl
(9-20)
Creatinine 1.7 H mg/dL
(0.7-1.3)
Glucose 176 H mg/dl
(70-99)
Lactic Acid 3.1 H mmol/L
(0.7-2.0)
Calcium 10.6 H mg/dl
(8.4-10.2)
Total Bilirubin 1.5 H mg/dl
(0.2-1.3)
Alkaline Phosphatase 139 H U/L
(38-126)
Total Protein 8.7 H g/dl
(6.3-8.2)
Albumin 5.1 H g/dl
(3.5-5.0)
POC Glucose 169 H mg/dl
(70-99)
08/21/25 07:06
08/21/25 07:06
Vital Signs
Initial and Last Documented VS:
Initial Vital Signs
Temp Pulse Resp Pulse Ox
36.6 C 54 28 92
08/21/25 06:42 08/21/25 06:42 08/21/25 06:42 08/21/25 06:42
Last Documented Vital Signs
Temp Pulse Resp BP Pulse Ox
36.6 C 114 33 160/86 94
08/21/25 07:21 08/21/25 14:00 08/21/25 09:30 08/21/25 13:30 08/21/25 14:00
MDM/Problems Addressed
Differential Diagnosis Includes:
Wide differential diagnosis includes but not limited to: Cholelithiasis, cholecystitis, pancreatitis, bowel obstruction, gastritis/enteritis; less likely anginal equivalent, symptomatic A-fib a consideration although would not account for abdominal
pains suspect rapid A-fib is a result of symptoms rather than the cause
MDM/Problems Addressed:
60-year-old male presents for evaluation of abdominal pain, poor appetite with nausea and vomiting for the past few days. He is tachycardic, mild tachypnea but normotensive, no fever, no hypoxia. Physical exam as noted. Accu-Chek acceptable.
Plan to place large-bore IV, send labs including CBC and a CMP, lipase. Check lactate. Will check stat chest x-ray and abdominal x-ray to rule out free air. Will check CT abdomen pelvis. Although he does have a history of CHF he examines his
hypovolemic and is reporting poor p.o. intake with vomiting�will provide IV fluids. Low-dose Lopressor for rate control given his rapid atrial fibrillation�will rate control somewhat cautiously as his expect some of his tachycardia is related to
pain and hypovolemia. Monitor very closely with frequent reassessments.
Labs reviewed: CBC shows leukocytosis to 15.3. Chemistry shows MIRACLE with creatinine of 1.7. Lactate is elevated at 3.1. Chest x-ray shows no free air, abdominal x-ray shows signs concerning for small bowel obstruction. Proceed with CT. Provide
fluids.
CT shows findings consistent with a small bowel obstruction secondary to large ventral hernia containing multiple loops of small bowel. Mild mesenteric edema but no pneumatosis.
General surgery evaluated at bedside agree that hernia is reducible, suspect lactate more from hypovolemia than true ischemia. Continue resuscitative efforts, plan for likely OR tomorrow unless change in clinical status. Hospitalist at bedside
admitting.
Chronic conditions affecting care:
A-fib, CHF
*Radiology
Radiology exam reviewed: preliminary read by ED provider and radiology read reviewed
*Pulse Oximetry
SaO2: 92
Patient hypoxic: no (92%)
*EKG
Interpreted by ED Provider?: Yes
Heart Rate: 159
Rate: tachycardiac
Rhythm: a-fib
[place]: normal axis
Interval: normal interval
QRS Pattern: normal QRS
Ischemia: non-specific ST changes
*Critical Care Note
Total Time (30-74mins, 75-104mins- exclusive of procedures): 36
comment:
Critical care statement: A total of 36 minutes of critical care time was provided for this patient. This includes management of unstable vital signs, evaluation of the patient at bedside, frequent reassessment, discussion with
consultants/hospitalist, and review of pertinent medical records. This time was separate from time utilized to perform any aforementioned documented procedures
Data Reviewed
Review of Other/Old Records Reveals: Labs and Records
Source: patient and records
Patient Management
Discussion with other providers: Hospitalist (Discussed with hospitalist)
Escalation/DeEscalation of care consider admission/obs:
Admission indicated
ED Attending Note
-
Portions of this chart may have been created with voice recognition software.� Occasional wrong word or��sound alike� substitutions may have occurred due to the inherent limitations of voice recognition software.
Discharge Plan
Departure
Patient Disposition: Admit
Date of Disposition: 08/21/25
Time of Disposition: 08:46
Admit to doctor: Kaleb
Presentation/result/management discussed w/ accepting MD/DO: Hospitalist
Discharge Problem:
Small bowel obstruction, Ventral hernia, Atrial fibrillation with RVR, MIRACLE (acute kidney injury)
Interventions
Interventions:
*Risk Screen - Suicide Last Done: 08/21/25 06:54
*General Assessment Last Done: 08/21/25 06:54
*Neglect/Abuse Screening Last Done: 08/21/25 06:54
*ED- Fall Risk Assessment Last Done: 08/21/25 06:54
*ED COVID-19 Vaccine History Last Done: 08/21/25 06:54
AI-Pkrtii-Cpjlphtegn Assessment Last Done: 08/21/25 06:54
[2025-08-21] MEDS: NSS 500 IV (07:17)
[2025-08-21] MEDS: LOPRESSOR 5 MG IV (07:18)
[2025-08-21] MEDS: ZOFRAN 4 MG IV (07:18)
[2025-08-21] MEDS: DILAUDID 0.5 MG IV ×2 (07:18→08:56)
[2025-08-21 07:33] LABS: Hematocrit 55.0 % (39.0-52.0); Hemoglobin 19.7 g/dL (13.0-18.0); Mean Corp Hgb Conc. 35.8 g/dL (33.0-37.0); Mean Corpuscular Volume 92.4 fL (80.0-94.0); Nucleated Red Blood Cells % 0 % (-); Platelet Count 281 10^3/uL (130-400); Red Cell Dist. Width 13.2 % (11.5-14.5)
[2025-08-21 07:52] LABS: Troponin I 0.021 ng/ml
[2025-08-21 07:56] LABS: ALT (SGPT) 46 U/L (0-50); AST (SGOT) 39 U/L (17-59); Albumin 5.1 g/dl (3.5-5.0); Blood Urea Nitrogen 30 mg/dl (9-20); Carbon Dioxide 24 mmol/L (22-30); Estimated Creatinine Clearance 62 ml/min; Glucose 176 mg/dl (70-99); Lipase 114 U/L (23-300); Magnesium 2.2 mg/dl (1.6-2.3); Potassium 4.4 mmol/L (3.5-5.1); Sodium 139 mmol/L (135-145); Total Protein 8.7 g/dl (6.3-8.2); eGFR 45.02
[2025-08-21 07:59] LABS: COVID-19 Antigen Negative (Negative)
[2025-08-21 08:10] LABS: Alkaline Phosphatase 139 U/L (38-126); Calcium 10.6 mg/dl (8.4-10.2); Chloride 99 mmol/L (98-107)
[2025-08-21] MEDS: NSS 1000 IV (08:56)
[2025-08-21] MEDS: CARDIZEM 10 MG IV (08:56)
--- NOTE | 2025-08-21 08:57 | HPS.HSE ---
Family Physician
-
Family Physician: Lebron Noel
Chief Complaint
-
abdominal pain and nausea
History of Present Illness
Mr. 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
Patient states pain started on Thursday afternoon. He had vomiting. Pain persisted and so he came to the ER today. No fevers/chills. He had a BM yesterday.
He had chest discomfort in seting of vomiting that is now resolved. Reports he had similar episodes before.
No LE swelling. No shortness of breath.
Medical History
Past Medical History
Past Medical History: Reports Other
Additional Past Medical History:
f A-fib with acute on chronic RVR
CHF with reduced E
, HTN
anxiety/depression
prior history of substance abuse
obesity,
prior history alcohol abuse
Chronic umbilical hernia
Past Surgical History: Reports Other (Cardiac cath 2021 no intervention)
Additional Past Surgical History:
Cardiac cath 2023 no intervention
Social History
Tobacco: Non-smoker
Alcohol: Occasional (occasional binge drinking )
Drug: None
Personal: Single
Living: Alone
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
Family History
Family History: Not pertinent
Allergies / Home Medications
Allergies reflects when Allergies were last updated in [facility] [employer].
Home Medications with original date entered in [facility] [employer]
Allergy/Medication List:
Allergies
Allergy/AdvReac Type Severity Reaction Status Date / Time
No Known Allergies Allergy Verified 03/17/24 02:18
Home Medications
furosemide 40 mg tablet 40 mg PO DAILY 30 days #30 tabs 03/23/24
dapagliflozin propanediol 10 mg tablet (Farxiga) 10 mg PO DAILY Heart Failure 05/23/24
apixaban 5 mg tablet (Eliquis) 5 mg PO BID 30 days #60 tabs 05/25/24
folic acid 1 mg tablet 1 mg PO DAILY 30 days #30 tabs 05/25/24
metoprolol succinate 50 mg tablet,extended release 24 hr 75 mg (1.5 x 50 mg) PO BID 30 days #60 tabs 05/25/24
thiamine HCl (vitamin B1) 100 mg tablet 100 mg PO DAILY 30 days #30 tabs 05/25/24
Review of Systems
-
History Source: Patient
A 12 point ROS was completed and negative except as noted: Yes
Physical Exam
Vital Signs
Vital Signs
Temp Pulse Resp BP Pulse Ox
97.8 F 120 11 168/114 93
08/21/25 07:21 08/21/25 08:15 08/21/25 08:15 08/21/25 08:08 08/21/25 08:15
Physical Exam
General: Conversant
HEENT: PERRLA and Other (NGT in )
Respiratory: Clear; No Wheezes
Cardiac: Irregular Rhythm; No JVD
GI: Other (no rebound or guarding, tenderness with palpation of lower quadrants )
Musculoskeletal: No Edema
Skin: Warm and Dry; No Rash
Neuro: AO x 3
Psych: Calm
Laboratory Results
-
08/21/25 07:06
08/21/25 07:06
Laboratory Results
Lactic Acid 3.1 mmol/L (0.7-2.0) H 08/21/25 07:06
Total Bilirubin 1.5 mg/dl (0.2-1.3) H 08/21/25 07:06
AST 39 U/L (17-59) 08/21/25 07:06
ALT 46 U/L (0-50) 08/21/25 07:06
Alkaline Phosphatase 139 U/L (38-126) H 08/21/25 07:06
Troponin I 0.021 ng/ml 08/21/25 07:06
Lipase 114 U/L (23-300) 08/21/25 07:06
Data Reviewed
-
Diagnostic Radiology: Report Reviewed by me
Lab Data: Labs Reviewed by me
Impression/Plan
-
Mr. 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
Triage VS: T 36.6 C, P 54 up to 120, RR 28, Spo2 92%
LABS: WBC 15.3, Hg 19.7, PLT 281, Na 139, K+ 4.4, CO2 24, Cr 1.7, Glucose 176, Lactate 3.1, T. Bili 1.5, AST 39, ALT 46, Alk Phos 139
BNP 2990, Trop 0.021
EKG: afib with RVR, ST depressions lateral leads
Abdomen X-Ray
IMPRESSION:
Findings suspicious for small bowel obstruction.
CT A/P
IMPRESSION:
1. Findings compatible with small bowel obstruction secondary to large ventral hernia which contains multiple loops of small bowel. Dilated small bowel loops measuring up to 4.5 cm with mild mesenteric edema. No pneumatosis or portal venous gas.
2. Hepatic steatosis.
3. Additional findings above.
CXR
IMPRESSION:
Mildly increased interstitial markings bilaterally, nonspecific. This may be a chronic finding versus mild interstitial edema. No focal airspace disease. No large effusions.
Mild cardiomegaly.
MAR: NS 1.5L, IV Zofran, IV Metop, IV Dilaudid, IV Diltiazem
SBO 2/2 large ventral hernia
SIRS 2/2 above
Lactic Acidosis
-CT results above, no pneumatosis or portal venous gas; on exam hernia reducible.
-discussed plan with surgery and plan is for OR either later today or tomorrow
-admit to IMU
-NPO
-NGT
-LR @ 70
-pain control
-IV Zofran PRN
Atrial Fibrillation with RVR
Persistent Atrial Fibrillation
Abnl EKG
-patient is on Metop 75 XL BID at home
-keep NPO
-IV Dilt gtt with goal HR 80-100
-repeat EKG when HR better controlled
-hold THERAPEUTIC ASSISTANT Eliquis pre surgery
Nonischemic cardiomyopathy
-TTE 03/16 with EF 40%, global hypokinesis
-patient with cardiac cath 2021 without significant CAD
-he is on Lasix 40mg PO QD at home, hold
-hold THERAPEUTIC ASSISTANT Farxiga
-monitor volume status closely while receiving IVF
Hx Alcohol use, patient is not a daily drinker. Last drink was 6 days ago and he goes many days without drinking
Acute Kidney Injury
-IVF as above
Essential HTN - hod Metoprolol
Hyperlipidemia
DVT PPx SCD
FULL CODE
76 minutes spent on patient care
[2025-08-21] MEDS: CARDIZEM 125 IV ×2 (09:40→19:49)
--- NOTE | 2025-08-21 11:54 | EDCM ---
CM reviewed chart and met with pt bedside in ED. He rents a room in split level home, 7 [address], 8 steps to bedroom and full bath.
Independent in ADLs, personal care and ambulation. Pt does not drive, was given information for [facility] last year when admitted, he did not follow up. No local family, sister lives in [place].
Confirms prescription coverage.
Hx [facility], no hx SNF.
PCP: Lebron Noel
Pharmacy: [facility]
CM will continue to follow for any discharge planning needs.
--- NOTE | 2025-08-21 12:00 | CON.GS ---
Addendum entered and electronically signed by Balta Bustamante MD 08/21/25 18:40:
This is a 60-year-old male with a history of atrial fibrillation on Eliquis, heart failure, nonischemic cardiomyopathy, morbid obesity, who presents with small bowel obstruction secondary to a supraumbilical ventral hernia. Thankfully reducible on
exam. NG tube placed.
Tentatively added on for tomorrow for a robotic ventral hernia repair with mesh.
N.p.o., NG tube to low intermittent wall suction.
Can hold off antibiotics for now.
Hold anticoagulation, okay for heparin drip if deemed necessary per primary.
Agree with transfer of care to the IMU given patient's multiple comorbidities.
Risks/Benefits/Alternatives, expected postoperative course and possible complications (bleeding, infection, injury to surrounding structures, acute/chronic pain) discussed at length. Patient wishes to proceed with surgery. All questions answered.
Consent obtained.
I spent 75 minutes in total for the care of this patient today including direct patient care and counseling, reviewing labs, imaging, coordination of care, as well as documentation.
Original Note:
Consultation
-
Date/Time Consultation Performed: 08/21/25 1115
Medical History
-
Chief Complaint: n/v/pain
History of Present Illness:
60 yo male with a h/o AFib on Eliquis (LD 9 pm), HFrEF (40% on echo in 2023), nonischemic CM, morbid obesity and supraumbilical/ventral hernia noted on imaging in 2023 when he was admitted for diverticulitis and CHF exacerbation (outpatient
follow up recommended at that time) who presents with upper abdominal pain which began 2 days ago and has worsened accompanied by nausea and vomiting. He notes passing a BM yesterday which did not relieve his symptoms. He took his cardiac
medications yesterday in the afternoon, but vomited shortly thereafter. As his symptoms did not improve, he presents today through the ED for evaluation. On exam, there is a ventral hernia present which is mildly tender, soft and reducible. NGT in
place with bilious outputs. Since placement of NGT, he has had improvement in nausea and pain.
Past Medical History
Past Medical History: Arrhythmias (Afib on Eliquis (LD 08/20/25 0330)), CHF (HFrEF, nonischemic CM), Diverticulitis and Other (supraumbilical/ventral hernia, Morbid obesity, BPH, DDD)
Past Surgical History: Cardiac (cardiac cath 2021, no intervention)
Social History
Tobacco: Smoker
Alcohol: Former
Personal: Single
Living: With Roomate (rents a room)
Family History
Family History: Reviewed & Not Pertinent
Allergies / Home Medications
Allergy/AdvReac Type Severity Reaction Status Date / Time
No Known Allergies Allergy Verified 03/17/24 02:18
�Medication �Instructions �Recorded �Confirmed �Type
dapagliflozin propanediol 10 mg 10 mg PO DAILY Heart Failure 05/23/24 08/21/25 History
tablet (Farxiga)
apixaban 5 mg tablet (Eliquis) 5 mg PO BID Blood Clot 08/21/25 08/21/25 History
Prevention/Tx
folic acid 1 mg tablet 1 mg PO DAILY Supplement 08/21/25 08/21/25 History
furosemide 40 mg tablet 40 mg PO DAILY Fluid 08/21/25 08/21/25 History
Retention/Swelling
metoprolol succinate 50 mg 75 mg PO BID Heart Failure 08/21/25 08/21/25 History
tablet,extended release 24 hr
thiamine HCl (vitamin B1) 100 mg 100 mg PO DAILY Supplement 08/21/25 08/21/25 History
tablet
Review of Systems
-
History Source: Patient
All other systems: Negative unless noted
A 10 point review of systems was completed, and was negative except as per HPI.
Physical Exam
Vital Signs
Temp Pulse Resp BP Pulse Ox
97.8 F 114 33 159/108 92
08/21/25 07:21 08/21/25 10:45 08/21/25 09:30 08/21/25 10:45 08/21/25 10:45
08/20/25 08/21/25 08/22/25
06:59 06:59 06:59
Actual Weight 134.6 kg 135.1 kg
Body Mass Index (BMI) 42.6
Lab Results
08/21/25 07:06
08/21/25 07:06
WBC 15.3 10^3/uL (4.8-10.8) H 08/21/25 07:06
Hgb 19.7 g/dL (13.0-18.0) H 08/21/25 07:06
Hct 55.0 % (39.0-52.0) H 08/21/25 07:06
Plt Count 281 10^3/uL (130-400) 08/21/25 07:06
Abs Immat Gran (auto) 0.1 10^3/uL (0-0.05) H 08/21/25 07:06
Neutrophils % 82.1 % (42.2-75.2) H 08/21/25 07:06
Physical Exam
General: Negative Comfortable
HEENT: Moist Mucous Membranes
GI: Soft, Tender (upper abdominal), Distended, Obese and Other (ventral/supraumbilical hernia soft/reducible but immediately recurs)
Neuro: Awake, Alert and AO x 3
Psych: Calm
Data Reviewed
-
CT Scan: Image Personally Visualized and interpreted, Report Reviewed by me, Discussed with Physician, Discussed with Patient and Discussed with Family
Labs: Labs Reviewed by me, Discussed with Physician, Discussed with Patient and Discussed with Family
Old Records: Reviewed
Assessment / Plan
-
60 yo male with a h/o AFib on Eliquis (LD 08/20 pm, but vomited immediately after taking), HFrEF (40% on echo in 2023), nonischemic CM, morbid obesity and known supraumbilical/ventral hernia who presents with upper abdominal pain which began 2 days
ago and has worsened accompanied by nausea and vomiting. CT imaging consistent with SBO secondary to his large ventral hernia which contains loops of small bowel. Does not appear to be incarcerated/strangulated. No pneumatosis present. The hernia is
soft and reducible on exam although tender. Tachycardia present with Afib/RVR. BP elevated. NGT with bilious outputs. Some symptomatic relief with ngt decompression. CXR shows the ngt is well positioned.
Plan:
NPO with ice chips for comfort
Continue NGT decompression
Hold PO Eliquis
Analgesics/antiemetics prn
Appreciate hospitalistTony initiated in ED for rate control
Anticipate tentative OR tomorrow after Eliquis washout for hernia repair
[2025-08-21] MEDS: LR 1000 IV (17:10)
--- NOTE | 2025-08-21 17:30 | PTCARENOTE ---
Patient received from the ED. AAO, VSS. Some complaints of pain but more so of thirst. Strict NPO. Left nare NG tube to low intermittent suction. Admission questions done. Skin check done with 2nd RN. Oriented to room. Likely to the OR
tomorrow.
[2025-08-22] VITALS (29 sets, daily range): BP systolic 15–187; BP diastolic 56–126; BMI 41.9
--- NOTE | 2025-08-22 01:57 | PTCARENOTE ---
Pt continues with NGT to LIS. Draining green drainage. Hygiene care performed with assistx1. BPs elevated, LIQUOR CLERK notified. Call cedeño within reach. Care ongoing.
[2025-08-22 05:35] LABS: Hematocrit 47.2 % (39.0-52.0); Hemoglobin 16.1 g/dL (13.0-18.0); Mean Corp Hgb Conc. 34.1 g/dL (33.0-37.0); Mean Corpuscular Volume 96.5 fL (80.0-94.0); Nucleated Red Blood Cells % 0 % (-); Platelet Count 194 10^3/uL (130-400); Red Cell Dist. Width 13.3 % (11.5-14.5)
[2025-08-22 05:43] LABS: ALT (SGPT) 39 U/L (0-50); AST (SGOT) 34 U/L (17-59); Albumin 4.2 g/dl (3.5-5.0); Alkaline Phosphatase 114 U/L (38-126); Blood Urea Nitrogen 27 mg/dl (9-20); Calcium 8.7 mg/dl (8.4-10.2); Carbon Dioxide 27 mmol/L (22-30); Chloride 105 mmol/L (98-107); Estimated Creatinine Clearance 81 ml/min; Glucose 119 mg/dl (70-99); Magnesium 2.0 mg/dl (1.6-2.3); Potassium 3.7 mmol/L (3.5-5.1); Sodium 141 mmol/L (135-145); Total Protein 6.9 g/dl (6.3-8.2); eGFR > 60.00
--- NOTE | 2025-08-22 07:01 | W.PN.GS2 ---
Today's Communication / Plan
-
-- RAL ventral hernia repair with mesh, possible SBR
-- Abx: Ancef
Assessment / Plan
-
Patient is a 60 yo M p/w symptomatic ventral hernia with component of SBO
The natural history and pathophysiology of abdominal hernias was briefly reviewed. Options for management were reviewed. Specifically, we discussed a watchful waiting approach versus surgical management. He is at increased risk for operative
complications given his heart history, active anticoagulation, and morbid obesity. Given his current obstruction, as well as prior episodes and symptoms, recommend and plan for repair.
Plan for a robotic ventral hernia repair with mesh, possible bowel resection. The procedure itself, as well as the risks, benefits, and alternatives was discussed. Specifically, we discussed the risks of bleeding, infection, injury to surrounding
structures (bowel), wound complications, recurrence, and general anesthetic complications. Typical postprocedural recovery was discussed. We discussed that he will have a drain postoperatively. We discussed use of an abdominal binder
postoperatively. All questions answered. Consent signed.
-- RAL ventral hernia repair with mesh, possible SBR
-- NPO, IVF, NGT decompression
-- Abx: Ancef
-- Continue to hold Eliquis
Subjective Data
-
Date of Service: August 22, 2025
Reports feeling thirsty as a 'emergency'. Denies nausea or vomiting. Passing flatus, and small BM since admission. Has had issues with discomfort related to his hernia in the past. Known hernia for years. Reports prior episodes of obstructions.
Current symptoms began approximately 3 days ago. Last dose of Eliquis was on Thursday.
Objective Data
-
Intake and Output
08/21/25 08/22/25 08/23/25
06:59 06:59 06:59
Output Total 1150 / 1150
Balance -1150 / -1150
Output:
Drain Output (Total) 1000 / 1000
Urine, Voided 150 / 150
Vital Signs
Temp Pulse Resp BP Pulse Ox
97.7 F 94 16 156/97 94
08/22/25 04:27 08/22/25 04:02 08/22/25 04:02 08/22/25 04:02 08/22/25 04:02
Lab Results
08/22/25 04:57
08/22/25 04:57
Calcium 8.7 mg/dl (8.4-10.2) D 08/22/25 04:57
Magnesium 2.0 mg/dl (1.6-2.3) 08/22/25 04:57
Total Bilirubin 1.6 mg/dl (0.2-1.3) H 08/22/25 04:57
AST 34 U/L (17-59) 08/22/25 04:57
ALT 39 U/L (0-50) 08/22/25 04:57
Alkaline Phosphatase 114 U/L (38-126) 08/22/25 04:57
Total Protein 6.9 g/dl (6.3-8.2) D 08/22/25 04:57
Albumin 4.2 g/dl (3.5-5.0) 08/22/25 04:57
Physical Exam
-
Gen: NAD
HEENT; clear output from NGT
Abd: obese, soft, mild tenderness overlying raul-umbilical hernia, no skin changes. soft, partially reduced, fascial defect 5 cm
Patient has a baez catheter: No
Patient has a central line: No
--- NOTE | 2025-08-22 07:09 | W.SUR.PREOP ---
Pre-Operative Surgical Note
-
I have examined this patient prior to the performance of the scheduled procedure.
The patient's condition is unchanged from the time of the current History and
Physical and the patient is able to undergo the scheduled procedure.
[2025-08-22] MEDS: LR 1000 IV (08:21)
[2025-08-22] MEDS: CARDIZEM 125 IV ×2 (08:21→17:34)
--- NOTE | 2025-08-22 08:34 | W.PN.HOSP.TC ---
Addendum entered and electronically signed by Amanda Barrett MD 08/22/25 09:11:
suspect contaminant in blood cultures
leukocytosis resolved
repeat cultures
start antibiotics if fevers
Original Note:
Today's Communication/Plan
-
NPO for OR
Assessment / Plan
Assessment / Plan
Mr. 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
EKG: afib with RVR, ST depressions lateral leads
Abdomen X-Ray
IMPRESSION:
Findings suspicious for small bowel obstruction.
CT A/P
IMPRESSION:
1. Findings compatible with small bowel obstruction secondary to large ventral hernia which contains multiple loops of small bowel. Dilated small bowel loops measuring up to 4.5 cm with mild mesenteric edema. No pneumatosis or portal venous gas.
2. Hepatic steatosis.
3. Additional findings above.
CXR
IMPRESSION:
Mildly increased interstitial markings bilaterally, nonspecific. This may be a chronic finding versus mild interstitial edema. No focal airspace disease. No large effusions.
Mild cardiomegaly.
MAR: NS 1.5L, IV Zofran, IV Metop, IV Dilaudid, IV Diltiazem
SBO 2/2 large ventral hernia
SIRS 2/2 above
Lactic Acidosis
-CT results above, no pneumatosis or portal venous gas; on exam hernia reducible.
-discussed plan with surgery and plan is for OR this morning
-monitor in IMU
-NPO
-NGT
-LR @ 70
-pain control
-IV Zofran PRN
-lactic acidosis resolved
-leukocytosis resolved
Atrial Fibrillation with RVR
Persistent Atrial Fibrillation
Abnl EKG
-patient is on Metop 75 XL BID at home
-keep NPO
-IV Dilt gtt with goal HR 80-100 while off home Metop
-repeat EKG when HR better controlled --> ST depressions resolved, I do not appreciate any ROSALIA
-hold [employer] ASS[employer] Eliquis pre surgery
Nonischemic cardiomyopathy
-TTE 03/16 with EF 40%, global hypokinesis
-patient with cardiac cath 2021 without significant CAD
-he is on Lasix 40mg PO QD at home, hold
-hold [employer] Farxiga
-monitor volume status closely while receiving IVF
Hx Alcohol use, patient is not a daily drinker. Last drink was 6 days ago and he goes many days without drinking
Acute Kidney Injury
-IVF as above, now resolved
Essential HTN - hold Metoprolol
Hyperlipidemia
DVT PPx SCD
FULL CODE
76 minutes spent on patient care
Anticipated Discharge: > 48 hours
Subjective/Interval History
-
Date of Service: August 22, 2025
seen before surgery,
mouth is dry and he's anxious
otherwise doing okay
HR's are better
Objective Data
-
Labs:
Laboratory Results
08/22/25
04:57
WBC 9.8
Hgb 16.1
Hct 47.2
Plt Count 194 D
Sodium 141
Potassium 3.7
Chloride 105
Carbon Dioxide 27
BUN 27 H
Creatinine 1.3
Glucose 119 H
Calcium 8.7 D
Total Bilirubin 1.6 H
AST 34
ALT 39
Alkaline Phosphatase 114
Vital Signs:
Vital Signs
Temp Pulse Resp BP Pulse Ox
97.7 F 94 16 156/97 94
08/22/25 04:27 08/22/25 04:02 08/22/25 04:02 08/22/25 04:02 08/22/25 04:02
I&O
08/21/25 08/22/25 08/23/25
06:59 06:59 06:59
Output Total 1150 / 1150
Balance -1150 / -1150
Review of Systems
-
History Source: Patient
All other systems: Reviewed and negative
Physical Exam
-
General: No Apparent Distress
HEENT: PERRLA
Respiratory: Clear to Auscultation; Negative Wheezes
Cardiac: S1/S2 and Irregular Rhythm
GI: Soft and Nontender
Musculoskeletal: No Edema
Skin: Warm and Dry; Negative Rash
Neuro: AO x 3
Psych: Calm
Data Reviewed
-
Diagnostic Radiology: Report Reviewed by me
Labs: Labs Reviewed by me
--- NOTE | 2025-08-22 10:16 | PTCARENOTE ---
pt left floor for OR. report given to Joan. first set of blood cultures drawn before or. unable to obtain second set.
--- NOTE | 2025-08-22 12:09 | W.IMMPOSTOP ---
Surgical Immed Post Op Note
-
Primary Surgeon: Marc
Assisting Surgeon: None
Pre-op Diagnosis: Ventral and umbilical hernia
Post-op Diagnosis: Ventral and umbilical hernia
Procedure Performed: Robotic ventral and umbilical hernia repair with mesh, modifier 22 for obesity
Anesthesia Type: General
Specimen / Cultures: None
Estimated Blood Loss: 3 cc
Complications: None
Operative Findings:
1. Ventral hernia with small bowel easily reduced (healthy and viable), fascial defect 4 x 5 cm
2. Umbilical hernia with separate fascial defect 1 cm
3. Primary fascial closure with #1 Stratafix symmetric under little tension, vertical total length [address] 10 x 15 cm mesh IPOM
5. Hernia sac excised, 19 Fr drain into hernia space
[2025-08-22] MEDS: DILAUDID 0.5 MG IV ×2 (15:42→20:11)
--- NOTE | 2025-08-22 16:11 | PTCARENOTE ---
recieved pt from pacu approx 1420. pt awake, oriented. on 4 liters o2 with sats 97%. occasional non productive cough. afib on monitor rate of 100. cardizem drip infusing at 15 mg/hr. lap sites and gauze on abdomen intact with no drainage. grey intact
to right abdomen to bulb suction. ng tube to low intermittent suction draining brown fluid. npo maintained with small amounts ice chips given . urinal at bedside. pt medicated with 0.5 mg dilaudid for incisional pain level 7 with good relief
reported by patient.
--- NOTE | 2025-08-22 16:56 | CM ---
Following up on Patient. RN stated patient is in the O.R. for Hernia repair so not medically ready yet.
PLAN: Anticipate Home No Needs
[2025-08-22] MEDS: LOVENOX 40 MG SC (17:32)
[2025-08-22] MEDS: LR IV (21:43)
[2025-08-23] VITALS (17 sets, daily range): BP systolic 144–201; BP diastolic 92–147; BMI 42.1; BMI 42.5
[2025-08-23] MEDS: DILAUDID 0.5 MG IV ×4 (01:54→22:47)
[2025-08-23 02:19] LABS: Urine Character Clear (Clear)
[2025-08-23 03:18] LABS: Urine Red Blood Cell 0-2 /HPF (0-2); Urine Squamous Cell 0-2 /LPF (Few); Urine White Cell 0-2 /HPF (0-5)
[2025-08-23 05:51] LABS: Hematocrit 46.7 % (39.0-52.0); Hemoglobin 15.7 g/dL (13.0-18.0); Mean Corp Hgb Conc. 33.6 g/dL (33.0-37.0); Mean Corpuscular Volume 99.8 fL (80.0-94.0); Nucleated Red Blood Cells % 0 % (-); Platelet Count 199 10^3/uL (130-400); Red Cell Dist. Width 13.2 % (11.5-14.5)
[2025-08-23 06:13] LABS: Blood Urea Nitrogen 25 mg/dl (9-20); Calcium 8.6 mg/dl (8.4-10.2); Carbon Dioxide 32 mmol/L (22-30); Chloride 102 mmol/L (98-107); Estimated Creatinine Clearance 81 ml/min; Glucose 128 mg/dl (70-99); Magnesium 2.4 mg/dl (1.6-2.3); Potassium 4.1 mmol/L (3.5-5.1); Sodium 141 mmol/L (135-145); eGFR > 60.00
--- NOTE | 2025-08-23 06:32 | PTCARENOTE ---
Caring for pt overnight. aaox3, pleasant. PostOP#1, incisions CDI, DAT drain in place drained 10cc overnight. NGT in place, no flush order, drained 200cc clear brown. Not passing gas, hiccups occasionally, slight nausea on and off. NPO with sips and
chips. 8/10 pain, dilaudid given. abdominal binder in place. BPs running high, asymptomatic. IVF running. Amio running at 5ml. Remains controlled afib 80bpm. Will monitor.
[2025-08-23] MEDS: PROTONIX IV 40 MG IV (07:50)
--- NOTE | 2025-08-23 08:17 | W.PN.HOSP.TC ---
Today's Communication/Plan
-
resume Metop, wean Dilt gtt as able
NGT, IVF
DVT PPx, holding Eliquis until OK by surgery
appreciate surgery
Assessment / Plan
Assessment / Plan
Mr. Mark Saenz is a 60 yo man with hx essential HTN, HFmrEF (40%), persistent atrial fibrillation, presents to the ER with abdominal pain found to have SBO in setting of large ventral hernia.
Abdomen X-Ray
IMPRESSION:
Findings suspicious for small bowel obstruction.
CT A/P
IMPRESSION:
1. Findings compatible with small bowel obstruction secondary to large ventral hernia which contains multiple loops of small bowel. Dilated small bowel loops measuring up to 4.5 cm with mild mesenteric edema. No pneumatosis or portal venous gas.
2. Hepatic steatosis.
3. Additional findings above.
CXR
IMPRESSION:
Mildly increased interstitial markings bilaterally, nonspecific. This may be a chronic finding versus mild interstitial edema. No focal airspace disease. No large effusions.
Mild cardiomegaly.
OR 08/22/25
PROCEDURE: Robotic ventral and umbilical hernia repair with mesh,
modifier 22 for severe obesity.
SBO 2/2 large ventral hernia
SIRS 2/2 above
Lactic Acidosis
-CT results above, no pneumatosis or portal venous gas; on exam hernia reducible.
-now s/p robotic ventral and umbilical hernia repair with mesh; modified 2/2 obesity; small bowel easily reducible -
-monitor in IMU while on IV Dilt gtt
-NPO
-NGT
-LR @ 70
-pain control
-IV Zofran PRN
-lactic acidosis resolved
-leukocytosis resolved
-appreciate surgery
Atrial Fibrillation with RVR
Persistent Atrial Fibrillation
Abnl EKG - -repeated EKG when HR better controlled --> ST depressions resolved
-patient is on Metop 75 XL BID at home --> resume (hold suction for one hour post) and wean off Dilt gtt
-keep NPO
-resume Eliquis when OK with surgery
Nonischemic cardiomyopathy
-TTE 03/16 with EF 40%, global hypokinesis
-patient with cardiac cath 2021 without significant CAD
-he is on Lasix 40mg PO QD at home, hold
-hold [employer] Farxiga
-monitor volume status closely while receiving IVF
Hx Alcohol use, patient is not a daily drinker. Last drink was 6 days ago and he goes many days without drinking
Acute Kidney Injury
-IVF as above, now resolved
Essential HTN - hold Metoprolol
Hyperlipidemia
DVT PPx Lovenox subQ
FULL CODE
51 minutes spent on patient care
Anticipated Discharge: > 48 hours
Subjective/Interval History
-
Date of Service: August 23, 2025
some abdominal pain post surgery
wearing binder
NGT in place
no chest pain
Objective Data
-
Labs:
Laboratory Results
08/23/25
05:32
WBC 9.5
Hgb 15.7
Hct 46.7
Plt Count 199
Sodium 141
Potassium 4.1
Chloride 102
Carbon Dioxide 32 H
BUN 25 H
Creatinine 1.3
Glucose 128 H
Calcium 8.6
Vital Signs:
Vital Signs
Temp Pulse Resp BP Pulse Ox
97.7 F 85 19 172/106 97
08/23/25 07:30 08/23/25 05:34 08/23/25 05:34 08/23/25 05:34 08/23/25 05:34
I&O
08/22/25 08/23/25 08/24/25
06:59 06:59 06:59
Intake Total 310 / 310
Output Total 1150 / 1150 1020 / 1020
Balance -1150 / -1150 -710 / -710
Review of Systems
-
History Source: Patient
All other systems: Reviewed and negative
Physical Exam
-
General: No Apparent Distress
HEENT: PERRLA
Respiratory: Clear to Auscultation; Negative Wheezes
Cardiac: S1/S2 and Irregular Rhythm
GI: Other (abdominal binder in place )
Musculoskeletal: No Edema
Skin: Warm and Dry; Negative Rash
Neuro: AO x 3
Psych: Calm
Data Reviewed
-
Diagnostic Radiology: Report Reviewed by me
Labs: Labs Reviewed by me
--- NOTE | 2025-08-23 10:53 | W.PN.GS2 ---
Today's Communication / Plan
-
-- DC NGT
-- Trial of clears
-- Abdominal binder at all times
-- DAT likely to be removed as an outpatient
-- DVT: Continue to hold Eliquis (OK to resume 48 hours post-op if no signs of bleeding), Lovenox for ppx
-- OOB/ambulate
Assessment / Plan
-
Patient is a 60 yo M p/w symptomatic ventral hernia with component of SBO
POD#1 s/p RAL ventral hernia repair with mesh
AVSS
Labs notable for normal WBC, stable Hb, normal electrolytes, stable creatinine 1.3
Recovering well overall. Operative findings of mildly dilated though healthy and viable small bowel. Low-volume nonbilious NGT outputs with passage of flatus. Plan to remove NGT and trial clear liquids today. Instructed patient to go slow and
monitor his symptoms. Hopeful dietary advancement over the next 24 to 48 hours. Okay to resume Eliquis 48 hours postoperatively.
-- DC NGT
-- Trial of clears
-- Pain control: Tylenol and Oxycodone
-- Abdominal binder at all times
-- DAT likely to be removed as an outpatient
-- DVT: Continue to hold Eliquis (OK to resume 48 hours post-op if no signs of bleeding), Lovenox for ppx
-- GI: PPI
-- OOB/ambulate
Subjective Data
-
Date of Service: August 23, 2025
Reports abdominal discomfort, though overall well-controlled. No nausea or vomiting. Reports passing flatus, no BM. Afebrile.
Objective Data
-
Intake and Output
08/22/25 08/23/25 08/24/25
06:59 06:59 06:59
Intake Total 310 / 310
Output Total 1150 / 1150 1020 / 1020
Balance -1150 / -1150 -710 / -710
Intake:
IV fluids (Total) 290 / 290
Normosol 150 / 150
IV piggybacks
Amount instilled into GI Tube ( 0 / 0
Total)
[place] Sump 0 / 0
Output:
Drain Output (Total) 1000 / 1000
Right Abdomen Misha-Vance
Gastrointestinal tube output ( 600 / 600
Total)
[place] Sump 600 / 600
Urine, Voided 150 / 150 400 / 400
Vital Signs
Temp Pulse Resp BP Pulse Ox
97.7 F 85 19 172/106 97
08/23/25 07:30 08/23/25 05:34 08/23/25 05:34 08/23/25 05:34 08/23/25 05:34
Lab Results
08/23/25 05:32
08/23/25 05:32
Calcium 8.6 mg/dl (8.4-10.2) 08/23/25 05:32
Phosphorus 3.0 mg/dl (2.5-4.5) 08/22/25 04:57
Magnesium 2.4 mg/dl (1.6-2.3) H 08/23/25 05:32
Total Bilirubin 1.6 mg/dl (0.2-1.3) H 08/22/25 04:57
AST 34 U/L (17-59) 08/22/25 04:57
ALT 39 U/L (0-50) 08/22/25 04:57
Alkaline Phosphatase 114 U/L (38-126) 08/22/25 04:57
Total Protein 6.9 g/dl (6.3-8.2) D 08/22/25 04:57
Albumin 4.2 g/dl (3.5-5.0) 08/22/25 04:57
Physical Exam
-
Gen: NAD
HEENT: NGT with non-bilious outputs
Abd: soft, obese, mild/moderate tenderness, non-peritoneal, incisions c/d/i - no erythema, ecchymosis or drainage, randy Dumont replaced
Patient has a baez catheter: No
Patient has a central line: No
[2025-08-23] MEDS: TOPROL XL 75 MG PO ×2 (10:59→20:57)
[2025-08-23] MEDS: LR IV (14:39)
[2025-08-23] MEDS: LOVENOX 40 MG SC (16:51)
--- NOTE | 2025-08-23 16:53 | CM ---
Following up on Patient. RN stated patient had hernia repair so Case Management to follow if there are needs.
PLAN: TBD, Anticipate Home No Needs.
--- NOTE | 2025-08-23 17:07 | CM ---
Following up on Patient. RN stated that patient seems weak today from his surgery. Patient has a DAT drain that may not be taken out during this admission. PT/OT should be consulted or are planning to see the patient.
PLAN: TBD, Home No Needs vs. PT or SNF
--- NOTE | 2025-08-23 20:15 | PTCARENOTE ---
Report given to RN caring for Pt in room 2107. Pt aaox3. satting 98% on RA. stood and pivoted slowly to wheelchair. pt transferred to room 2107 by this RN.
--- NOTE | 2025-08-23 20:20 | PTCARENOTE ---
Addendum entered by Vanessa Fernandez RN 08/24/25 02:20:
Pt has 4 lap sites with surgical adhesive left open to air. Right DAT drain minimal output, sanguinous. Abdominal binder intact as ordered.
Original Note:
Received report from IMU RN. Patient arrived to unit @20:08. Pt pivoted from wheelchair to bed. Pt assessed. Vital signs stable. Care ongoing.
[2025-08-24 03:15] VITALS: BP 157/97
[2025-08-24 05:30] VITALS: BMI 42.5
[2025-08-24] MEDS: DILAUDID 0.5 MG IV ×3 (05:42→20:10)
[2025-08-24 07:15] VITALS: BP 161/103
--- NOTE | 2025-08-24 07:36 | W.PN.GS2 ---
Today's Communication / Plan
-
-- No changes from surgical perspective, awaiting more consistent ROBF prior to dietary advancement
Assessment / Plan
-
Patient is a 60 yo M p/w symptomatic ventral hernia with component of SBO
POD#2 s/p RAL ventral hernia repair with mesh
AVSS
Labs notable for normal WBC, stable Hb, normal electrolytes, stable creatinine 1.3
Recovering well overall. Operative findings of mildly dilated though healthy and viable small bowel. Continue on clears until more consistent bowel function. Instructed patient to go slow and monitor his symptoms. Okay to resume Eliquis 48 hours
postoperatively.
-- Clears
-- Pain control: Tylenol and Oxycodone
-- Abdominal binder at all times
-- DAT likely to be removed as an outpatient
-- DVT: Continue to hold Eliquis (OK to resume 48 hours post-op if no signs of bleeding), Lovenox for ppx
-- GI: PPI
-- OOB/ambulate
Subjective Data
-
Date of Service: August 24, 2025
Reports abdominal soreness particularly with coughing. No nausea or vomiting. Reports passing flatus, no BM. Afebrile.
Objective Data
-
Intake and Output
08/23/25 08/24/25 08/25/25
06:59 06:59 06:59
Intake Total 310 / 310 1700 / 1700
Output Total 1020 / 1020 820 / 820
Balance -710 / -710 880 / 880
Intake:
Oral fluids 1200 / 1200
IV fluids (Total) 290 / 290 500 / 500
Normosol 150 / 150
IV piggybacks 20 20
Amount instilled into GI Tube ( 0 / 0
Total)
Marion Sump 0 / 0
Output:
Drain Output (Total) 20 / 20 20 / 20
Right Abdomen Misha-Vance
Gastrointestinal tube output ( 600 / 600
Total)
Marion Sump 600 / 600
Urine, Voided 400 / 400 800 / 800
Vital Signs
Temp Pulse Resp BP Pulse Ox
98.1 F 87 20 157/97 94
08/24/25 03:15 08/24/25 03:15 08/24/25 03:15 08/24/25 03:15 08/24/25 03:15
Calcium 8.6 mg/dl (8.4-10.2) 08/23/25 05:32
Phosphorus 3.0 mg/dl (2.5-4.5) 08/22/25 04:57
Magnesium 2.4 mg/dl (1.6-2.3) H 08/23/25 05:32
Total Bilirubin 1.6 mg/dl (0.2-1.3) H 08/22/25 04:57
AST 34 U/L (17-59) 08/22/25 04:57
ALT 39 U/L (0-50) 08/22/25 04:57
Alkaline Phosphatase 114 U/L (38-126) 08/22/25 04:57
Total Protein 6.9 g/dl (6.3-8.2) D 08/22/25 04:57
Albumin 4.2 g/dl (3.5-5.0) 08/22/25 04:57
Physical Exam
-
Gen: NAD
Abd: soft, obese, mild tenderness, non-peritoneal, DAT serosang, incisions c/d/i - no erythema, ecchymosis or drainage, binder replaced
Patient has a baez catheter: No
Patient has a central line: No
[2025-08-24 07:56] LABS: Hematocrit 48.6 % (39.0-52.0); Hemoglobin 15.9 g/dL (13.0-18.0); Mean Corp Hgb Conc. 32.7 g/dL (33.0-37.0); Mean Corpuscular Volume 98.0 fL (80.0-94.0); Nucleated Red Blood Cells % 0 % (-); Platelet Count 250 10^3/uL (130-400); Red Cell Dist. Width 13.3 % (11.5-14.5)
[2025-08-24] MEDS: TOPROL XL 75 MG PO ×2 (08:51→20:10)
[2025-08-24] MEDS: NSS (PRESERVATIVE FREE) 10 ML IV (08:52)
[2025-08-24] MEDS: PROTONIX IV 40 MG IV (08:52)
[2025-08-24 08:56] LABS: Blood Urea Nitrogen 25 mg/dl (9-20); Calcium 8.6 mg/dl (8.4-10.2); Carbon Dioxide 29 mmol/L (22-30); Chloride 103 mmol/L (98-107); Estimated Creatinine Clearance 88 ml/min; Glucose 120 mg/dl (70-99); Potassium 3.5 mmol/L (3.5-5.1); Sodium 138 mmol/L (135-145); eGFR > 60.00
--- NOTE | 2025-08-24 09:59 | W.PN.HOSP.TC ---
Today's Communication/Plan
-
see plan
Assessment / Plan
Assessment / Plan
Mr. Mark Saenz is a 60 yo man with hx essential HTN, HFmrEF (40%), persistent atrial fibrillation, presents to the ER with abdominal pain found to have SBO in setting of large ventral hernia.
Abdomen X-Ray
IMPRESSION:
Findings suspicious for small bowel obstruction.
CT A/P
IMPRESSION:
1. Findings compatible with small bowel obstruction secondary to large ventral hernia which contains multiple loops of small bowel. Dilated small bowel loops measuring up to 4.5 cm with mild mesenteric edema. No pneumatosis or portal venous gas.
2. Hepatic steatosis.
3. Additional findings above.
CXR
IMPRESSION:
Mildly increased interstitial markings bilaterally, nonspecific. This may be a chronic finding versus mild interstitial edema. No focal airspace disease. No large effusions.
Mild cardiomegaly.
OR 08/22/25
PROCEDURE: Robotic ventral and umbilical hernia repair with mesh,
modifier 22 for severe obesity.
SBO 2/2 large ventral hernia
SIRS 2/2 above
Lactic Acidosis
-CT results above, no pneumatosis or portal venous gas; on exam hernia reducible.
-now s/p robotic ventral and umbilical hernia repair with mesh 08/22/25; modified 2/2 obesity; small bowel easily reducible -
-NGT out 08/23; started on clears; fluids off
-pain control
-IV Zofran PRN
-lactic acidosis resolved
-leukocytosis resolved
-appreciate surgery
Atrial Fibrillation with RVR
Persistent Atrial Fibrillation
Abnl EKG - -repeated EKG when HR better controlled --> ST depressions resolved
-admitted on IV Dilt gtt while NPO
-patient is on Metop 75 XL BID at home --> resume
-resume Eliquis when OK with surgery (confirming for later today)
Nonischemic cardiomyopathy
-TTE 03/16 with EF 40%, global hypokinesis
-patient with cardiac cath 2021 without significant CAD
-he is on Lasix 40mg PO QD at home, hold
-hold [employer]PECT[employer] Farxiga
-monitor volume status closely - likely resume diuretics tomorrow
Hx Alcohol use, patient is not a daily drinker. Last drink was 6 days ago and he goes many days without drinking
Acute Kidney Injury
resolved with fluids
Essential HTN - hold Metoprolol
Hyperlipidemia
DVT PPx Lovenox subQ
FULL CODE
51 minutes spent on patient care
Anticipated Discharge: 24 - 48 hours
Subjective/Interval History
-
Date of Service: August 24, 2025
passed gas
watery BM this morning
Objective Data
-
Labs:
Laboratory Results
08/24/25 08/24/25
07:15 08:29
WBC 11.7 H
Hgb 15.9
Hct 48.6
Plt Count 250 D
Sodium Cancelled 138
Potassium Cancelled 3.5
Chloride Cancelled 103
Carbon Dioxide Cancelled 29
BUN Cancelled 25 H
Creatinine Cancelled 1.2
Glucose Cancelled 120 H
Calcium Cancelled 8.6
Vital Signs:
Vital Signs
Temp Pulse Resp BP Pulse Ox
97.7 F 91 16 161/103 95
08/24/25 07:15 08/24/25 07:15 08/24/25 07:15 08/24/25 07:15 08/24/25 07:15
I&O
08/23/25 08/24/25 08/25/25
06:59 06:59 06:59
Intake Total 310 / 310 1700 / 1700
Output Total 1020 / 1020 820 / 820
Balance -710 / -710 880 / 880
Review of Systems
-
History Source: Patient
All other systems: Reviewed and negative
Physical Exam
-
General: No Apparent Distress
HEENT: PERRLA
Respiratory: Clear to Auscultation; Negative Wheezes
Cardiac: S1/S2 and Irregular Rhythm
GI: Other (abdominal binder in place )
Musculoskeletal: No Edema
Skin: Warm and Dry; Negative Rash
Neuro: AO x 3
Psych: Calm
Data Reviewed
-
Diagnostic Radiology: Report Reviewed by me
Labs: Labs Reviewed by me
[2025-08-24 11:50] VITALS: BP 158/95
[2025-08-24] MEDS: KCL 160 MEQ IV (12:52)
--- NOTE | 2025-08-24 14:21 | CM ---
POD#2 s/p ventral hernia repair with mesh. DAT drain will probably remain at discharge. abdominal binder. clear liquid diet. Discharge POC: Anticipate home with OUSMANE RN if drain remains in place.
[2025-08-24 15:20] VITALS: BP 175/102
[2025-08-24 19:59] VITALS: BP 146/90
[2025-08-24] MEDS: ELIQUIS 5 MG PO (20:10)
[2025-08-24 23:13] VITALS: BP 139/94
[2025-08-25] VITALS (7 sets, daily range): BP systolic 87–145; BP diastolic 51–95; PULSE 94; O2SAT 95; BMI 42.6
[2025-08-25] MEDS: ANESTHETIC LOZENGE 1 LOZENGE PO (00:29)
[2025-08-25] MEDS: DILAUDID 0.5 MG IV (00:29)
[2025-08-25 07:27] LABS: Blood Urea Nitrogen 21 mg/dl (9-20); Calcium 8.5 mg/dl (8.4-10.2); Carbon Dioxide 32 mmol/L (22-30); Chloride 100 mmol/L (98-107); Estimated Creatinine Clearance 96 ml/min; Glucose 129 mg/dl (70-99); Magnesium 2.2 mg/dl (1.6-2.3); Potassium 3.8 mmol/L (3.5-5.1); Sodium 137 mmol/L (135-145); eGFR > 60.00
[2025-08-25 07:35] LABS: Hematocrit 44.5 % (39.0-52.0); Hemoglobin 15.2 g/dL (13.0-18.0); Mean Corp Hgb Conc. 34.2 g/dL (33.0-37.0); Mean Corpuscular Volume 98.5 fL (80.0-94.0); Platelet Count 223 10^3/uL (130-400); Red Cell Dist. Width 13.3 % (11.5-14.5)
--- NOTE | 2025-08-25 09:18 | W.PN.GS2 ---
Today's Communication / Plan
-
Advance diet
PO analgesics
Dispo planning
Assessment / Plan
-
Patient is a 60 yo M p/w symptomatic ventral hernia with component of SBO
POD#3 s/p RAL ventral hernia repair with mesh. Operative findings of mildly dilated though healthy and viable small bowel.
AVSS
Labs notable for normal WBC, stable Hb, normal electrolytes, Cr now normalized to 1.1
Recovering well overall with good bowel function
Plan:
-- Advance to regular diet
-- Pain control: Tylenol and Oxycodone, transition off IV dilaudid
-- Abdominal binder at all times
-- DAT likely to be removed as an outpatient
-- Back on PO Eliquis, h/h remains stable
-- GI: PPI
-- OOB/ambulate
Ok for discharge from surgical standpoint once pain controlled on oral analgesics and tolerated diet. Anticipate later today vs tomorrow.
Subjective Data
-
Date of Service: August 25, 2025
Pt seen and examined at bedside with Dr. Bustamante. Abdominal soreness, has been requiring analgesics. Denies n/v. Passing flatus and some stools.
Objective Data
-
Intake and Output
08/24/25 08/25/25 08/26/25
06:59 06:59 06:59
Intake Total 1700 / 1700 192 / 1920
Output Total 820 / 820
Balance 880 / 880 1905 / 190
Intake:
Oral fluids 1200 / 1200 1760 / 1760
IV fluids (Total) 500 / 500
IV piggybacks 160 / 160
Output:
Drain Output (Total)
Right Abdomen Misha-Vance
Urine, Voided 800 / 800
Other:
How many times incontinent 1
MODERATE amount urine
Number of approximated MODERATE 1
amounts of urine
Vital Signs
Temp Pulse Resp BP Pulse Ox
97.8 F 73 18 129/93 95
08/25/25 06:22 08/25/25 06:22 08/25/25 06:22 08/25/25 06:22 08/25/25 06:22
Lab Results
08/25/25 06:18
08/25/25 06:18
Calcium 8.5 mg/dl (8.4-10.2) 08/25/25 06:18
Phosphorus 3.0 mg/dl (2.5-4.5) 08/22/25 04:57
Magnesium 2.2 mg/dl (1.6-2.3) 08/25/25 06:18
Total Bilirubin 1.6 mg/dl (0.2-1.3) H 08/22/25 04:57
AST 34 U/L (17-59) 08/22/25 04:57
ALT 39 U/L (0-50) 08/22/25 04:57
Alkaline Phosphatase 114 U/L (38-126) 08/22/25 04:57
Total Protein 6.9 g/dl (6.3-8.2) D 08/22/25 04:57
Albumin 4.2 g/dl (3.5-5.0) 08/22/25 04:57
Physical Exam
-
Gen: NAD
Abd: soft, obese, mild tenderness, non-peritoneal, DAT serosang, incisions c/d/i - no erythema, ecchymosis or drainage, binder replaced
Patient has a baez catheter: No
Patient has a central line: No
--- NOTE | 2025-08-25 09:22 | W.PN.HOSP.TC ---
Today's Communication/Plan
-
Regular Diet
Eliquis resumed
Resume oral Lasix
PT ordered
possible DC tomorrow
follow up further surgery recs
Assessment / Plan
Assessment / Plan
Mr. Mark Saenz is a 60 yo man with hx essential HTN, HFmrEF (40%), persistent atrial fibrillation, presents to the ER with abdominal pain found to have SBO in setting of large ventral hernia.
Abdomen X-Ray
IMPRESSION:
Findings suspicious for small bowel obstruction.
CT A/P
IMPRESSION:
1. Findings compatible with small bowel obstruction secondary to large ventral hernia which contains multiple loops of small bowel. Dilated small bowel loops measuring up to 4.5 cm with mild mesenteric edema. No pneumatosis or portal venous gas.
2. Hepatic steatosis.
3. Additional findings above.
CXR
IMPRESSION:
Mildly increased interstitial markings bilaterally, nonspecific. This may be a chronic finding versus mild interstitial edema. No focal airspace disease. No large effusions.
Mild cardiomegaly.
OR 08/22/25
PROCEDURE: Robotic ventral and umbilical hernia repair with mesh,
modifier 22 for severe obesity.
SBO 2/2 large ventral hernia
SIRS 2/2 above
Lactic Acidosis
-CT results above, no pneumatosis or portal venous gas; on exam hernia reducible.
-now s/p robotic ventral and umbilical hernia repair with mesh 08/22/25; modified 2/2 obesity; small bowel easily reducible -
-NGT out 08/23; started on clears; fluids off
-08/25 - advanced to regular
-pain control
-IV Zofran PRN
-lactic acidosis resolved
-leukocytosis resolved
-appreciate surgery
Atrial Fibrillation with RVR
Persistent Atrial Fibrillation
Abnl EKG - -repeated EKG when HR better controlled --> ST depressions resolved
-admitted on IV Dilt gtt while NPO
-patient is on Metop 75 XL BID at home --> resume
- [employer] eliquis resumed
Nonischemic cardiomyopathy
-TTE 03/16 with EF 40%, global hypokinesis
-patient with cardiac cath 2021 without significant CAD
-he is on Lasix 40mg PO QD at home --> resume today
-hold [employer] Farxiga
-monitor volume status closely - likely resume diuretics tomorrow
Hx Alcohol use, patient is not a daily drinker. Last drink was 6 days ago and he goes many days without drinking
Acute Kidney Injury
resolved with fluids
Essential HTN - [employer] Metoprolol
Hyperlipidemia
DVT PPx Lovenox subQ
FULL CODE
51 minutes spent on patient care
Anticipated Discharge: 24 - 48 hours
Subjective/Interval History
-
Date of Service: August 25, 2025
feeling better
about to eat food
had small BM
Objective Data
-
Labs:
Laboratory Results
08/25/25
06:18
WBC 8.5
Hgb 15.2
Hct 44.5
Plt Count 223
Sodium 137
Potassium 3.8
Chloride 100
Carbon Dioxide 32 H
BUN 21 H
Creatinine 1.1
Glucose 129 H
Calcium 8.5
Vital Signs:
Vital Signs
Temp Pulse Resp BP Pulse Ox
97.8 F 73 18 129/93 95
08/25/25 06:22 08/25/25 06:22 08/25/25 06:22 08/25/25 06:22 08/25/25 06:22
I&O
08/24/25 08/25/25 08/26/25
06:59 06:59 06:59
Intake Total 1700 / 1700 1920 / 1920
Output Total 820 / 820
Balance 880 / 880 1904 / 1904
Review of Systems
-
History Source: Patient
All other systems: Reviewed and negative
Physical Exam
-
General: No Apparent Distress
HEENT: PERRLA
Respiratory: Clear to Auscultation; Negative Wheezes
Cardiac: S1/S2 and Irregular Rhythm
GI: Other (abdominal binder in place )
Musculoskeletal: No Edema
Skin: Warm and Dry; Negative Rash
Neuro: AO x 3
Psych: Calm
Data Reviewed
-
Diagnostic Radiology: Report Reviewed by me
Labs: Labs Reviewed by me
--- NOTE | 2025-08-25 09:28 | CM ---
Patient seen at bedside
PT to eval
regular diet ordered today
Patient continues with grey drain
PLAN: anticipate VN vs SNF, await PT evaluation, CM to follow for needs
[2025-08-25] MEDS: NSS (PRESERVATIVE FREE) 10 ML IV (09:36)
[2025-08-25] MEDS: PROTONIX IV 40 MG IV (09:36)
[2025-08-25] MEDS: KCL 20 MEQ PO (09:39)
[2025-08-25] MEDS: FOLVITE 1 MG PO (09:40)
[2025-08-25] MEDS: VITAMIN B1 100 MG PO (09:40)
[2025-08-25] MEDS: ELIQUIS 5 MG PO ×2 (09:41→20:10)
[2025-08-25] MEDS: TOPROL XL 75 MG PO ×2 (09:41→20:10)
[2025-08-25] MEDS: LASIX 40 MG PO (09:42)
[2025-08-25] MEDS: ROXICODONE 5 MG PO ×2 (09:42→20:11)
--- NOTE | 2025-08-25 11:49 | PTCARENOTE ---
pt's BP 87/51 post morning Lopressor and [address] Barrett via TT. pt is AOx3, no dizziness, is just experiencing indigestion from first regular meal. Laspankaj ordered
[2025-08-25] MEDS: MYLICON 80 MG PO (12:11)
[2025-08-25] MEDS: NSS 250 IV (12:20)
--- NOTE | 2025-08-25 18:27 | PTCARENOTE ---
pt states concerns of not being able to have access to groceries at times, rents a room, does not have a great support system. Is concerned may loose job d/t this surgery. 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
[2025-08-26] MEDS: ROXICODONE 5 MG PO ×4 (00:39→22:45)
[2025-08-26] MEDS: MYLICON 80 MG PO (00:41)
[2025-08-26 03:01] VITALS: BP 116/82
[2025-08-26 06:00] VITALS: BMI 42.0
[2025-08-26 07:27] VITALS: BP 105/64
[2025-08-26 08:37] LABS: Blood Urea Nitrogen 23 mg/dl (9-20); Calcium 8.5 mg/dl (8.4-10.2); Carbon Dioxide 29 mmol/L (22-30); Chloride 100 mmol/L (98-107); Estimated Creatinine Clearance 95 ml/min; Glucose 100 mg/dl (70-99); Potassium 3.6 mmol/L (3.5-5.1); Sodium 136 mmol/L (135-145); eGFR > 60.00
--- NOTE | 2025-08-26 09:15 | W.PN.HOSP.TC ---
Today's Communication/Plan
-
check C. Diff
expect DC home if tolerating regular diet
Assessment / Plan
Assessment / Plan
Mr. Mark Saenz is a 60 yo man with hx essential HTN, HFmrEF (40%), persistent atrial fibrillation, presents to the ER with abdominal pain found to have SBO in setting of large ventral hernia.
Abdomen X-Ray
IMPRESSION:
Findings suspicious for small bowel obstruction.
CT A/P
IMPRESSION:
1. Findings compatible with small bowel obstruction secondary to large ventral hernia which contains multiple loops of small bowel. Dilated small bowel loops measuring up to 4.5 cm with mild mesenteric edema. No pneumatosis or portal venous gas.
2. Hepatic steatosis.
3. Additional findings above.
CXR
IMPRESSION:
Mildly increased interstitial markings bilaterally, nonspecific. This may be a chronic finding versus mild interstitial edema. No focal airspace disease. No large effusions.
Mild cardiomegaly.
OR 08/22/25
PROCEDURE: Robotic ventral and umbilical hernia repair with mesh,
modifier 22 for severe obesity.
SBO 2/2 large ventral hernia
SIRS 2/2 above
Lactic Acidosis
-CT results above, no pneumatosis or portal venous gas; on exam hernia reducible.
-now s/p robotic ventral and umbilical hernia repair with mesh 08/22/25; modified 2/2 obesity; small bowel easily reducible -
-NGT out 08/23; started on clears; fluids off
-08/25 - advanced to regular but didn't tolerate, back on fulls. Now with increased BM, will advance diet today
-appreciate surgery
-possible DC this afternoon if tolerating diet
Diarrhea
-check C. Diff
-start probiotics
Atrial Fibrillation with RVR
Persistent Atrial Fibrillation
Abnl EKG - -repeated EKG when HR better controlled --> ST depressions resolved
-admitted on IV Dilt gtt while NPO
-patient is on Metop 75 XL BID at home --> resume
- FISHER POT eliquis resumed
Nonischemic cardiomyopathy
-TTE 03/16 with EF 40%, global hypokinesis
-patient with cardiac cath 2021 without significant CAD
-he is on Lasix 40mg PO QD at home; continue to hold today as poor PO intake, diarrhea and weight down. patient received small fluid bolus on 08/25
-resume Farxiga when tolerating diet
-monitor volume status closely - resume at home when diarrhea resolved and patient eating and drinking normally
Hx Alcohol use, patient is not a daily drinker. Last drink was 6 days ago and he goes many days without drinking
Acute Kidney Injury
resolved with fluids
Essential HTN - FISHER POT Metoprolol
Hyperlipidemia
DVT PPx Lovenox subQ
FULL CODE
51 minutes spent on patient care
Anticipated Discharge: Within 24 hours
Subjective/Interval History
-
Date of Service: August 26, 2025
now having diarrhea
no chest pain or trouble breathing
Objective Data
-
Labs:
Laboratory Results
08/26/25
07:26
Sodium 136
Potassium 3.6
Chloride 100
Carbon Dioxide 29
BUN 23 H
Creatinine 1.1
Glucose 100 H
Calcium 8.5
Vital Signs:
Vital Signs
Temp Pulse Resp BP Pulse Ox
98.3 F 82 17 105/64 97
08/26/25 07:27 08/26/25 07:27 08/26/25 07:27 08/26/25 07:27 08/26/25 07:27
I&O
08/25/25 08/26/25 08/27/25
06:59 06:59 06:59
Intake Total 1919 / 1919 480 / 480
Output Total
Balance 1905 / 1904 460 / 460
Review of Systems
-
History Source: Patient
All other systems: Reviewed and negative
Physical Exam
-
General: No Apparent Distress
HEENT: PERRLA
Respiratory: Clear to Auscultation; Negative Wheezes
Cardiac: S1/S2 and Irregular Rhythm
GI: Other (abdominal binder)
Musculoskeletal: No Edema
Skin: Warm and Dry; Negative Rash
Neuro: AO x 3
Psych: Calm
Data Reviewed
-
Diagnostic Radiology: Report Reviewed by me
Labs: Labs Reviewed by me
[2025-08-26] MEDS: TYLENOL 650 MG PO ×3 (09:33→20:20)
[2025-08-26] MEDS: ELIQUIS 5 MG PO ×2 (09:33→20:20)
[2025-08-26] MEDS: TOPROL XL 75 MG PO ×2 (09:34→20:27)
[2025-08-26] MEDS: PROTONIX IV 40 MG IV (09:34)
[2025-08-26] MEDS: NSS (PRESERVATIVE FREE) 10 ML IV (09:34)
[2025-08-26] MEDS: VISBIOME 1 CAP PO (09:36)
[2025-08-26] MEDS: VITAMIN B1 100 MG PO (09:36)
[2025-08-26] MEDS: FOLVITE 1 MG PO (09:36)
[2025-08-26 11:26] VITALS: BP 143/99
--- NOTE | 2025-08-26 12:04 | W.PN.GS2 ---
Addendum entered and electronically signed by Mark Snow MD 08/26/25 15:08:
Having some issues with pain, tolerating fulls, had 6-7 liquid stools over the last 24 hours.
AFVSS, ABD soft, mildly distended with subtle tympany, appropriately tender near incisions; DAT�20 mL serosanguineous, incisions well-approximated without erythema or drainage
� Advance to regular
� Continue pain control with Tylenol, oxycodone and Dilaudid as needed
� Continue Eliquis
� Follow-up C. difficile
�Continue binder and DAT to bulb suction
� Appreciate hospitalist; pain not well-controlled; once better controlled on oral and patient feeling more comfortable, okay for discharge from surgical standpoint, likely tomorrow
Original Note:
Today's Communication / Plan
-
advance diet
Assessment / Plan
-
Patient is a 60 yo M p/w symptomatic ventral hernia with component of SBO
POD#4 s/p RAL ventral hernia repair with mesh. Operative findings of mildly dilated though healthy and viable small bowel.
AVSS
Pain still an issue but controlled with PO meds
+Diarrhea, c-diff pending
Plan:
-- Advance to regular diet
-- Pain control: Tylenol and Oxycodone, transition off IV dilaudid
-- Abdominal binder at all times
-- DAT likely to be removed as an outpatient
-- Back on PO Eliquis, h/h remains stable
-- GI: PPI
-- OOB/ambulate
Ok for discharge from surgical standpoint once pain controlled on oral analgesics and tolerated diet. Anticipate later today vs more likely tomorrow.
Subjective Data
-
Date of Service: August 26, 2025
Pt seen and examined at bedside with Dr. Snow. Denies n/v. Tolerating PO intake but with some bloating and diarrhea. Passing flatus. Pain still present, not moving well d/t soreness
Objective Data
-
Intake and Output
08/25/25 08/26/25 08/27/25
06:59 06:59 06:59
Intake Total 1919 / 1919 480 / 480
Output Total
Balance 1905 / 190 460 / 460
Intake:
Oral fluids 1760 / 1760 480 / 480
IV piggybacks 160 / 160
Output:
Drain Output (Total)
Right Abdomen Misha-Vance
Other:
How many times incontinent 1
MODERATE amount urine
Number of approximated MODERATE 1
amounts of urine
Number of approximated LARGE 2
amounts of urine
Vital Signs
Temp Pulse Resp BP Pulse Ox
98.4 F 91 18 143/99 98
08/26/25 11:26 08/26/25 11:26 08/26/25 11:26 08/26/25 11:26 08/26/25 11:26
Lab Results
08/25/25 06:18
08/26/25 07:26
Calcium 8.5 mg/dl (8.4-10.2) 08/26/25 07:26
Phosphorus 3.0 mg/dl (2.5-4.5) 08/22/25 04:57
Magnesium 2.2 mg/dl (1.6-2.3) 08/25/25 06:18
Total Bilirubin 1.6 mg/dl (0.2-1.3) H 08/22/25 04:57
AST 34 U/L (17-59) 08/22/25 04:57
ALT 39 U/L (0-50) 08/22/25 04:57
Alkaline Phosphatase 114 U/L (38-126) 08/22/25 04:57
Total Protein 6.9 g/dl (6.3-8.2) D 08/22/25 04:57
Albumin 4.2 g/dl (3.5-5.0) 08/22/25 04:57
Physical Exam
-
Gen: NAD
Abd: soft, obese, mild distention, mild generalized tenderness, non-peritoneal, DAT serosang, incisions c/d/i - no erythema, ecchymosis or drainage, binder replaced
Patient has a baez catheter: No
Patient has a central line: No
--- NOTE | 2025-08-26 12:08 | CM ---
Chart reviewed. Patient possibly will d/c home today if tolerating diet
POD#4 s/p RAL ventral hernia repair with mesh
Therapy rec home PT, patient initially declined as he doesn't think it will be feasible considering the limited space in his home. Eventually patient agreeable to referral to [facility], allow them to call for scheduling and discuss home set up for
services
Referral entered in [facility]
VN

Plan: Home w/ VN
[2025-08-26] MEDS: TYLENOL PO ×2 (13:46→23:55)
[2025-08-26 15:49] VITALS: BP 122/69
[2025-08-26 22:31] VITALS: BP 141/90
[2025-08-27] MEDS: TYLENOL PO ×2 (05:00→14:30)
[2025-08-27] MEDS: ROXICODONE 5 MG PO ×2 (05:25→09:26)
[2025-08-27 06:00] VITALS: BMI 43.4
[2025-08-27 07:24] VITALS: BP 139/97
[2025-08-27] MEDS: NSS (PRESERVATIVE FREE) 10 ML IV (09:14)
[2025-08-27] MEDS: ELIQUIS 5 MG PO (09:15)
[2025-08-27] MEDS: VITAMIN B1 100 MG PO (09:15)
[2025-08-27] MEDS: VISBIOME 1 CAP PO (09:15)
[2025-08-27] MEDS: PROTONIX IV 40 MG IV (09:15)
[2025-08-27] MEDS: TYLENOL 650 MG PO (09:15)
[2025-08-27] MEDS: FOLVITE 1 MG PO (09:15)
[2025-08-27] MEDS: TOPROL XL 75 MG PO (09:16)
--- NOTE | 2025-08-27 09:29 | W.PN.HOSP.TC ---
Today's Communication/Plan
-
DC home today
Assessment / Plan
Assessment / Plan
Mr. Mark Saenz is a 60 yo man with hx essential HTN, HFmrEF (40%), persistent atrial fibrillation, presents to the ER with abdominal pain found to have SBO in setting of large ventral hernia.
Abdomen X-Ray
IMPRESSION:
Findings suspicious for small bowel obstruction.
CT A/P
IMPRESSION:
1. Findings compatible with small bowel obstruction secondary to large ventral hernia which contains multiple loops of small bowel. Dilated small bowel loops measuring up to 4.5 cm with mild mesenteric edema. No pneumatosis or portal venous gas.
2. Hepatic steatosis.
3. Additional findings above.
CXR
IMPRESSION:
Mildly increased interstitial markings bilaterally, nonspecific. This may be a chronic finding versus mild interstitial edema. No focal airspace disease. No large effusions.
Mild cardiomegaly.
OR 08/22/25
PROCEDURE: Robotic ventral and umbilical hernia repair with mesh,
modifier 22 for severe obesity.
SBO 2/2 large ventral hernia
SIRS 2/2 above
Lactic Acidosis
-CT results above, no pneumatosis or portal venous gas; on exam hernia reducible.
-now s/p robotic ventral and umbilical hernia repair with mesh 08/22/25; modified 2/2 obesity; small bowel easily reducible -
-NGT out 08/23; started on clears; fluids off
-now tolerating regular diet, OK for DC
Diarrhea
-check C. Diff --> negative
-start probiotics
Atrial Fibrillation with RVR
Persistent Atrial Fibrillation
Abnl EKG - -repeated EKG when HR better controlled --> ST depressions resolved
-admitted on IV Dilt gtt while NPO
-patient is on Metop 75 XL BID at home --> resume
- IP COUNSEL eliquis resumed
Nonischemic cardiomyopathy
-TTE 03/16 with EF 40%, global hypokinesis
-patient with cardiac cath 2021 without significant CAD
-he is on Lasix 40mg PO QD at home; continue to hold today as poor PO intake, diarrhea and weight down. patient received small fluid bolus on 08/25
-resume Farxiga when tolerating diet
-monitor volume status closely - resume at home when diarrhea resolved and patient eating and drinking normally
Hx Alcohol use, patient is not a daily drinker. Last drink was 6 days ago and he goes many days without drinking
Acute Kidney Injury
resolved with fluids
Essential HTN - IP COUNSEL Metoprolol
Hyperlipidemia
DVT PPx Lovenox subQ
FULL CODE
51 minutes spent on patient care
Anticipated Discharge: Today
Subjective/Interval History
-
Date of Service: August 27, 2025
feeling well
ate well
feels ready to leave
Objective Data
-
Vital Signs:
Vital Signs
Temp Pulse Resp BP Pulse Ox
98.3 F 82 18 139/97 97
08/27/25 07:24 08/27/25 07:24 08/27/25 07:24 08/27/25 07:24 08/27/25 07:24
I&O
08/26/25 08/27/25 08/28/25
06:59 06:59 06:59
Intake Total 480 / 480 1860 / 1860
Output Total / 30
Balance 460 / 460 1830 / 1830
Review of Systems
-
History Source: Patient
All other systems: Reviewed and negative
Physical Exam
-
General: No Apparent Distress
HEENT: PERRLA
Respiratory: Clear to Auscultation; Negative Wheezes
Cardiac: S1/S2 and Irregular Rhythm
GI: Other (abdominal binder)
Musculoskeletal: No Edema
Skin: Warm and Dry; Negative Rash
Neuro: AO x 3
Psych: Calm
Data Reviewed
-
Diagnostic Radiology: Report Reviewed by me
Labs: Labs Reviewed by me
--- NOTE | 2025-08-27 09:36 | W.DS.TRANS ---
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
-
Discharge Instructions:
Sleep Apnea Risk High
Discharge Diagnosis/Procedures Robotic ventral hernia repair with mesh
Diet Regular
Activity No strenuous activity
Additional Activity No heavy lifting (>20 lbs) for 4 to 6 weeks
postoperatively
Driving Restrictions No driving if too sore or taking narcotics
Bathing Restrictions OK to Shower
Wound Care Keep incisions clean and dry. Glue will flake
off in 2 to 3 weeks. Stitches will dissolve.
Empty DAT drain daily and record outputs. Drain
to be removed as an outpatient after the outputs
< 20 mL for 2 consecutive days. Use abdominal
binder for the first 2 to 3 weeks
postoperatively.
Instructions: How to care for a closed suction drain
Stand-Alone Forms:
Changes to Home Medications: Yes
Discharge Medications:
DC Medications w/original date entered in [facility]
dapagliflozin propanediol 10 mg tablet (Farxiga) 10 mg PO DAILY Heart Failure 05/23/24
apixaban 5 mg tablet (Eliquis) 5 mg PO BID Blood Clot Prevention/Tx 08/21/25
folic acid 1 mg tablet 1 mg PO DAILY Supplement 08/21/25
furosemide 40 mg tablet 40 mg PO DAILY Fluid Retention/Swelling 08/21/25
metoprolol succinate 50 mg tablet,extended release 24 hr 75 mg PO BID Heart Failure 08/21/25
thiamine HCl (vitamin B1) 100 mg tablet 100 mg PO DAILY Supplement 08/21/25
Lactobac/Bifidobac [Visbiome] 1 cap PO DAILY ##0 08/27/25
oxycodone 5 mg tablet 5 mg PO Q6HPRN PRN severe pain #10 tabs 08/27/25
Home Medication Changes
addition of oxycodone PRN
Pending Results: No
--- NOTE | 2025-08-27 09:51 | W.PN.GS2 ---
Addendum entered and electronically signed by aMrk Snow MD 08/27/25 18:38:
The MANAGEMENT PSYCHOLOGIST's note was reviewed and I agree with the note. Patient was not personally seen as he was discharged before I was available
Original Note:
Today's Communication / Plan
-
dispo planning
Assessment / Plan
-
Patient is a 60 yo M p/w symptomatic ventral hernia with component of SBO
POD#5 s/p RAL ventral hernia repair with mesh. Operative findings of mildly dilated though healthy and viable small bowel.
AVSS
Pain improved
Diarrhea improving, c-diff negative
Plan:
-- Doing well with solid food, continue current diet
-- Pain control: Tylenol and Oxycodone
-- Abdominal binder at all times
-- DAT to remain in place upon d/c, will remove in clinic early this week
-- Back on PO Eliquis, h/h remains stable
-- GI: PPI
-- OOB/ambulate
Ok for discharge from surgical standpoint
Subjective Data
-
Date of Service: August 27, 2025
Pt seen and examined at bedside. Denies n/v. Tolerating diet. Ambulating better. Passing gas. Diarrhea slowed.
Objective Data
-
Intake and Output
08/26/25 08/27/25 08/28/25
06:59 06:59 06:59
Intake Total 480 / 480 1859
Output Total
Balance 460 / 460 1829
Intake:
Oral fluids 480 / 480 1859
Output:
Drain Output (Total)
Right Abdomen Misha-Vance
Other:
Number of approximated MODERATE 3
amounts of urine
Number of approximated LARGE 2
amounts of urine
Vital Signs
Temp Pulse Resp BP Pulse Ox
98.3 F 82 18 139/97 97
08/27/25 07:24 08/27/25 07:24 08/27/25 07:24 08/27/25 07:24 08/27/25 07:24
Lab Results
08/25/25 06:18
08/26/25 07:26
Calcium 8.5 mg/dl (8.4-10.2) 08/26/25 07:26
Phosphorus 3.0 mg/dl (2.5-4.5) 08/22/25 04:57
Magnesium 2.2 mg/dl (1.6-2.3) 08/25/25 06:18
Total Bilirubin 1.6 mg/dl (0.2-1.3) H 08/22/25 04:57
AST 34 U/L (17-59) 08/22/25 04:57
ALT 39 U/L (0-50) 08/22/25 04:57
Alkaline Phosphatase 114 U/L (38-126) 08/22/25 04:57
Total Protein 6.9 g/dl (6.3-8.2) D 08/22/25 04:57
Albumin 4.2 g/dl (3.5-5.0) 08/22/25 04:57
Physical Exam
-
Gen: NAD
Abd: soft, obese, mild distention, mild generalized tenderness, non-peritoneal, DAT serosang, incisions c/d/i - no erythema, ecchymosis or drainage, binder replaced
Patient has a baez catheter: No
Patient has a central line: No
--- NOTE | 2025-08-27 10:07 | CM ---
Addendum entered by Darell Alfaro 08/27/25 14:14:
DANA Lozoya rec' call that patient does not have a ride home. DANA Lozoya spoke to patient and he has no family, friend unable to pick him up, and his LL is not as well. DANA Lozoya arranged Lyft for transport home today.
Original Note:
Following up on patient. Patient discharging, no IMM needed. Patient is set up with [facility] already.
PLAN: Home with [facility]
--- NOTE | 2025-08-27 12:07 | W.DCSUMMARY ---
Discharge Summary
Discharge Data
Date of Admission: 08/21/25
Date of Discharge: 08/27/25
-
Pending Results: No
Hospital Course
Discharging Physician : Dr. Amanda Barrett
Disposition : Home with Home Health
Primary care physician : Dr. Lebron Noel
Principal Discharge diagnosis : symptomatic ventral hernia with component of SBO
Hospital Course :
Mr. 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
On admission patient went into atrial fibrillation with RVR. Blood pressure stable. Labs with leukocytosis. CT showed large ventral hernia with evidence of SBO. Patient was admitted to medicine with GS consulting. He underwent hernia repair the
following morning with findings of easily reducible small bowel.
Patient did well post-op with removal of NGT and gradual advancement of diet. He is tolerating a regular diet prior to discharge.
Regarding afib with RVR, patient was maintained on IV diltiazem when NPO then heart rates controlled when place back on his [employer] Metoprolol. His Eliquis is resumed prior to discharge without evidence of active bleeding.
He was off Lasix during hospital stay with less PO intake, remains euvolemic and will resume Lasix at discharge.
Patient is told to continue abdominal binder for 2-3 weeks per surgery and is discharged with DAT drain.
Time spent on discharge was 32 minutes.
Important imaging findings :
Abdomen X-Ray
IMPRESSION:
Findings suspicious for small bowel obstruction.
CT A/P
IMPRESSION:
1. Findings compatible with small bowel obstruction secondary to large ventral hernia which contains multiple loops of small bowel. Dilated small bowel loops measuring up to 4.5 cm with mild mesenteric edema. No pneumatosis or portal venous gas.
2. Hepatic steatosis.
3. Additional findings above.
CXR
IMPRESSION:
Mildly increased interstitial markings bilaterally, nonspecific. This may be a chronic finding versus mild interstitial edema. No focal airspace disease. No large effusions.
Mild cardiomegaly.
Procedure findings :
OR 08/22/25
PROCEDURE: Robotic ventral and umbilical hernia repair with mesh,
modifier 22 for severe obesity.
Discharge Plan
-
Patient Disposition: Home (Routine Discharge)
Discharge Diagnosis/Procedures: Robotic ventral hernia repair with mesh
Condition: Good
Diet: Regular
Activity: No strenuous activity
Additional Activity: No heavy lifting (>20 lbs) for 4 to 6 weeks postoperatively
Driving Restrictions: No driving if too sore or taking narcotics
Bathing Restrictions: OK to Shower
Wound Care: Keep incisions clean and dry. Glue will flake off in 2 to 3 weeks. Stitches will dissolve. Empty DAT drain daily and record outputs. Drain to be removed as an outpatient after the outputs < 20 mL for 2 consecutive days. Use abdominal
binder for the first 2 to 3 weeks postoperatively.
Activity Restrictions/Additional Instructions:
Call for fevers (>100.5), nausea or vomiting, worsening abdominal pain, issues with constipation (if no bowel movement 24 hours take MiraLAX, if no results take milk of magnesia)
Instructions: How to care for a closed suction drain
Referrals:
Lebron Noel DO [Family Provider, Family Practice] - in less than 1 week
Erick Tran MD [Active, Surgical] - in one to two weeks
Referral Note: DAT drain
Additional Discharge Medication Instructions: You may take oxycodone as needed for severe pain
You may buy probiotics over the counter
Prescriptions:
New
oxycodone 5 mg Tablet
5 mg PO Q6HPRN PRN (Reason: severe pain) Qty: 10 0RF
Lactobac/Bifidobac [Visbiome]
1 cap PO DAILY Qty: 0 0RF
Continued
dapagliflozin propanediol [Farxiga] 10 mg Tablet
10 mg PO DAILY
furosemide 40 mg tablet
40 mg PO DAILY
metoprolol succinate 50 mg tablet extended release 24 hr
75 mg PO BID
thiamine HCl (vitamin B1) 100 mg tablet
100 mg PO DAILY
folic acid 1 mg tablet
1 mg PO DAILY
Eliquis 5 mg tablet
5 mg PO BID
Discharge Orders:
Discharge Patient (As Directed); Ordered 08/27/25
Ordered By: Amanda Barrett
Discharge Date and Time
Print Language: FILIPINO
[2025-08-27 12:26] VITALS: BP 127/85
== END 2025-08-27 13:57 | disposition home or self-care (01) | DRG 354 ==
LOC: 2 SOUTH 10:13
PROVIDERS: Surgery; ADMITTING PHYSICIAN Student in an Organized Health Care Education/Training Program; CONSULT PHYSICIAN Surgery; EMERGENCY PHYSICIAN Emergency Medicine; FAMILY PHYSICIAN Family Medicine
PROC: 8E0W4CZ Robotic Assisted Procedure of Trunk Region, Percutaneous Endoscopic Approach (ICD-10-PCS; 2025-08-22)
PROC: 0WUF4JZ Supplement Abdominal Wall with Synthetic Substitute, Percutaneous Endoscopic Approach (ICD-10-PCS; 2025-08-22)
DX: K43.6 Other and unspecified ventral hernia with obstruction, without gangrene (principal); E87.20 Acidosis, unspecified; I42.8 Other cardiomyopathies; I48.19 Other persistent atrial fibrillation; N17.9 Acute kidney failure, unspecified; I50.22 Chronic systolic (congestive) heart failure; R65.10 Systemic inflammatory response syndrome (SIRS) of non-infectious origin without acute organ dysfunction; Z68.41 Body mass index [BMI] 40.0-44.9, adult; K42.9 Umbilical hernia without obstruction or gangrene; E78.5 Hyperlipidemia, unspecified; F41.9 Anxiety disorder, unspecified; I11.0 Hypertensive heart disease with heart failure; E66.01 Morbid (severe) obesity due to excess calories; F32.A Depression, unspecified; K66.0 Peritoneal adhesions (postprocedural) (postinfection); F17.200 Nicotine dependence, unspecified, uncomplicated; K76.0 Fatty (change of) liver, not elsewhere classified; N40.0 Benign prostatic hyperplasia without lower urinary tract symptoms; D72.829 Elevated white blood cell count, unspecified; Z11.52 Encounter for screening for COVID-19; Z79.01 Long term (current) use of anticoagulants; Z79.899 Other long term (current) drug therapy
CPT/HCPCS: 71045; 74018; 74177; 80048; 80053; 81003; 81015; 82962; 83605; 83690; 83735; 83880; 84100; 84484; 85025; 85027; 86850; 86900; 86901; 87040; 87147; 87205; 87324; 87449; 87502; 87811; 93005; 96361; 96374; 96375; 96376; 97116; 97162; 97530; 99291; C1713; Q9967